=== PATIENT | female | born 1975 | race Caucasian/White ===

== ENCOUNTER 2018-06-08 16:42 | Emergency (ER) | payer OTHER, SELFPAY ==
[2018-06-08 16:47] VITALS: BP 124/76; PULSE 68; RESP 20; TEMP 36.7; O2SAT 100
[2018-06-08 17:35] LABS: Add Manual Diff / Slide Review NO; Basophils Percent Auto 0.4 % (0-2); Eosinophils Percent Auto 1.6 % (2-4); Hematocrit 37.6 % (36-46); Hemoglobin 12.1 g/dL (12.0-16.0); Lymphocytes Percent Auto 26.4 % (25-40); Mean Corpuscular HGB Conc 32.1 % (30-36); Mean Corpuscular Hemoglobin 23.1 PG (26-34); Mean Corpuscular Volume 71.9 fL (80-100); Monocytes Percent Auto 7.6 % (3-14); Neutrophils Absolute Auto 3600 /uL (3000-5900); Platelet Count 268 X10^3/uL (150-400); Red Blood Cell Count 5.23 X10^6/uL (4.0-5.2); Red Cell Distribution Width 15.2 % (11.6-14.8); White Blood Cell Count 5.7 X10^3/uL (4.5-11.0)
[2018-06-08 17:44] LABS: Ethanol (ETOH) < 10 mg/dL
[2018-06-08 17:46] LABS: Alanine Aminotransferase 32 IU/L (9-52); Albumin 4.4 g/dL (3.5-5.0); Albumin Globulin Ratio 1.6 (1.0-2.8); Alkaline Phosphatase 53 U/L (38-126); Aspartate Aminotransferase 29 IU/L (14-36); BUN Creatinine Ratio 8.9 (6-22); Bilirubin Total 0.3 mg/dL (0.2-1.3); Blood Urea Nitrogen 8 mg/dL (7-17); Calcium 9.2 mg/dL (8.4-10.2); Carbon Dioxide 28 mmol/L (22-32); Chloride 101 mmol/L (98-107); Estimated Glomerular Filt Rate > 60.0 mL/min (>60); Globulin 2.7 g/dL (1.7-4.1); Glucose 92 mg/dL (70-100); HEMOLYSIS < 15 (0-50); Sodium 141 mmol/L (137-145); Total Protein 7.1 g/dL (6.3-8.2)
[2018-06-08 17:53] LABS: RBC Urine None Seen (0-5/HPF)
[2018-06-08 17:56] LABS: Appearance Urine UA CLEAR; Bilirubin Urine UA NEGATIVE (NEGATIVE); Color Urine UA YELLOW; Glucose Urine UA NEGATIVE (Normal); Ketones Urine UA NEGATIVE (NEGATIVE); Leukocyte Esterase Urine UA NEGATIVE (NEGATIVE); Nitrite Urine UA NEGATIVE (Negative); Occult Blood Urine UA NEGATIVE (Negative); Protein Urine UA NEGATIVE (Negative); Urobilinogen Urine UA 0.2 E.U./dL (0.2)
[2018-06-08 18:03] LABS: Urine Amphetamines Negative (Negative); Urine Barbiturates Negative (Negative); Urine Benzodiazepines Positive (Negative); Urine Cocaine Negative (Negative); Urine MDMA Negative (Negative); Urine Methadone Negative (Negative); Urine Methamphetamines Negative (Negative); Urine Morphine/Opi cutoff 2000 Negative (Negative); Urine Oxycodone Negative (Negative); Urine Phencyclidine Negative (Negative); Urine Tetrahydrocannabinol Negative (Negative); Urine Tricyclic Antidepressant Negative (Negative)
--- NOTE | 2018-06-08 18:04 | ED.PSYCH ---
HPI - Psych General Chief Complaint: Psychiatric Symptoms Stated Complaint: ACTIVE suicidal Time Seen by Provider: 06/08/18 17:05 Source: patient and family Mode of arrival: ambulatory Limitations: no limitations History of Present Illness HPI Narrative: 43-year-old nonsmoking female presents with her significant other and the chief complaint of suicidal ideation with plan. The patient is a rapid cycling bipolar with anxiety who has been medically compliant developed suicidal ideation last evening while driving home from [place]. She keeps a knife in her car and plan to deeply lacerated her arm and see if she would bleed out before she either got to a hassle or crash. When she got home she contemplated taking all of the acetaminophen in her house or even her daughter's insulin. She made it through the evening okay and took a Xanax to help her sleep. Earlier today she was seen and evaluated by her psychiatrist whom sent her to the emergency department for evaluation. The patient denies any substance abuse or ingestion. about 1 year ago she attempted suicide with an overdose of Ambien and was admitted to our ICU before being medically cleared and then transferred to [facility]. she states her main trigger is stress associated with her job MD complaint: suicidal ideation and feels depressed Onset (ago): hour(s) Duration: constant History of same: Yes Relieving factors: none Context: significant life stressor Associated psychiatric symptoms: depression and suicidal ideation Associated symptoms: denies other symptoms Treatments prior to arrival: none If self harm: admits thoughts of self harm and has plan Related Data Home Medications Medication Instructions Recorded Confirmed alprazolam 1 - 2 mg PO BEDTIME #0 05/05/17 06/08/18 albuterol sulfate [Ventolin HFA] 2 puff INHALATION Q6H PRN 06/08/18 06/08/18 fluoxetine 40 mg PO DAILY 06/08/18 06/08/18 lamotrigine 150 mg PO DAILY 06/08/18 06/08/18 Allergies Allergy/AdvReac Type Severity Reaction Status Date / Time Sulfa (Sulfonamide Allergy Intermediate RASH Unverified 11/12/17 12:18 Antibiotics) [SULFA (SULFONAMIDE ANTIBIOTICS)] Review of Systems Review of Systems All systems reviewed & are unremarkable except as noted in HPI and below Constitutional Denies chills, Denies fever(s), Denies lethargy and Denies weakness Eyes Denies change in vision, Denies eye discharge, Denies irritation and Denies loss of vision ENT Ears, Nose, Mouth, and Throat: Denies change in voice, Denies neck pain and Denies sore throat Cardiovascular Denies chest pain, Denies irregular heart rhythm, Denies lightheadedness, Denies palpitations, Denies dyspnea, Denies dyspnea on exertion and Denies orthopnea Respiratory Denies cough, Denies dyspnea, Denies dyspnea on exertion and Denies wheezing Gastrointestinal Gastrointestinal: Denies abdominal pain, Denies change in bowel habits, Denies diarrhea, Denies nausea and Denies vomiting Genitourinary Denies hematuria, Denies flank pain, Denies urinary incontinence and Denies urinary urgency Musculoskeletal Denies neck pain Integumentary/Breasts Denies pruritus, Denies erythema, Denies rash and Denies wounds Neurologic Denies confusion, Denies loss of vision and Denies weakness Psychiatric Denies anxiety, Denies confusion, Reports depression, Denies paranoia, Denies visual hallucinations, Denies hallucinations, Denies tactile hallucinations, Denies homicidal ideation and Reports suicidal ideation Endocrine Denies palpitations Hematologic/Lymphatic Denies easy bruising Allergic/Immunologic Denies wheezing [facility] Social History Smoking Status: Never smoker Exam Narrative Exam Narrative: GENERAL: This is a well-nourished, well-developed patient, in mild distress. tearful but making good eye contact and conversational HEAD: Atraumatic. Normocephalic. No temporal or scalp tenderness. EYES: Pupils equal round and reactive. Extraocular motions intact. No scleral icterus. No injection or drainage. ENT: Nose without bleeding, purulent drainage or septal hematoma. Throat without erythema, tonsillar hypertrophy or exudate. Uvula midline. Airway patent. NECK: Trachea midline. No JVD or lymphadenopathy. Supple, nontender, no meningeal signs. CARDIOVASCULAR: Regular rate and rhythm without murmurs, gallops, or rubs. RESPIRATORY: Clear to auscultation. Breath sounds equal bilaterally. No wheezes, rales, or rhonchi. GASTROINTESTINAL: Abdomen soft, non-tender, nondistended. No hepato-splenomegaly, or palpable masses. No guarding. EXTREMITIES: No clubbing, cyanosis, or edema. No joint tenderness, effusion, or edema noted. BACK: Nontender without deformity or crepitance. No flank tenderness. NEURO: AOx3. SKIN: No rash or erythema. Initial Vital Signs Initial Vital Signs: Vital Signs Temperature 98.1 F 06/08/18 16:47 Pulse Rate 68 06/08/18 16:47 Respiratory Rate 20 06/08/18 16:47 Blood Pressure 124/76 06/08/18 16:47 Pulse Oximetry 100 06/08/18 16:47 Course Course Narrative: patient medically cleared at 6:30 p.m., call to [facility] Orders Ordered: ED Orders 06/08/18 17:25 CBC [Complete Blood Count AUTO DIFF] Stat CMP [Comprehensive Metabolic Panel] Stat Ethanol (ETOH) Stat TSH [Thyroid Stimulating Hormone] Stat Reevaluation(s) Reevaluation #1: patient resting comfortably. Consultations Consultation #1: all paperwork has been faxed to [facility]. They do have available beds and are hopeful that they will be able to accept this cooperative suicidal patient provide her the care she needs. They are currently evaluating labs and note. It is my opinion that she is appropriate for hospitalization and stabilization of her condition Vital Signs - 8 hr 06/08/18 16:47 Temperature 98.1 F Pulse Rate 68 Respiratory Rate 20 Blood Pressure 124/76 Pulse Oximetry 100 MDM - Psych Lab Data Result diagrams: 06/08/18 17:25 06/08/18 17:25 Lab Results 06/08/18 06/08/18 06/08/18 Range/Units 17:25 17:25 17:25 WBC 5.7 (4.5-11.0) X10^3/uL RBC 5.23 H (4.0-5.2) X10^6/uL Hgb 12.1 (12.0-16.0) g/dL Hct 37.6 (36-46) % MCV 71.9 L (80-100) fL MCH 23.1 L (26-34) PG MCHC 32.1 (30-36) % RDW 15.2 H (11.6-14.8) % Plt Count 268 (150-400) X10^3/uL Neut % (Auto) 64.0 (50-75) % Lymph % (Auto) 26.4 (25-40) % [place] % (Auto) 7.6 (3-14) % Eos % (Auto) 1.6 L (2-4) % Baso % (Auto) 0.4 (0-2) % Neut # (Auto) 3600 (9665-4997) /uL Sodium 141 (137-145) mmol/L Potassium 4.0 (3.4-5.1) mmol/L Chloride 101 (98-107) mmol/L Carbon Dioxide 28 (22-32) mmol/L BUN 8 (7-17) mg/dL Creatinine 0.90 (0.52-1.04) mg/dL Estimated GFR > 60.0 (>60) mL/min BUN/Creatinine Ratio 8.9 (6-22) Glucose 92 (70-100) mg/dL Calcium 9.2 (8.4-10.2) mg/dL Total Bilirubin 0.3 (0.2-1.3) mg/dL AST 29 (14-36) IU/L ALT 32 (9-52) IU/L Alkaline Phosphatase 53 (38-126) U/L Total Protein 7.1 (6.3-8.2) g/dL Albumin 4.4 (3.5-5.0) g/dL Globulin 2.7 (1.7-4.1) g/dL Albumin/Globulin Ratio 1.6 (1.0-2.8) TSH 2.55 (0.47-4.68) uIU/mL Urine Color Urine Appearance Urine pH (4.5-8.0) Ur Specific [place] (1.000-1.035) Urine Protein (Negative) Urine Glucose (UA) (Normal) g/dL Urine Ketones (NEGATIVE) Urine Occult Blood (Negative) Urine Nitrate (Negative) Urine Bilirubin (NEGATIVE) Urine Urobilinogen (0.2) E.U./dL Ur Leukocyte Esterase (NEGATIVE) Urine RBC (0-5/HPF) Urine WBC (0-5/HPF) Ur Squamous Epith Cells Urine Bacteria (None) Ur Culture Indicated? Micro UA Comment Urine Opiates Screen (Negative) Ur Oxycodone Screen (Negative) Urine Methadone Screen (Negative) Ur Barbiturates Screen (Negative) U Tricyclic Antidepress (Negative) Ur Phencyclidine Scrn (Negative) Ur Amphetamines Screen (Negative) U Methamphetamines Scrn (Negative) Ur MDMA Scrn (Ecstasy) (Negative) U Benzodiazepines Scrn (Negative) Urine Cocaine Screen (Negative) U Marijuana (THC) Screen (Negative) Ethyl Alcohol mg/dL 06/08/18 06/08/18 06/08/18 Range/Units 17:25 Unknown Unknown WBC (4.5-11.0) X10^3/uL RBC (4.0-5.2) X10^6/uL Hgb (12.0-16.0) g/dL Hct (36-46) % MCV (80-100) fL MCH (26-34) PG MCHC (30-36) % RDW (11.6-14.8) % Plt Count (150-400) X10^3/uL Neut % (Auto) (50-75) % Lymph % (Auto) (25-40) % Ogle % (Auto) (3-14) % Eos % (Auto) (2-4) % Baso % (Auto) (0-2) % Neut # (Auto) (5837-2233) /uL Sodium (137-145) mmol/L Potassium (3.4-5.1) mmol/L Chloride (98-107) mmol/L Carbon Dioxide (22-32) mmol/L BUN (7-17) mg/dL Creatinine (0.52-1.04) mg/dL Estimated GFR (>60) mL/min BUN/Creatinine Ratio (6-22) Glucose (70-100) mg/dL Calcium (8.4-10.2) mg/dL Total Bilirubin (0.2-1.3) mg/dL AST (14-36) IU/L ALT (9-52) IU/L Alkaline Phosphatase (38-126) U/L Total Protein (6.3-8.2) g/dL Albumin (3.5-5.0) g/dL Globulin (1.7-4.1) g/dL Albumin/Globulin Ratio (1.0-2.8) TSH (0.47-4.68) uIU/mL Urine Color Yellow Urine Appearance Clear Urine pH 7.0 (4.5-8.0) Ur Specific [place] 1.010 (1.000-1.035) Urine Protein Negative (Negative) Urine Glucose (UA) Negative (Normal) g/dL Urine Ketones Negative (NEGATIVE) Urine Occult Blood Negative (Negative) Urine Nitrate Negative (Negative) Urine Bilirubin Negative (NEGATIVE) Urine Urobilinogen 0.2 (0.2) E.U./dL Ur Leukocyte Esterase Negative (NEGATIVE) Urine RBC None seen (0-5/HPF) Urine WBC 0-1/hpf (0-5/HPF) Ur Squamous Epith Cells 0-1 /hpf Urine Bacteria Few (2-10) H (None) Ur Culture Indicated? Cult not indicated Micro UA Comment Not Reportable Urine Opiates Screen Negative (Negative) Ur Oxycodone Screen Negative (Negative) Urine Methadone Screen Negative (Negative) Ur Barbiturates Screen Negative (Negative) U Tricyclic Antidepress Negative (Negative) Ur Phencyclidine Scrn Negative (Negative) Ur Amphetamines Screen Negative (Negative) U Methamphetamines Scrn Negative (Negative) Ur MDMA Scrn (Ecstasy) Negative (Negative) U Benzodiazepines Scrn Positive H (Negative) Urine Cocaine Screen Negative (Negative) U Marijuana (THC) Screen Negative (Negative) Ethyl Alcohol < 10 mg/dL Point of Care Testing Test Results Negative Discharge Plan Departure Patient Disposition: Xfer Psychiatric Hosp Clinical Impression: Depression with suicidal ideation
[2018-06-08 18:05] LABS: Squamous Epithelial Cell Urine 0-1 /HPF; WBC Urine 0-1/HPF (0-5/HPF)
[2018-06-08 18:06] LABS: Bacteria Urine Few (2-10); Culture Indicated Urine Cult Not Indicated
[2018-06-08 18:27] LABS: Thyroid Stimulating Hormone 2.55 uIU/mL (0.47-4.68)
--- NOTE | 2018-06-08 18:39 | ED_ITS ---
HPI - Psych General Chief Complaint: Psychiatric Symptoms Stated Complaint: ACTIVE suicidal Time Seen by Provider: 06/08/18 17:05 Source: patient and family Mode of arrival: ambulatory Limitations: no limitations History of Present Illness HPI Narrative: 43-year-old nonsmoking female presents with her significant other and the chief complaint of suicidal ideation with plan. The patient is a rapid cycling bipolar with anxiety who has been medically compliant developed suicidal ideation last evening while driving home from [place]. She keeps a knife in her car and plan to deeply lacerated her arm and see if she would bleed out before she either got to a hassle or crash. When she got home she contemplated taking all of the acetaminophen in her house or even her daughter' s insulin. She made it through the evening okay and took a Xanax to help her sleep. Earlier today she was seen and evaluated by her psychiatrist whom sent her to the emergency department for evaluation. The patient denies any substance abuse or ingestion. about 1 year ago she attempted suicide with an overdose of Ambien and was admitted to our ICU before being medically cleared and then transferred to [facility]. she states her main trigger is stress associated with her job MD complaint: suicidal ideation and feels depressed Onset (ago): hour(s) Duration: constant History of same: Yes Relieving factors: none Context: significant life stressor Associated psychiatric symptoms: depression and suicidal ideation Associated symptoms: denies other symptoms Treatments prior to arrival: none If self harm: admits thoughts of self harm and has plan Related Data Home Medications Medication Instructions Recorded Confirmed alprazolam 1 - 2 mg PO BEDTIME #0 05/05/17 06/08/18 albuterol sulfate [Ventolin HFA] 2 puff INHALATION Q6H PRN 06/08/18 06/08/18 fluoxetine 40 mg PO DAILY 06/08/18 06/08/18 lamotrigine 150 mg PO DAILY 06/08/18 06/08/18 Allergies Allergy/AdvReac Type Severity Reaction Status Date / Time Sulfa (Sulfonamide Allergy Intermediate RASH Unverified 11/12/17 12:18 Antibiotics) [SULFA (SULFONAMIDE ANTIBIOTICS)] Review of Systems Review of Systems All systems reviewed & are unremarkable except as noted in HPI and below Constitutional Denies chills, Denies fever(s), Denies lethargy and Denies weakness Eyes Denies change in vision, Denies eye discharge, Denies irritation and Denies loss of vision ENT Ears, Nose, Mouth, and Throat: Denies change in voice, Denies neck pain and Denies sore throat Cardiovascular Denies chest pain, Denies irregular heart rhythm, Denies lightheadedness, Denies palpitations, Denies dyspnea, Denies dyspnea on exertion and Denies orthopnea Respiratory Denies cough, Denies dyspnea, Denies dyspnea on exertion and Denies wheezing Gastrointestinal Gastrointestinal: Denies abdominal pain, Denies change in bowel habits, Denies diarrhea, Denies nausea and Denies vomiting Genitourinary Denies hematuria, Denies flank pain, Denies urinary incontinence and Denies urinary urgency Musculoskeletal Denies neck pain Integumentary/Breasts Denies pruritus, Denies erythema, Denies rash and Denies wounds Neurologic Denies confusion, Denies loss of vision and Denies weakness Psychiatric Denies anxiety, Denies confusion, Reports depression, Denies paranoia, Denies visual hallucinations, Denies hallucinations, Denies tactile hallucinations, Denies homicidal ideation and Reports suicidal ideation Endocrine Denies palpitations Hematologic/Lymphatic Denies easy bruising Allergic/Immunologic Denies wheezing [facility] Social History Smoking Status: Never smoker Exam Narrative Exam Narrative: GENERAL: This is a well-nourished, well-developed patient, in mild distress. tearful but making good eye contact and conversational HEAD: Atraumatic. Normocephalic. No temporal or scalp tenderness. EYES: Pupils equal round and reactive. Extraocular motions intact. No scleral icterus. No injection or drainage. ENT: Nose without bleeding, purulent drainage or septal hematoma. Throat without erythema, tonsillar hypertrophy or exudate. Uvula midline. Airway patent. NECK: Trachea midline. No JVD or lymphadenopathy. Supple, nontender, no meningeal signs. CARDIOVASCULAR: Regular rate and rhythm without murmurs, gallops, or rubs. RESPIRATORY: Clear to auscultation. Breath sounds equal bilaterally. No wheezes , rales, or rhonchi. GASTROINTESTINAL: Abdomen soft, non-tender, nondistended. No hepato-splenomegaly , or palpable masses. No guarding. EXTREMITIES: No clubbing, cyanosis, or edema. No joint tenderness, effusion, or edema noted. BACK: Nontender without deformity or crepitance. No flank tenderness. NEURO: AOx3. SKIN: No rash or erythema. Initial Vital Signs Initial Vital Signs: Vital Signs Temperature 98.1 F 06/08/18 16:47 Pulse Rate 68 06/08/18 16:47 Respiratory Rate 20 06/08/18 16:47 Blood Pressure 124/76 06/08/18 16:47 Pulse Oximetry 100 06/08/18 16:47 Course Course Narrative: patient medically cleared at 6:30 p.m., call to [facility] Orders Ordered: ED Orders 06/08/18 17:25 CBC [Complete Blood Count AUTO DIFF] Stat CMP [Comprehensive Metabolic Panel] Stat Ethanol (ETOH) Stat TSH [Thyroid Stimulating Hormone] Stat Reevaluation(s) Reevaluation #1: patient resting comfortably. Consultations Consultation #1: all paperwork has been faxed to [facility]. They do have available beds and are hopeful that they will be able to accept this cooperative suicidal patient provide her the care she needs. They are currently evaluating labs and note. It is my opinion that she is appropriate for hospitalization and stabilization of her condition Vital Signs - 8 hr 06/08/18 16:47 Temperature 98.1 F Pulse Rate 68 Respiratory Rate 20 Blood Pressure 124/76 Pulse Oximetry 100 MDM - Psych Lab Data Result diagrams: 06/08/18 17:25 06/08/18 17:25 Lab Results 06/08/18 06/08/18 06/08/18 Range/Units 17:25 17:25 17:25 WBC 5.7 (4.5-11.0) X10^3/uL RBC 5.23 H (4.0-5.2) X10^6/uL Hgb 12.1 (12.0-16.0) g/dL Hct 37.6 (36-46) % MCV 71.9 L (80-100) fL MCH 23.1 L (26-34) PG MCHC 32.1 (30-36) % RDW 15.2 H (11.6-14.8) % Plt Count 268 (150-400) X10^3/uL Neut % (Auto) 64.0 (50-75) % Lymph % (Auto) 26.4 (25-40) % [place] % (Auto) 7.6 (3-14) % Eos % (Auto) 1.6 L (2-4) % Baso % (Auto) 0.4 (0-2) % Neut # (Auto) 3600 (4328-2846) /uL Sodium 141 (137-145) mmol/L Potassium 4.0 (3.4-5.1) mmol/L Chloride 101 (98-107) mmol/L Carbon Dioxide 28 (22-32) mmol/L BUN 8 (7-17) mg/dL Creatinine 0.90 (0.52-1.04) mg/dL Estimated GFR > 60.0 (>60) mL/min BUN/Creatinine Ratio 8.9 (6-22) Glucose 92 (70-100) mg/dL Calcium 9.2 (8.4-10.2) mg/dL Total Bilirubin 0.3 (0.2-1.3) mg/dL AST 29 (14-36) IU/L ALT 32 (9-52) IU/L Alkaline Phosphatase 53 (38-126) U/L Total Protein 7.1 (6.3-8.2) g/dL Albumin 4.4 (3.5-5.0) g/dL Globulin 2.7 (1.7-4.1) g/dL Albumin/Globulin Ratio 1.6 (1.0-2.8) TSH 2.55 (0.47-4.68) uIU/mL Urine Color Urine Appearance Urine pH (4.5-8.0) Ur Specific [place] (1.000-1.035) Urine Protein (Negative) Urine Glucose (UA) (Normal) g/dL Urine Ketones (NEGATIVE) Urine Occult Blood (Negative) Urine Nitrate (Negative) Urine Bilirubin (NEGATIVE) Urine Urobilinogen (0.2) E.U./dL Ur Leukocyte Esterase (NEGATIVE) Urine RBC (0-5/HPF) Urine WBC (0-5/HPF) Ur Squamous Epith Cells Urine Bacteria (None) Ur Culture Indicated? Micro UA Comment Urine Opiates Screen (Negative) Ur Oxycodone Screen (Negative) Urine Methadone Screen (Negative) Ur Barbiturates Screen (Negative) U Tricyclic Antidepress (Negative) Ur Phencyclidine Scrn (Negative) Ur Amphetamines Screen (Negative) U Methamphetamines Scrn (Negative) Ur MDMA Scrn (Ecstasy) (Negative) U Benzodiazepines Scrn (Negative) Urine Cocaine Screen (Negative) U Marijuana (THC) Screen (Negative) Ethyl Alcohol mg/dL 06/08/18 06/08/18 06/08/18 Range/Units 17:25 Unknown Unknown WBC (4.5-11.0) X10^3/uL RBC (4.0-5.2) X10^6/uL Hgb (12.0-16.0) g/dL Hct (36-46) % MCV (80-100) fL MCH (26-34) PG MCHC (30-36) % RDW (11.6-14.8) % Plt Count (150-400) X10^3/uL Neut % (Auto) (50-75) % Lymph % (Auto) (25-40) % [place] % (Auto) (3-14) % Eos % (Auto) (2-4) % Baso % (Auto) (0-2) % Neut # (Auto) (8522-8601) /uL Sodium (137-145) mmol/L Potassium (3.4-5.1) mmol/L Chloride (98-107) mmol/L Carbon Dioxide (22-32) mmol/L BUN (7-17) mg/dL Creatinine (0.52-1.04) mg/dL Estimated GFR (>60) mL/min BUN/Creatinine Ratio (6-22) Glucose (70-100) mg/dL Calcium (8.4-10.2) mg/dL Total Bilirubin (0.2-1.3) mg/dL AST (14-36) IU/L ALT (9-52) IU/L Alkaline Phosphatase (38-126) U/L Total Protein (6.3-8.2) g/dL Albumin (3.5-5.0) g/dL Globulin (1.7-4.1) g/dL Albumin/Globulin Ratio (1.0-2.8) TSH (0.47-4.68) uIU/mL Urine Color Yellow Urine Appearance Clear Urine pH 7.0 (4.5-8.0) Ur Specific [place] 1.010 (1.000-1.035) Urine Protein Negative (Negative) Urine Glucose (UA) Negative (Normal) g/dL Urine Ketones Negative (NEGATIVE) Urine Occult Blood Negative (Negative) Urine Nitrate Negative (Negative) Urine Bilirubin Negative (NEGATIVE) Urine Urobilinogen 0.2 (0.2) E.U./dL Ur Leukocyte Esterase Negative (NEGATIVE) Urine RBC None seen (0-5/HPF) Urine WBC 0-1/hpf (0-5/HPF) Ur Squamous Epith Cells 0-1 /hpf Urine Bacteria Few (2-10) H (None) Ur Culture Indicated? Cult not indicated Micro UA Comment Not Reportable Urine Opiates Screen Negative (Negative) Ur Oxycodone Screen Negative (Negative) Urine Methadone Screen Negative (Negative) Ur Barbiturates Screen Negative (Negative) U Tricyclic Antidepress Negative (Negative) Ur Phencyclidine Scrn Negative (Negative) Ur Amphetamines Screen Negative (Negative) U Methamphetamines Scrn Negative (Negative) Ur MDMA Scrn (Ecstasy) Negative (Negative) U Benzodiazepines Scrn Positive H (Negative) Urine Cocaine Screen Negative (Negative) U Marijuana (THC) Screen Negative (Negative) Ethyl Alcohol < 10 mg/dL Point of Care Testing Test Results Negative Discharge Plan Departure Patient Disposition: Xfer Psychiatric Hosp Clinical Impression: Depression with suicidal ideation
[2018-06-08 20:31] VITALS: BP 118/74; PULSE 70; RESP 20; TEMP 37.1; O2SAT 99
--- NOTE | 2018-06-08 21:13 | PC.NURSE ---
2100 Report called to Shankar RAMIREZ at [facility]
== END 2018-06-08 20:32 ==
PROVIDERS: Emergency Provider Emergency Medicine
DX: F32.9 Major depressive disorder, single episode, unspecified (principal); R45.851 Suicidal ideations
CPT/HCPCS: 36415; 80053; 80305; 80320; 81001; 81025; 84443; 85025; 99282; 99285

== ENCOUNTER → 2019-01-04 12:23 | Outpatient (CLI) | payer OTHER, MEDICAID, SELFPAY ==
[2019-01-04 13:10] LABS: Add Manual Diff / Slide Review NO; Basophils Absolute Auto 0 /uL (0-100); Basophils Percent Auto 0.5 % (0-2); Eosinophils Absolute Auto 300 /uL (0-450); Eosinophils Percent Auto 4.5 % (2-4); Hematocrit 37.3 % (36-46); Hemoglobin 11.7 g/dL (12.0-16.0); Lymphocytes Absolute Auto 1700 /uL (1100-4500); Lymphocytes Percent Auto 25.7 % (25-40); Mean Corpuscular HGB Conc 31.5 % (30-36); Mean Corpuscular Volume 73.1 fL (80-100); Monocytes Absolute Auto 600 /uL (0-900); Monocytes Percent Auto 8.5 % (3-14); Neutrophils Absolute Auto 4100 /uL (1500-7000); Neutrophils Percent Auto 60.8 % (50-75); Platelet Count 326 X10^3/uL (150-400); Red Cell Distribution Width 14.6 % (11.6-14.8); White Blood Cell Count 6.7 X10^3/uL (4.5-11.0)
[2019-01-04 14:01] LABS: Thyroid Stimulating Hormone 1.74 uIU/mL (0.47-4.68)
== END ==
PROVIDERS: Visit Provider Specialist
DX: N92.0 Excessive and frequent menstruation with regular cycle (principal)
CPT/HCPCS: 36415; 84443; 85025

== ENCOUNTER 2019-02-01 11:58 | Day surgery (SDC) | payer OTHER, MEDICAID, SELFPAY ==
[2019-01-15 09:57] VITALS: BMI 35.8
[2019-02-01 12:11] VITALS: BP 113/72; PULSE 89; RESP 15; TEMP 36.6; O2SAT 98; BMI 35.8
--- NOTE | 2019-02-01 13:23 | PM.PREOP ---
Pre-operative Note Interval Note History & Physical reviewed/Exam performed by Physician: Yes Changes to H&P: No
--- NOTE | 2019-02-01 13:54 | SUR.OPER ---
Lithotomy on padded OR bed, head on pillow, arms secured on padded arm boards at <90 degrees abduction. Legs secured in padded yellow fins stirrups.
--- NOTE | 2019-02-01 14:11 | PM.OP.1 ---
Operative Date/Time/Diagnoses Date of procedure: 02/01/19 Time of procedure: 14:11 Pre-op diagnosis: Menorrhagia Post-op diagnosis: same Procedure & Clinicians Procedure: Hysteroscopy with NovaSure endometrial ablation Same procedure as scheduled: Yes Indications: Menorrhagia Surgeon: Afsaneh Ash Click Yes if Unassisted: Yes Anesthesia Type: General Operative Notes Findings: Normal exam under anesthesia with no intracavitary lesions and thin endometrium Closure Type: not applicable Specimen(s): none sent Estimated Blood Loss (mL): 1 Blood products transfused: none Procedure in detail: Patient was brought to the operating room where she was underwent general anesthesia was placed in the [facility]. Pulsatile stockings were in place and functional. Antibiotics were not indicated. Warming was with blankets. A check system was reviewed with the staff in the room. A single-tooth tenaculum was placed on the anterior lip of the cervix. The cervix was already significantly dilated. The hysteroscope was placed through the cervix into the uterus with saline solution running. There was no obvious intrauterine pathology just some blood clots. The endometrial lining was very thin. The NovaSure sound was used to determine the length of the uterus which was over 5 cm. This was set on the NovaSure device. The device was placed in the uterus and the width determined to be 4 cm. The length and width were entered into the NovaSure machine. The plunger was pushed to the cervix to effect a good vacuum seal. This was documented by the machine. Cauterization was done with a total power of 110 for 117 seconds. The NovaSure array was pulled back into the device and then the device removed. Patient tolerated the procedure well. Counts of instruments and sponges were correct. Patient went to recovery room in good condition. Complications: none Condition: stable Disposition: same day surgery Plan for aftercare: Routine post op.
[2019-02-01 14:12] VITALS: BP 98/43; PULSE 74; RESP 12; TEMP 36.9; O2SAT 98
--- NOTE | 2019-02-01 14:14 | P.OP_ITS ---
Operative Date/Time/Diagnoses Date of procedure: 02/01/19 Time of procedure: 14:11 Pre-op diagnosis: Menorrhagia Post-op diagnosis: same Procedure & Clinicians Procedure: Hysteroscopy with NovaSure endometrial ablation Same procedure as scheduled: Yes Indications: Menorrhagia Surgeon: Afsaneh Ash Click Yes if Unassisted: Yes Anesthesia Type: General Operative Notes Findings: Normal exam under anesthesia with no intracavitary lesions and thin endometrium Closure Type: not applicable Specimen(s): none sent Estimated Blood Loss (mL): 1 Blood products transfused: none Procedure in detail: Patient was brought to the operating room where she was und erwent general anesthesia was placed in the [facility]. Pulsatile stockings were in place and functional. Antibiotics were not indicated. Warming was with blankets. A check system was reviewed with the staff in the room. A single-tooth tenaculum was placed on the anterior lip of the cervix. The cervix was already significantly dilated. The hysteroscope was placed through the cervix into the uterus with saline solution running. There was no obvious intrauterine pathology just some blood clots. The endometrial lining was very thin. The NovaSure sound was used to determine the length of the uterus which was over 5 cm. This was set on the NovaSure device. The device was placed in the uterus and the width determined to be 4 cm. The length and width were entered into the NovaSure machine. The plunger was pushed to the cervix to effect a good vacuum seal. This was documented by the machine. Cauterization was done with a total power of 110 for 117 seconds. The NovaSure array was pulled back into the device and then the device removed. Patient tolerated the procedure well. Counts of instruments and sponges were correct. Patient went to recovery room in good condition. Complications: none Condition: stable Disposition: same day surgery Plan for aftercare: Routine post op.
[2019-02-01 14:17] VITALS: BP 99/49; PULSE 74; RESP 12; O2SAT 98
[2019-02-01 14:22] VITALS: BP 100/52; PULSE 82; RESP 14; O2SAT 99
[2019-02-01] MEDS: OXYCODONE/ACETAMINOPHEN 5/325 TABLET 1 TAB PO (14:31)
[2019-02-01 14:33] VITALS: BP 110/61; PULSE 87; RESP 14; TEMP 36.2; O2SAT 100
[2019-02-01 14:42] VITALS: BP 104/59; PULSE 82; RESP 12; O2SAT 98
--- NOTE | 2019-02-01 15:07 | SUR.PHASEII ---
Assumed care from Isabel, Pt ready to go, prescription given to mom, pt left when ready and left in stable condition.
== END 2019-02-01 15:00 | disposition home or self-care (01) ==
PROVIDERS: PCP Family Medicine; Visit Provider Specialist
PROC: 0U5B8ZZ Destruction of Endometrium, Via Natural or Artificial Opening Endoscopic (ICD-10-PCS; CPT 58563; principal; 2019-02-01 13:30)
DX: N92.0 Excessive and frequent menstruation with regular cycle (principal); F31.9 Bipolar disorder, unspecified; F17.200 Nicotine dependence, unspecified, uncomplicated
CPT/HCPCS: 58563; J1100; J1885; J2250; J2405; J2704; J3010

== ENCOUNTER 2019-09-13 16:18 | Emergency (ER) | payer OTHER, MEDICAID, SELFPAY ==
[2019-09-13 16:26] VITALS: PULSE 94; RESP 18; TEMP 36.8; O2SAT 100
[2019-09-13 16:48] VITALS: BP 120/65
[2019-09-13 17:02] LABS: Add Manual Diff / Slide Review NO; Basophils Absolute Auto 0 /uL (0-100); Basophils Percent Auto 0.5 % (0-2); Eosinophils Absolute Auto 200 /uL (0-450); Eosinophils Percent Auto 3.8 % (2-4); Hematocrit 37.9 % (36-46); Hemoglobin 12.3 g/dL (12.0-16.0); Lymphocytes Absolute Auto 1600 /uL (1100-4500); Lymphocytes Percent Auto 28.8 % (25-40); Mean Corpuscular HGB Conc 32.3 % (30-36); Mean Corpuscular Hemoglobin 23.5 PG (26-34); Mean Corpuscular Volume 72.6 fL (80-100); Monocytes Absolute Auto 400 /uL (0-900); Monocytes Percent Auto 7.8 % (3-14); Neutrophils Absolute Auto 3200 /uL (1500-7000); Neutrophils Percent Auto 59.1 % (50-75); Platelet Count 286 X10^3/uL (150-400); Red Blood Cell Count 5.22 X10^6/uL (4.0-5.2); White Blood Cell Count 5.4 X10^3/uL (4.5-11.0)
[2019-09-13 17:14] LABS: Acetaminophen < 10 ug/mL (10-30); Alanine Aminotransferase 19 IU/L (<35); Albumin 4.1 g/dL (3.5-5.0); Albumin Globulin Ratio 1.4 (1.0-2.8); Alkaline Phosphatase 62 U/L (38-126); Aspartate Aminotransferase 23 IU/L (14-36); BUN Creatinine Ratio 13.3 (6-22); Bilirubin Total 0.2 mg/dL (0.2-1.3); Blood Urea Nitrogen 12 mg/dL (7-17); Calcium 9.2 mg/dL (8.4-10.2); Carbon Dioxide 28 mmol/L (22-32); Chloride 106 mmol/L (98-107); Estimated Glomerular Filt Rate > 60.0 mL/min (>60); Ethanol (ETOH) < 10 mg/dL; Globulin 2.9 g/dL (1.7-4.1); Glucose 93 mg/dL (70-100); HEMOLYSIS < 15 (0-50); Potassium 4.2 mmol/L (3.4-5.1); Salicylate < 1.0 mg/dL (<20); Sodium 141 mmol/L (137-145)
--- NOTE | 2019-09-13 17:23 | ED.PSYCH ---
HPI - Psych <ARLETH Major - Last Filed: 09/13/19 21:43> General Chief Complaint: Psychiatric Symptoms Stated Complaint: SI Time Seen by Provider: 09/13/19 16:53 Source: patient Mode of arrival: Ambulatory Limitations: no limitations History of Present Illness HPI Narrative: This is a 44-year-old female, occasional smoker, who presents to ED with suicidal ideation with intention with OD on Tylenol which is readily available to patient. Patient states had suicidal ideation and attempts in June 2017 with taking 60 pills of Ambien. She had suicidal ideation in 2018 and was evaluated and transferred to psych inpatient hospital for further evaluation and treatment. Patient reports she has history of borderline personality, rapid cycling bipolar type 1, anxiety and migraine headache. She has been feeling manic since , 4 days ago and slept only 2 hours that night. On Friday, she fell worsening symptoms with racing thoughts which couldn't escape from these thougths and felt scared. Patient had taken hydroxyzine, alprazolam 1-2 mg every 2 hours and had about total 4 hours sleep in between. She reports progressive worsening symptoms since Friday and when she woke up this morning she had feeling urge to when she woke up. Patient denies using other substances and reports has been sober for last 2 years from alcohol use. Patient lives with family and has a counselor at [facility]. She does have support system but she tends not to reach out to does support system easily. Patient reports her manic symptoms can get exacerbated by lack of sleep. MD complaint: suicidal ideation Related Data Home Medications Medication Instructions Recorded Confirmed alprazolam 1 - 2 mg PO BEDTIME #0 05/05/17 09/13/19 albuterol sulfate 2 puff INHALATION Q6H PRN 06/08/18 09/13/19 vrayalar PO 12/18/18 02/18/19 ondansetron HCl [Zofran] 8 mg PO TID PRN 02/01/19 02/18/19 cyclobenzaprine 10 mg PO BID 09/13/19 09/13/19 hydroxyzine pamoate 50 mg PO BEDTIME PRN 09/13/19 09/13/19 lamotrigine 200 mg PO DAILY 09/13/19 09/13/19 omeprazole 20 mg PO DAILY 09/13/19 09/13/19 Allergies Allergy/AdvReac Type Severity Reaction Status Date / Time Sulfa (Sulfonamide Allergy Intermediate RASH Verified 02/18/19 07:52 Antibiotics) [SULFA (SULFONAMIDE ANTIBIOTICS)] Review of Systems <ARLETH Major - Last Filed: 09/13/19 21:43> Review of Systems Narrative: General: Denies fever, chills, fatigue, malaise, sweats. HEENT: Denies sinus pain, ear pain, sore throat, difficulty swallowing, dizziness. Respiratory: Denies dyspnea, cough, wheezing, hemoptysis, sputum. Cardiovascular: Denies chest pain, palpitations, orthopnea, edema. Gastrointestinal: Denies nausea, vomiting, abdominal pain, diarrhea, constipation, melena. : Denies dysuria, frequency, incontinence, hematuria, urinary retention. Musculoskeletal: Denies weakness, joint pain or bony pain. Skin: Denies rash, skin lesions, or other. Neurologic: Denies weakness, headache, numbness, change in speech, confusion, seizures, incoordination. Psychiatric: See HPI 12-point review of systems is negative except for those stated above. Patient History <ARLETH Major - Last Filed: 09/13/19 21:43> Medical History (Updated 09/13/19 @ 21:41 by ARLETH Major) Anxiety (Acute) Bipolar disorder with depression (Chronic) Borderline personality disorder (Acute) Degenerative disc disease, cervical (Chronic) History of alcoholism (Acute) Menorrhagia (Acute) Migraine headache with aura (Chronic) Suicide attempt (Acute ~2016) Suicide ideation (Acute ~06/2018) Surgical History (Updated 12/18/18 @ 20:29 by Afsaneh Ash MD) H/O breast augmentation (Chronic) H/O section (Inactive) H/O tubal ligation (Inactive) History of tonsillectomy (Inactive) Social History household members: family Smoking Status: Current some day smoker Smoking Status: Current some day smoker Exam <ARLETH Major - Last Filed: 09/13/19 21:43> Narrative Exam Narrative: GEN: Alert, oriented x 3, well appearing and nourished, and in no acute distress. Head: Normal cephalic, atraumatic. No scalp or temporal tenderness, palpable mass or rash. EYES: Pupils are equal, round, and reactive to light and accommodation. Extraocular muscles are intact bilaterally. There is no subconjunctival hemorrhage, exudate and sclera non-icteric. ENT: Bilateral auditory canals and tympanic membranes clear. Hearing grossly intact. Nose without bleeding, purulent discharge or deviation. Facial sinuses nontender to palpate. Mucous membrane moist, no mucosal lesion. Throat without erythema, tonsillar hypertrophy or exudate. Uvula in midline, airway patent. Neck: Trachea in midline. No JVD, non-tender without lymphadenopathy. No masses or thyroid megaly. Supple, non-tender and no meningeal signs. CARDIAC: Normal regular rate and rhythm without murmurs, gallops, or rubs. No chest wall tenderness. No peripheral edema, cyanosis or pallor. Capillary refill is less than 2 seconds. RESPIRATORY: Lungs are clear to auscultate bilaterally. No cough, wheezes, rales, or rhonchi. No stridor, respiratory distress, increase work of breathing, or accessary muscle used. ABD: Abdomen soft, nontender and non-distended. No guarding or rebound tenderness to palpate. Bowel sounds are normal in all 4 quadrants. There is no palpable masses or organomegaly. EXT: Full painless ROM of all extremities with no loss of sensation, strength, effusion or edema. SKIN: Warm, dry, normal color for patient. No erythema, lesions or rash over visible areas. BACK: Nontender without deformity or crepitance. No flank tenderness. NEUROLOGICAL: Alert and oriented to place, time and person. Sensation and motor function intact bilaterally. No facial droops, dysphasia. PSYCHIATRIC: Good judgement and reason, without hallucinations, abnormal affect or abnormal behaviors during the examination. Patient reports suicidal ideation with overdosing medication. Initial Vital Signs Initial Vital Signs: Vital Signs Temperature 98.2 F 09/13/19 16:26 Pulse Rate 94 H 09/13/19 16:26 Respiratory Rate 18 09/13/19 16:26 Pulse Oximetry 100 09/13/19 16:26 Psych Appearance: grossly normal and well kempt Mental Status: mental status grossly normal Speech and Movement: speech and movement normal Mood: congruent mood Affect: normal affect Attitude: cooperative Thought Process: normal Thought Content: normal Judgment: judgment good <Luis Manuel Roberto MD - Last Filed: 09/15/19 15:21> Initial Vital Signs Initial Vital Signs: Vital Signs Temperature 98.2 F 09/13/19 16:26 Pulse Rate 94 H 09/13/19 16:26 Respiratory Rate 18 09/13/19 16:26 Pulse Oximetry 100 09/13/19 16:26 Scores <ARLETH Major - Last Filed: 09/13/19 21:43> GCS [place] coma scale eye opening: Spontaneous [place] coma scale verbal response: Orientated [place] coma scale motor response: Obey commands [place] coma scale total score: 15 Course <ARLETH Major - Last Filed: 09/13/19 21:43> Orders Ordered: ED Orders 09/13/19 16:45 Urine Drug Screen, Rapid Stat Urine Microscopic Stat 09/13/19 16:57 Acetaminophen Stat Complete Blood Count AUTO DIFF Stat Comprehensive Metabolic Panel Stat Ethanol (ETOH) Stat Salicylate Stat TSH [Thyroid Stimulating Hormone] Stat 09/13/19 19:12 [place] [facility] [place] [facility] Stat Vital Signs Vital signs: Vital Signs - 8 hr 09/13/19 16:26 09/13/19 16:48 09/13/19 18:32 Temperature 98.2 F 97.5 F L Pulse Rate 94 H 79 Respiratory Rate 18 16 Blood Pressure [Left Arm] 120/65 112/70 Pulse Oximetry 100 99 <Luis Manuel Roberto MD - Last Filed: 09/15/19 15:21> Orders Ordered: ED Orders 09/13/19 16:45 Urine Drug Screen, Rapid Stat Urine Microscopic Stat 09/13/19 16:57 Acetaminophen Stat Complete Blood Count AUTO DIFF Stat Comprehensive Metabolic Panel Stat Ethanol (ETOH) Stat Salicylate Stat TSH [Thyroid Stimulating Hormone] Stat 09/13/19 19:12 Consult to [facility] Contact Lens Cur[employer] Grinder Stat Vital Signs Vital signs: Vital Signs - 8 hr 09/13/19 16:26 09/13/19 16:48 09/13/19 18:32 Temperature 98.2 F 97.5 F L Pulse Rate 94 H 79 Respiratory Rate 18 16 Blood Pressure [Left Arm] 120/65 112/70 Pulse Oximetry 100 99 MDM - Psych <ARLETH Major - Last Filed: 09/13/19 21:43> Differential Diagnosis Differential diagnosis: Likely suicidal ideation, bipolar disorder, depression and acute anxiety Medical Records Attestation: I reviewed the patient's medical records. Lab Data Attestation: I reviewed the patient's lab results. Result diagrams: 09/13/19 16:57 09/13/19 16:57 Labs: Lab Results 09/13/19 09/13/19 09/13/19 Range/Units 16:45 16:45 16:57 WBC 5.4 (4.5-11.0) X10^3/uL RBC 5.22 H (4.0-5.2) X10^6/uL Hgb 12.3 (12.0-16.0) g/dL Hct 37.9 (36-46) % MCV 72.6 L (80-100) fL MCH 23.5 L (26-34) PG MCHC 32.3 (30-36) % RDW 15.0 H (11.6-14.8) % Plt Count 286 (150-400) X10^3/uL Neut % (Auto) 59.1 (50-75) % Lymph % (Auto) 28.8 (25-40) % [place] % (Auto) 7.8 (3-14) % Eos % (Auto) 3.8 (2-4) % Baso % (Auto) 0.5 (0-2) % Neut # (Auto) 3200 (1193-3212) /uL Lymph # (Auto) 1600 (3389-1723) /uL [place] # (Auto) 400 (0-900) /uL Eos # (Auto) 200 (0-450) /uL Baso # (Auto) 0 (0-100) /uL Sodium (137-145) mmol/L Potassium (3.4-5.1) mmol/L Chloride (98-107) mmol/L Carbon Dioxide (22-32) mmol/L BUN (7-17) mg/dL Creatinine (0.52-1.04) mg/dL Estimated GFR (>60) mL/min BUN/Creatinine Ratio (6-22) Glucose (70-100) mg/dL Calcium (8.4-10.2) mg/dL Total Bilirubin (0.2-1.3) mg/dL AST (14-36) IU/L ALT (<35) IU/L Alkaline Phosphatase (38-126) U/L Total Protein (6.3-8.2) g/dL Albumin (3.5-5.0) g/dL Globulin (1.7-4.1) g/dL Albumin/Globulin Ratio (1.0-2.8) TSH (0.47-4.68) uIU/mL Urine RBC None seen (0-5/HPF) Urine WBC 0-1/hpf (0-5/HPF) Ur Squamous Epith Cells 1-5 /hpf (0-5/HPF) Ur Transition Epith Cell 0-1/hpf (0-5/HPF) Urine Bacteria Few (2-10) H (None) Hyaline Casts 0-1/lpf (None) Urine Mucus 1+ H (Negative) Ur Culture Indicated? Cult not indicated Salicylates (<20) mg/dL U Opiates 300ng/mL cut Negative (Negative) Ur Oxycodone Screen Negative (Negative) Urine Methadone Screen Negative (Negative) Acetaminophen (10-30) ug/mL Ur Barbiturates Screen Negative (Negative) U Tricyclic Antidepress Positive H (Negative) Ur Phencyclidine Scrn Negative (Negative) Ur Amphetamines Screen Negative (Negative) U Methamphetamines Scrn Negative (Negative) Ur MDMA Scrn (Ecstasy) Negative (Negative) U Benzodiazepines Scrn Positive H (Negative) Urine Cocaine Screen Negative (Negative) U Marijuana (THC) Screen Negative (Negative) Ethyl Alcohol ( - 10) mg/dL 09/13/19 09/13/19 Range/Units 16:57 16:57 WBC (4.5-11.0) X10^3/uL RBC (4.0-5.2) X10^6/uL Hgb (12.0-16.0) g/dL Hct (36-46) % MCV (80-100) fL MCH (26-34) PG MCHC (30-36) % RDW (11.6-14.8) % Plt Count (150-400) X10^3/uL Neut % (Auto) (50-75) % Lymph % (Auto) (25-40) % [place] % (Auto) (3-14) % Eos % (Auto) (2-4) % Baso % (Auto) (0-2) % Neut # (Auto) (9465-1539) /uL Lymph # (Auto) (6425-8260) /uL [place] # (Auto) (0-900) /uL Eos # (Auto) (0-450) /uL Baso # (Auto) (0-100) /uL Sodium 141 (137-145) mmol/L Potassium 4.2 (3.4-5.1) mmol/L Chloride 106 (98-107) mmol/L Carbon Dioxide 28 (22-32) mmol/L BUN 12 (7-17) mg/dL Creatinine 0.90 (0.52-1.04) mg/dL Estimated GFR > 60.0 (>60) mL/min BUN/Creatinine Ratio 13.3 (6-22) Glucose 93 (70-100) mg/dL Calcium 9.2 (8.4-10.2) mg/dL Total Bilirubin 0.2 (0.2-1.3) mg/dL AST 23 (14-36) IU/L ALT 19 (<35) IU/L Alkaline Phosphatase 62 (38-126) U/L Total Protein 7.0 (6.3-8.2) g/dL Albumin 4.1 (3.5-5.0) g/dL Globulin 2.9 (1.7-4.1) g/dL Albumin/Globulin Ratio 1.4 (1.0-2.8) TSH 3.32 (0.47-4.68) uIU/mL Urine RBC (0-5/HPF) Urine WBC (0-5/HPF) Ur Squamous Epith Cells (0-5/HPF) Ur Transition Epith Cell (0-5/HPF) Urine Bacteria (None) Hyaline Casts (None) Urine Mucus (Negative) Ur Culture Indicated? Salicylates < 1.0 (<20) mg/dL U Opiates 300ng/mL cut (Negative) Ur Oxycodone Screen (Negative) Urine Methadone Screen (Negative) Acetaminophen < 10 L (10-30) ug/mL Ur Barbiturates Screen (Negative) U Tricyclic Antidepress (Negative) Ur Phencyclidine Scrn (Negative) Ur Amphetamines Screen (Negative) U Methamphetamines Scrn (Negative) Ur MDMA Scrn (Ecstasy) (Negative) U Benzodiazepines Scrn (Negative) Urine Cocaine Screen (Negative) U Marijuana (THC) Screen (Negative) Ethyl Alcohol < 10 ( - 10) mg/dL Point of Care Testing Test Results Negative Urine Dip Bedside Urine Glucose Negative Bedside Urine Bilirubin + 1 Bedside Urine Ketone +/- 5 Urine Specific [place] 1.030 Bedside Urine Occult Blood - Negative Bedside Urine pH 6.0 Bedside Urine Protein +/- 15 Bedside Urine Urobilinogen - Negative Bedside Urine Nitrite - Negative Bedside Urine Leukocytes - Negative Esterase MDM Narrative Medical decision making narrative: This is a 44-year-old female who presents to with suicidal ideation and would like to be evaluated and treated in inpatient facility voluntarily. Patient has history of suicidal attempts with overdosing with Ambien in the past. Patient has history of anxiety, rapid cycling bipolar type 1, depression. Patient has been in manic last 5 days and has been self medicating herself with hydroxyzine, alprazolam frequently to treat her symptoms with very limited improvement. When she woke up this morning she had urged to since this morning and she came in to ED voluntarily to get help. She reports had called [facility] in [facility] and was told they have bed availability. Patient is medically cleared. Patient had taken alprazolam, Flexeril, lamotrigine, hydroxyzine. Patient is not and urine dip test does not appears to be infected. Patient attempted to treat herself with as needed medication which has not been sufficient at this time and has ongoing suicidal ideation with holding with Tylenol which is readily available. Patient will be safe inpatient treatment for her symptoms. The patient was evaluated by fish house worker Mary Otero at bedside as well. [facility] at [facility] has been contacted and faxed all required documents for their review for transfer Dr. Roberto awares the plan for transfer to and care plan and the patient is signed out to Dr. Roberto. <Luis Manuel Roberto MD - Last Filed: 09/15/19 15:21> Lab Data Labs: Lab Results 09/13/19 09/13/19 09/13/19 Range/Units 16:45 16:45 16:57 WBC 5.4 (4.5-11.0) X10^3/uL RBC 5.22 H (4.0-5.2) X10^6/uL Hgb 12.3 (12.0-16.0) g/dL Hct 37.9 (36-46) % MCV 72.6 L (80-100) fL MCH 23.5 L (26-34) PG MCHC 32.3 (30-36) % RDW 15.0 H (11.6-14.8) % Plt Count 286 (150-400) X10^3/uL Neut % (Auto) 59.1 (50-75) % Lymph % (Auto) 28.8 (25-40) % [place] % (Auto) 7.8 (3-14) % Eos % (Auto) 3.8 (2-4) % Baso % (Auto) 0.5 (0-2) % Neut # (Auto) 3200 (1161-3853) /uL Lymph # (Auto) 1600 (8691-4690) /uL [place] # (Auto) 400 (0-900) /uL Eos # (Auto) 200 (0-450) /uL Baso # (Auto) 0 (0-100) /uL Sodium (137-145) mmol/L Potassium (3.4-5.1) mmol/L Chloride (98-107) mmol/L Carbon Dioxide (22-32) mmol/L BUN (7-17) mg/dL Creatinine (0.52-1.04) mg/dL Estimated GFR (>60) mL/min BUN/Creatinine Ratio (6-22) Glucose (70-100) mg/dL Calcium (8.4-10.2) mg/dL Total Bilirubin (0.2-1.3) mg/dL AST (14-36) IU/L ALT (<35) IU/L Alkaline Phosphatase (38-126) U/L Total Protein (6.3-8.2) g/dL Albumin (3.5-5.0) g/dL Globulin (1.7-4.1) g/dL Albumin/Globulin Ratio (1.0-2.8) TSH (0.47-4.68) uIU/mL Urine RBC None seen (0-5/HPF) Urine WBC 0-1/hpf (0-5/HPF) Ur Squamous Epith Cells 1-5 /hpf (0-5/HPF) Ur Transition Epith Cell 0-1/hpf (0-5/HPF) Urine Bacteria Few (2-10) H (None) Hyaline Casts 0-1/lpf (None) Urine Mucus 1+ H (Negative) Ur Culture Indicated? Cult not indicated Salicylates (<20) mg/dL U Opiates 300ng/mL cut Negative (Negative) Ur Oxycodone Screen Negative (Negative) Urine Methadone Screen Negative (Negative) Acetaminophen (10-30) ug/mL Ur Barbiturates Screen Negative (Negative) U Tricyclic Antidepress Positive H (Negative) Ur Phencyclidine Scrn Negative (Negative) Ur Amphetamines Screen Negative (Negative) U Methamphetamines Scrn Negative (Negative) Ur MDMA Scrn (Ecstasy) Negative (Negative) U Benzodiazepines Scrn Positive H (Negative) Urine Cocaine Screen Negative (Negative) U Marijuana (THC) Screen Negative (Negative) Ethyl Alcohol ( - 10) mg/dL 09/13/19 09/13/19 Range/Units 16:57 16:57 WBC (4.5-11.0) X10^3/uL RBC (4.0-5.2) X10^6/uL Hgb (12.0-16.0) g/dL Hct (36-46) % MCV (80-100) fL MCH (26-34) PG MCHC (30-36) % RDW (11.6-14.8) % Plt Count (150-400) X10^3/uL Neut % (Auto) (50-75) % Lymph % (Auto) (25-40) % [place] % (Auto) (3-14) % Eos % (Auto) (2-4) % Baso % (Auto) (0-2) % Neut # (Auto) (3334-7963) /uL Lymph # (Auto) (5403-6522) /uL [place] # (Auto) (0-900) /uL Eos # (Auto) (0-450) /uL Baso # (Auto) (0-100) /uL Sodium 141 (137-145) mmol/L Potassium 4.2 (3.4-5.1) mmol/L Chloride 106 (98-107) mmol/L Carbon Dioxide 28 (22-32) mmol/L BUN 12 (7-17) mg/dL Creatinine 0.90 (0.52-1.04) mg/dL Estimated GFR > 60.0 (>60) mL/min BUN/Creatinine Ratio 13.3 (6-22) Glucose 93 (70-100) mg/dL Calcium 9.2 (8.4-10.2) mg/dL Total Bilirubin 0.2 (0.2-1.3) mg/dL AST 23 (14-36) IU/L ALT 19 (<35) IU/L Alkaline Phosphatase 62 (38-126) U/L Total Protein 7.0 (6.3-8.2) g/dL Albumin 4.1 (3.5-5.0) g/dL Globulin 2.9 (1.7-4.1) g/dL Albumin/Globulin Ratio 1.4 (1.0-2.8) TSH 3.32 (0.47-4.68) uIU/mL Urine RBC (0-5/HPF) Urine WBC (0-5/HPF) Ur Squamous Epith Cells (0-5/HPF) Ur Transition Epith Cell (0-5/HPF) Urine Bacteria (None) Hyaline Casts (None) Urine Mucus (Negative) Ur Culture Indicated? Salicylates < 1.0 (<20) mg/dL U Opiates 300ng/mL cut (Negative) Ur Oxycodone Screen (Negative) Urine Methadone Screen (Negative) Acetaminophen < 10 L (10-30) ug/mL Ur Barbiturates Screen (Negative) U Tricyclic Antidepress (Negative) Ur Phencyclidine Scrn (Negative) Ur Amphetamines Screen (Negative) U Methamphetamines Scrn (Negative) Ur MDMA Scrn (Ecstasy) (Negative) U Benzodiazepines Scrn (Negative) Urine Cocaine Screen (Negative) U Marijuana (THC) Screen (Negative) Ethyl Alcohol < 10 ( - 10) mg/dL Point of Care Testing Test Results Negative Urine Dip Bedside Urine Glucose Negative Bedside Urine Bilirubin + 1 Bedside Urine Ketone +/- 5 Urine Specific [place] 1.030 Bedside Urine Occult Blood - Negative Bedside Urine pH 6.0 Bedside Urine Protein +/- 15 Bedside Urine Urobilinogen - Negative Bedside Urine Nitrite - Negative Bedside Urine Leukocytes - Negative Esterase Discharge Plan Departure Patient Disposition: Xfer Psychiatric Hosp Clinical Impression: Suicidal ideation, Bipolar I disorder with rapid cycling Depression Qualifiers: Depression Type: unspecified Qualified Code(s): F32.9 - Major depressive disorder, single episode, unspecified Discharge Date/Time: 09/13/19 23:30 Referrals: Avis Motta MD [Primary Care Provider] - ED Sign-out <ARLETH Major - Last Filed: 09/13/19 21:43> Sign Out Provider Sign Out Attestation: Reviewed the patient's plan of care for transfer to [facility] with Dr. Roberto and currently is waiting to hear back from the [facility] at [facility] for an acceptance and sure your back from day facility by 10:00 p.m..
[2019-09-13 17:25] LABS: UR Morphine/Opiate cutoff 300 Negative (Negative); Ur Creatinine Normal (Normal); Ur Specific Gravity Normal (Normal); Urine Amphetamines Negative (Negative); Urine Barbiturates Negative (Negative); Urine Benzodiazepines Positive (Negative); Urine Cocaine Negative (Negative); Urine MDMA Negative (Negative); Urine Methadone Negative (Negative); Urine Methamphetamines Negative (Negative); Urine Oxycodone Negative (Negative); Urine Phencyclidine Negative (Negative); Urine Tetrahydrocannabinol Negative (Negative); Urine Tricyclic Antidepressant Positive (Negative); Urine pH Normal (Normal)
[2019-09-13 17:37] LABS: RBC Urine None Seen (0-5/HPF)
[2019-09-13 17:54] LABS: Thyroid Stimulating Hormone 3.32 uIU/mL (0.47-4.68)
[2019-09-13 18:03] LABS: Bacteria Urine Few (2-10); Squamous Epithelial Cell Urine 1-5 /HPF (0-5/HPF); Transitional Epi Cells Urine 0-1/HPF (0-5/HPF); WBC Urine 0-1/HPF (0-5/HPF)
[2019-09-13 18:04] LABS: Culture Indicated Urine Cult Not Indicated; Hyaline Casts Urine 0-1/LPF; Mucus Urine 1+ (Negative)
[2019-09-13 18:32] VITALS: BP 112/70; PULSE 79; RESP 16; TEMP 36.4; O2SAT 99
--- NOTE | 2019-09-13 19:15 | PC.NURSE ---
was not able to chart every 15 minute because was in patients room checking, helping patients or taking vital sign-patient is calm and coorperative
--- NOTE | 2019-09-13 19:24 | PC.NURSE ---
received handoff from jesus, patient resting on stretcher with eyes closed.
--- NOTE | 2019-09-13 20:31 | CM.SWNOTE ---
Addendum entered by Mary Otero R.N. 09/13/19 20:48: CM/RN sent clinicals to [facility] at [phone] and they are reviewing for possible acceptance. VENUE COORDINATOR note left and ED board updated. Mary Otero RN Original Note: CM/environmental services associate note: EMR Reviewed: Patient is a 44 yr old female who presented to the ED with SI. Patient was tired and soft spoken when arriving here at the ED. Patient has been sleeping during ED visit and was alert and oriented x3 at time of CM/RN Visit. Patients behavior has been appropriate and pleasant. Plan: to find Inpatient psychiatric treatment for patient. Mary Otero RN VENUE COORDINATOR - Fence Maker Assessment VENUE COORDINATOR - Fence Maker Assessment Start: 09/13/19 20:20 Freq: Status: Active Protocol: Document 09/13/19 20:20 HS (Rec: 09/13/19 20:31 HS [id number]) VENUE COORDINATOR/Fence Maker Assessment Time Spent with Patient Start date 09/13/19 Visit Start Time 19:20 End date 09/13/19 Visit End Time 20:55 Total time Care Management spent on 120 MIN patient visit-in minutes Mental Health Screening Include Onset, Duration, Intensity Presenting Problem Patient came into the ED with SI for the last three days. Patient has been taking her Zanax 2mg every 4 to 6 hours for 3 days trying to sleep through SI feelings. patient decided today she wasn't able to continue and was planning to take a bottle full of Tylenol but came into the ED instead. Precipitating Event(s) Patient stated she was feeling manic for two days then went into a deep depression and has been having suicidal thoughts for three days now. 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 Psych. Hx Mental Health and Chemical patient has HX of bipolar Dependency disorder, depression, and borderline personality disorder. Patient has been sober for the last two years but has struggled for the last 12 with alcoholism Psychiatric Hospitalizations (date(s)/ Patient was previously location) hospitalized at [facility] in May 2017 and Jun 2018 Support System(s) Patient has two daughters one 15 and one 21 and they all currently live with patients mother Mental Status Orientation (Person/Place/Time) patient was alert and orientedx3 during Cm/Rn visit Affect Patients affect was sad Thought Content - Specify/Describe no hallucinations or delusions Obsessions, Delusions, Hallucinations Thought Processes (Rqbngeo-Btayalqu-Oxbl patient was logical and Kbitixje-Lhxmunwc-Abvectotrj- coherent Pkbfldnllmitui-Fxcshlu-Hmvhljsqgonq- Thought Blocking) Speech (Ganrsx-Fcxb-Izdwdbe-Rapid-Soft- normal Loud-Pressured) Motor (Uiwacr-Clhsrgoec-Anko-Other) normal Insight (Present-Partially Present- present Impaired) Impulse Control (Adequate-Impaired) adequate Memory (Wtvwirzch-Lghsnq-Gryujc, Intact Impaired-Intact) Concentration (Intact-Impaired) intact but sleepy Attention (Intact-Impaired) intact but patient seemed sleepy and would close her eyes frequently Behavior (Appropriate-Inappropriate) appropriate Risk Assessment Suicidal Ideation (Plan) Yes: take a whole bottle of Tylenol Homicidal Ideation (Plan) No Intervention Intervention Patient is requesting inpatient psychiatric treatment for her SI. CM/RN will attempt to find placement for patient.
--- NOTE | 2019-09-13 20:36 | PC.NURSE ---
patient denies needs at this time, resting on stretcher with eyes closed. States her mom is bringing her [employer]cd[employer] soon.
--- NOTE | 2019-09-13 23:12 | PC.NURSE ---
patient is very pleasant, calm, cooperative
[2019-09-13 23:29] VITALS: BP 121/68; PULSE 78; RESP 15; TEMP 36.3; O2SAT 100
--- NOTE | 2019-09-14 00:57 | PC.NURSE ---
report given to Mohan at [facility].
== END 2019-09-13 23:30 ==
PROVIDERS: Emergency Medicine; Nurse Practitioner Family; Emergency Provider Emergency Medicine; PCP Family Medicine
DX: R45.851 Suicidal ideations (principal); F32.9 Major depressive disorder, single episode, unspecified
CPT/HCPCS: 36415; 80053; 80305; 80320; 80329; 81003; 81015; 81025; 84443; 85025; 99284; G0480

== ENCOUNTER 2020-02-26 01:01 | Observation (INO) | payer OTHER, MEDICAID, SELFPAY ==
[2020-02-26] VITALS (25 sets, daily range): BP systolic 98–142; BP diastolic 52–83; PULSE 62–89; RESP 9–26; TEMP 36–37; O2SAT 83–100; BMI 38.7
--- NOTE | 2020-02-26 | PATH_ITS ---
[facility] Accession Number: [id number] . 01 Material submitted: . appendix - APPENDIX . 01 Clinical history: . UTERINE PAIN . 02 Diagnosis: Appendix, Appendectomy: Appendix with diverticula and fibrous obliteration of the tip. No significant active inflammation identified. No evidence of neoplasm. MRV 03/01/2020 1038 Local . 02 Electronically signed: . Yefri Edwards MD, PhD, Pathologist NPI- [id number] . 01 Gross description: . Specimen A is received in formalin, labeled with patient identification and appendix. It consists of an intact vermiform appendix measuring 5.3 cm in length and 1.2 cm in diameter. The yellow-alexander and lobulated mesoappendiceal adipose tissue is 3.5 x 2.0 x 1.4 cm. The serosa is pink-alexander and dull. The staple line at the proximal margin is removed and the tissue underneath is inked blue. Sectioning reveals pinpoint and patent lumen which is lined by yellow-alexander and grossly unremarkable mucosa. The wall thickness is up to 0.3 cm. Tandem Mill [employer] sections are submitted in three cassettes. . Summary of sections: A1 - proximal margin, shaved, on piece. A2 - footwear sales representative sections of appendix, three pieces. A3 - the entire bisected appendiceal tip, two pieces. ([id number]) /MRV 02/29/2020 1106 Local . 02 Pathologist provided ICD-10: R10.9 . 02 CPT . 626383 Performed at: 01 [facility] [address] [facility], [place], [place] [id number] MD Nura Machado MD Phone: [phone] Performed at: 02 [facility] [address] [place] [id number] MD Avis Ricks MD Phone: [phone]
--- NOTE | 2020-02-26 01:04 | ED_ITS ---
HPI - Female Genitourinary General Chief complaint: Abdominal Pain Stated complaint: UTERINE PAIN Time Seen by Provider: 02/26/20 01:03 Source: patient and family Mode of arrival: Ambulatory Limitations: no limitations History of Present Illness HPI Narrative: 44F former smoker presents with family and the chief complaint of severe RLQ pain over the course of the evening. It is gradually becoming more intense but still is a bit episodic in nature and presents without obvious provocation or palliation. On occasion it does radiate to her back. She does state that sometimes when she moves or presses her pain intensifies. She last ate at about 10 or 11 last night. She has been nauseated but denies any vomit ing. She denies any dysuria, frequency or urgency. She denies fever or chills. She denies any vaginal bleeding or discharge. MD Complaint: pelvic pain Onset (ago): hour(s) Location: RLQ Female Urogenital Radiation: R Flank Severity: moderate Quality: Aching and Cramping Duration: intermittent Relieving factors: none Exacerbating factors: movement Patient : No Related Data Home Medications Medication Instructions Recorded Confirmed alprazolam 1 - 2 mg PO BEDTIME #0 05/05/17 09/13/19 albuterol sulfate 2 puff INHALATION Q6H PRN 06/08/18 09/13/19 vrayalar PO 12/18/18 02/18/19 ondansetron HCl [Zofran] 8 mg PO TID PRN 02/01/19 02/18/19 cyclobenzaprine 10 mg PO BID 09/13/19 09/13/19 hydroxyzine pamoate 50 mg PO BEDTIME PRN 09/13/19 09/13/19 lamotrigine 200 mg PO DAILY 09/13/19 09/13/19 omeprazole 20 mg PO DAILY 09/13/19 09/13/19 Allergies Allergy/AdvReac Type Severity Reaction Status Date / Time Sulfa (Sulfonamide Allergy Intermediate RASH Verified 02/18/19 07:52 Antibiotics) [SULFA (SULFONAMIDE ANTIBIOTICS)] Review of Systems Constitutional Constitutional: Denies chills, Denies fatigue, Denies fever(s), Denies frequent falls, Denies lethargy and Denies weakness Eyes Eyes: Denies change in vision, Denies eye discharge, Denies irritation and De nies loss of vision ENT Ears, Nose, Mouth, and Throat: Denies change in voice, Denies dizziness, Denies neck pain, Denies sore throat and Denies throat swelling Cardiovascular Cardiovascular: Denies chest pain, Denies irregular heart rhythm, Denies lightheadedness, Denies palpitations, Denies dyspnea, Denies dyspnea on exertion and Denies orthopnea Respiratory Respiratory: Denies cough, Denies dyspnea, Denies dyspnea on exertion and Denies wheezing Gastrointestinal Gastrointestinal: Reports abdominal pain, Denies change in bowel habits, Denies diarrhea, Reports nausea and Denies vomiting Musculoskeletal Musculoskeletal: Denies neck pain and Denies numbness Integumentary/Breasts Skin/Breast: Denies pruritus, Denies erythema, Denies rash and Denies wounds Neurologic Neurologic: Denies behavioral changes, Denies confusion, Denies dizziness, Denies frequent falls, Denies loss of vision, Denies numbness and Denies weakne ss Psychiatric Psychiatric: Denies anxiety, Denies behavioral changes, Denies confusion, Denies depression, Denies homicidal ideation and Denies suicidal ideation Endocrine Endocrine: Denies fatigue, Denies flushing and Denies palpitations Hematologic/Lymphatic Hematologic/Lymphatic: Denies easy bruising Allergic/Immunologic Allergic/Immunologic: Denies urticaria, Denies throat swelling and Denies wheezing Patient History Medical History Anxiety (Acute) Bipolar disorder with depression (Chronic) Borderline personality disorder (Acute) Degenerative disc disease, cervical (Chronic) History of alcoholism (Acute) Menorrhagia (Acute) Migraine headache with aura (Chronic) Suicide attempt (Acute ~2017) Suicide ideation (Acute ~06/2018) Surgical History H/O breast augmentation (Chronic) H/O section (Inactive) H/O tubal ligation (Inactive) History of tonsillectomy (Inactive) Exam Narrative Exam Narrative: GENERAL: [44] year old patient appears stated age. Well- nourished, well-developed patient, in moderate distress. Rubbing her lower abdomen HEAD: Atraumatic. Normocephalic. EYES: Pupils equal round and reactive. Extraocular motions intact. No scleral icterus. No injection or drainage. ENT: Nose without bleeding, purulent drainage. Throat without erythema, tonsillar hypertrophy or exudate. Airway patent. NECK: Trachea midline. Non tender CARDIOVASCULAR: Regular rate and rhythm without murmurs, gallops, or rubs. RESPIRATORY: Clear to auscultation. Breath sounds equal bilaterally. No wheezes, rales, or rhonchi. GASTROINTESTINAL: Abdomen soft, tender in the right lower quadrant, nondistended. Negative psoas or Rovsing's EXTREMITIES: No edema or joint tenderness. BACK: Nontender without deformity or crepitance. No flank tenderness. NEURO: AOx3. SKIN: No rash or erythema of visible areas Initial Vital Signs Initial Vital Signs: Vital Signs Temperature 98.2 F 02/26/20 01:10 Pulse Rate 73 02/26/20 01:10 Respiratory Rate 16 02/26/20 01:10 Blood Pressure 135/82 02/26/20 01:10 Pulse Oximetry 100 02/26/20 01:10 Course Orders Ordered: ED Orders 02/26/20 01:40 Complete Blood Count AUTO DIFF Stat Comprehensive Metabolic Panel Stat Lipase Stat 02/26/20 02:29 CT abdomen pelvis w con Stat Sodium Chloride (Normal Saline 0.9%) 1,000 mls @ 150 mls/hr IV CONT NGUYEN Last Admin: 02/26/20 02:09 Dose: 150 mls/hr Documented by: MECHE Piperacillin/Tazobactam/Dextrose (Zosyn) 3.375 gm in 50 mls @ 100 mls/hr IV NOW ONE Stop: 02/26/20 04:41 Last Admin: 02/26/20 04:23 Dose: 100 mls/hr Documented by: FALGUNI Discontinued Medications Hydromorphone HCl (Dilaudid) 1 mg IV NOW ONE Stop: 02/26/20 02:35 Last Admin: 02/26/20 04:23 Dose: 1 mg Documented by: FALGUNI Ketorolac Tromethamine (Toradol) 15 mg IV NOW ONE Stop: 02/26/20 01:28 Last Admin: 02/26/20 02:10 Dose: 15 mg Documented by: MECHE Ondansetron HCl (Zofran) 4 mg IV NOW ONE Stop: 02/26/20 01:28 Last Admin: 02/26/20 02:10 Dose: 4 mg Documented by: MECHE Consultations Consultation #1: call to Dr. Shaikh. Happy to accept. Requests NPO. Emily. Will take to OR later this morning. Vital Signs Vital signs: Vital Signs - 8 hr 02/26/20 01:10 02/26/20 01:38 02/26/20 02:00 Temperature 98.2 F Pulse Rate 73 71 70 Respiratory Rate 16 Blood Pressure 135/82 127/64 131/63 Pulse Oximetry 100 98 100 02/26/20 02:30 02/26/20 02:50 02/26/20 03:00 Temperature Pulse Rate 65 77 76 Respiratory Rate 21 17 17 Blood Pressure 121/66 120/58 L 121/56 L Pulse Oximetry 100 99 99 02/26/20 03:30 02/26/20 04:00 Temperature Pulse Rate 75 74 Respiratory Rate 15 15 Blood Pressure 111/56 L 113/52 L Pulse Oximetry 97 97 MDM - Female Genitourinary Lab Data Result diagrams: 02/26/20 01:40 02/26/20 01:40 Labs: Lab Results 02/26/20 02/26/20 Range/Units 01:40 01:40 WBC 8.2 (4.5-11.0) X10^3/uL RBC 5.33 H (4.0-5.2) X10^6/uL Hgb 12.3 (12.0-16.0) g/dL Hct 38.8 (36-46) % MCV 72.8 L (80-100) fL MCH 23.1 L (26-34) PG MCHC 31.7 (30-36) % RDW 14.5 (11.6-14.8) % Plt Count 298 (150-400) X10^3/uL Neut % (Auto) 59.4 (50-75) % Lymph % (Auto) 30.5 (25-40) % [place] % (Auto) 7.7 (3-14) % Eos % (Auto) 2.1 (2-4) % Baso % (Auto) 0.3 (0-2) % Neut # (Auto) 4900 (1527-0265) /uL Lymph # (Auto) 2500 (6858-3456) /uL [place] # (Auto) 600 (0-900) /uL Eos # (Auto) 200 (0-450) /uL Baso # (Auto) 0 (0-100) /uL Sodium 138 (137-145) mmol/L Potassium 3.7 (3.4-5.1) mmol/L Chloride 105 (98-107) mmol/L Carbon Dioxide 28 (22-32) mmol/L BUN 9 (7-17) mg/dL Creatinine 0.79 (0.52-1.04) mg/dL Estimated GFR > 60.0 (>60) mL/min BUN/Creatinine Ratio 11.4 (6-22) Glucose 101 H (70-100) mg/dL Calcium 9.3 (8.4-10.2) mg/dL Total Bilirubin 0.3 (0.2-1.3) mg/dL AST 26 (14-36) IU/L ALT 21 (<35) IU/L Alkaline Phosphatase 61 (38-126) U/L Total Protein 7.0 (6.3-8.2) g/dL Albumin 4.2 (3.5-5.0) g/dL Globulin 2.8 (1.7-4.1) g/dL Albumin/Globulin Ratio 1.5 (1.0-2.8) Lipase 127 (23-300) U/L Urine Dip Bedside Urine Glucose Negative Bedside Urine Ketone - Negative Urine Specific [place] 1.025 Bedside Urine Occult Blood - Negative Bedside Urine Protein +/- 15 Bedside Urine Urobilinogen - Negative Bedside Urine Leukocytes - Negative Esterase Imaging Data CT scan - abdomen/pelvis: Attestation: I personally reviewed and interpreted this imaging study as follows: Radiologist's Impression: Mild enlargement of appendix at 9 mm. NO perforation or abscess Discharge Plan Departure Prescriptions: No Action alprazolam 1 MG tablet 1 - 2 mg PO BEDTIME Qty: 0 RF: 0 vrayalar PO RF: 0 albuterol sulfate 90 mcg/actuation HFA aerosol inhaler 2 puff Inhalation Q6H PRN (Reason: Wheezing) RF: 0 ondansetron HCl [Zofran] 8 mg Tablet 8 mg PO TID PRN (Reason: Headache) RF: 0 cyclobenzaprine 10 mg tablet 10 mg PO BID RF: 0 lamotrigine 200 mg tablet 200 mg PO DAILY RF: 0 hydroxyzine pamoate 50 mg capsule 50 mg PO BEDTIME PRN (Reason: as directed) RF: 0 omeprazole 20 mg capsule,delayed release(DR/EC) 20 mg PO DAILY RF: 0 Admit Date/Time: 02/26/20 04:39 Admit Provider: Aleksander Shaikh
[2020-02-26 01:50] LABS: Add Manual Diff / Slide Review NO; Basophils Absolute Auto 0 /uL (0-100); Basophils Percent Auto 0.3 % (0-2); Eosinophils Absolute Auto 200 /uL (0-450); Eosinophils Percent Auto 2.1 % (2-4); Hematocrit 38.8 % (36-46); Hemoglobin 12.3 g/dL (12.0-16.0); Lymphocytes Absolute Auto 2500 /uL (1100-4500); Lymphocytes Percent Auto 30.5 % (25-40); Mean Corpuscular HGB Conc 31.7 % (30-36); Mean Corpuscular Hemoglobin 23.1 PG (26-34); Mean Corpuscular Volume 72.8 fL (80-100); Monocytes Absolute Auto 600 /uL (0-900); Monocytes Percent Auto 7.7 % (3-14); Neutrophils Absolute Auto 4900 /uL (1500-7000); Neutrophils Percent Auto 59.4 % (50-75); Platelet Count 298 X10^3/uL (150-400); Red Blood Cell Count 5.33 X10^6/uL (4.0-5.2); Red Cell Distribution Width 14.5 % (11.6-14.8); White Blood Cell Count 8.2 X10^3/uL (4.5-11.0)
[2020-02-26 01:56] LABS: Alanine Aminotransferase 21 IU/L (<35); Albumin 4.2 g/dL (3.5-5.0); Albumin Globulin Ratio 1.5 (1.0-2.8); Alkaline Phosphatase 61 U/L (38-126); Aspartate Aminotransferase 26 IU/L (14-36); BUN Creatinine Ratio 11.4 (6-22); Bilirubin Total 0.3 mg/dL (0.2-1.3); Blood Urea Nitrogen 9 mg/dL (7-17); Calcium 9.3 mg/dL (8.4-10.2); Carbon Dioxide 28 mmol/L (22-32); Chloride 105 mmol/L (98-107); Estimated Glomerular Filt Rate > 60.0 mL/min (>60); Globulin 2.8 g/dL (1.7-4.1); Glucose 101 mg/dL (70-100); HEMOLYSIS < 15 (0-50); Lipase 127 U/L (23-300); Potassium 3.7 mmol/L (3.4-5.1); Sodium 138 mmol/L (137-145)
[2020-02-26] MEDS: SODIUM CHLORIDE 0.9% 1,000 ML 150 ML IV ×2 (02:09→07:52)
[2020-02-26] MEDS: KETOROLAC 60 MG/2 ML VIAL 15 MG IV (02:10)
[2020-02-26] MEDS: ONDANSETRON 4 MG/2 ML INJ IV (02:10)
--- NOTE | 2020-02-26 02:29 | DI.CT.S_ITS ---
PROCEDURE: CT ABDOMEN PELVIS W CON INDICATIONS: severe lower abdominal pain TECHNIQUE: After the administration of intravenous contrast, 5 mm thick sections acquired from the diaphragm to the symphysis. 5 mm coronal and sagittal reformats were acquired. For radiation dose reduction, the following was used: automated exposure control, adjustment of mA and/or kV according to patient size. COMPARISON: None. FINDINGS: Image quality: Excellent. ABDOMEN: Lung bases: Lung bases are clear. Heart size is normal. Solid organs: Liver is normal in size and enhancement. Gallbladder is contracted but otherwise grossly unremarkable . Biliary system is non dilated. Pancreas enhances normally. Spleen is normal in size and enhancement. No adrenal nodules. Kidneys demonstrate normal size and enhancement, without hydronephrosis. Peritoneum and bowel: Appendix is mildly distended at 8 mm without evidence of surrounding fat stranding. Bowel loops demonstrate otherwise normal wall thickness and caliber. No free fluid or air. Nodes and vessels: No retroperitoneal or mesenteric adenopathy by size criteria. Aorta and inferior vena cava are normal in size. Miscellaneous: No ventral hernias. PELVIS: Genitourinary: Bladder wall thickness is normal. Miscellaneous: No inguinal hernias or adenopathy. Bones: No suspicious bony lesions. No vertebral body compression fractures. IMPRESSION: 1. Mildly prominent appendix, which could indicate a normal variant. Close clinical follow-up, with repeat imaging if clinically warranted is recommended to exclude developing appendicitis. 2. Otherwise negative examination. 3. Concordant with preliminary interpretation. Dictated by: Cruz Hamlin M.D. on 02/26/2020 at 7:15 Approved by: Cruz Hamlin M.D. on 02/26/2020 at 7:18
--- NOTE | 2020-02-26 03:05 | PC.NURSE ---
Does not want additional pain medication at this time.
[2020-02-26] MEDS: PIPERACILLIN-TAZO 3.375 GM/50 ML FROZ.PIGGY IV ×2 (04:23→09:00)
[2020-02-26] MEDS: HYDROMORPHONE 1 MG INJ IV (04:23)
[2020-02-26 05:57] LABS: COVID19 -Nasal RAPID Negative (Negative)
--- NOTE | 2020-02-26 07:34 | PC.NURSE ---
Pt arrived to room 222 from ED in stable condition. A&Ox4, VSS, oriented to room/call light/bed controls. No-slip socks in place. Admin complete - med req not done. No c/o of pain at this time. Surgical consent signed, witnessed by this RN.
--- NOTE | 2020-02-26 07:47 | P.HP_ITS ---
History of Present Illness History of Present Illness Date Patient Seen: 02/26/20 Time Patient Seen: 07:47 Chief complaint: UTERINE PAIN Narrative: 44-year-old white female patient developed generalized abdominal pain with nausea last night the pain migrated to the right lower quadrant of the abdomen the patient came to the emergency department. She has a normal white count she had an abdominal pelvic CT scan which is reported to show acute uncomplicated appendicitis. Patient has no prior history of similar pain. Her significant medical history is that of bipolar disorder for which she takes numerous psychiatric drugs. Patient History Medical History Anxiety (Acute) Bipolar disorder with depression (Chronic) Borderline personality disorder (Acute) Degenerative disc disease, cervical (Chronic) History of alcoholism (Acute) Menorrhagia (Acute) Migraine headache with aura (Chronic) Suicide attempt (Acute ~2016) Suicide ideation (Acute ~06/2018) Surgical History H/O breast augmentation (Chronic) H/O section (Inactive) H/O tubal ligation (Inactive) History of tonsillectomy (Inactive) Family & Social History Social History: household members family Safety & Behavioral: Feels Safe in Current Yes Environment Been Physically Hurt or No Threatened By a Person Suicidal Ideation Description None Suicide Plan Description No Plan Tobacco & Substance use: Smoking Status Former smoker alcohol intake former Substance Use Type does not use Meds Home Medications and Allergies Home Medications Medication Instructions Recorded Confirmed Type alprazolam 1 mg PO BEDTIME #0 05/05/17 02/26/20 History albuterol sulfate 2 puff INHALATION Q6H PRN 06/08/18 02/26/20 History ondansetron HCl [Zofran] 8 mg PO TID PRN 02/01/19 02/26/20 History cyclobenzaprine 10 mg PO BID 09/13/19 02/26/20 History hydroxyzine pamoate 50 mg PO BEDTIME PRN 09/13/19 02/26/20 History lamotrigine 200 mg PO DAILY 09/13/19 02/26/20 History omeprazole 20 mg PO DAILY 09/13/19 02/26/20 History olanzapine [Zyprexa] 2.5 mg PO BEDTIME 02/26/20 02/26/20 History Allergies Allergy/AdvReac Type Severity Reaction Status Date / Time Sulfa (Sulfonamide Allergy Intermediate RASH Verified 02/18/19 07:52 Antibiotics) [SULFA (SULFONAMIDE ANTIBIOTICS)] Review of Systems Review of Systems ROS: Yes All systems reviewed with the patient and are negative except as otherwise documented Exam Vital Signs (past 8 hours): - 02/26/20 01:10 02/26/20 01:38 02/26/20 02:00 Temperature 98.2 F Pulse Rate 73 71 70 Respiratory Rate 16 Blood Pressure 135/82 127/64 131/63 Pulse Oximetry 100 98 100 02/26/20 02:30 02/26/20 02:50 02/26/20 03:00 Temperature Pulse Rate 65 77 76 Respiratory Rate 21 17 17 Blood Pressure 121/66 120/58 L 121/56 L Pulse Oximetry 100 99 99 02/26/20 03:30 02/26/20 04:00 02/26/20 04:32 Temperature Pulse Rate 75 74 77 Respiratory Rate 15 15 16 Blood Pressure 111/56 L 113/52 L 110/64 Pulse Oximetry 97 97 97 02/26/20 05:27 Temperature 96.9 F L Pulse Rate Respiratory Rate Blood Pressure Pulse Oximetry Oxygen Delivery Method Room Air Narrative Exam Narrative: Patient is alert and oriented complaining of moderate right lower quadrant abdominal pain she is afebrile normal stable vital signs Lungs are clear with no rales or wheezes Heart regular rhythm no murmur Abdomen generally soft with point tenderness in the right lower quadrant over McBurney's point. There is mild guarding. There is no mass palpated. Pelvic deferred at this time. Extremities are normal. Neurologic intact. Objective Labs Result Diagrams: 02/26/20 01:40 02/26/20 01:40 Labs: Laboratory Results - last 24 hr 02/26/20 02/26/20 02/26/20 01:40 01:40 04:25 WBC 8.2 RBC 5.33 H Hgb 12.3 Hct 38.8 MCV 72.8 L MCH 23.1 L MCHC 31.7 RDW 14.5 Plt Count 298 Neut % (Auto) 59.4 Lymph % (Auto) 30.5 [place] % (Auto) 7.7 Eos % (Auto) 2.1 Baso % (Auto) 0.3 Neut # (Auto) 4900 Lymph # (Auto) 2500 [place] # (Auto) 600 Eos # (Auto) 200 Baso # (Auto) 0 Sodium 138 Potassium 3.7 Chloride 105 Carbon Dioxide 28 BUN 9 Creatinine 0.79 Estimated GFR > 60.0 BUN/Creatinine Ratio 11.4 Glucose 101 H Calcium 9.3 Total Bilirubin 0.3 AST 26 ALT 21 Alkaline Phosphatase 61 Total Protein 7.0 Albumin 4.2 Globulin 2.8 Albumin/Globulin Ratio 1.5 Lipase 127 COVID-19 PCR Negative Assessment & Plan Assessment & Plan narrative: Patient with clinical and radiographic evidence of acute uncomplicated appendicitis. She has received intravenous Zosyn and IV fluids. She is morbidly obese with a BMI of 39. Therefore her appendectomy will be done laparoscopically. I explained the patient that she may require open surgery if were not able to remove the appendix with the scope. She understands and agrees with plan. We will operate on this patient this morning. Quality VTE Deep Vein Thrombosis/Pulmonary Embolism Present on Admission: No
[2020-02-26] MEDS: SODIUM CHLORIDE 0.9% 1,000 ML 100 ML IV (07:53)
[2020-02-26] MEDS: LACTATED RINGERS 1,000 ML 42 ML IV (08:31)
--- NOTE | 2020-02-26 09:13 | SUR.OPER ---
Supine on padded OR bed, head on pillow, arms secured on padded arm boards at <90 degrees abduction, legs uncrossed, safety belt at thigh, tape over blanket over lower legs.
[2020-02-26] MEDS: BUPIVACAINE 0.5% W/ EPI (PF) 30 ML VIAL INJ (09:24)
--- NOTE | 2020-02-26 09:46 | P.OP_ITS ---
Operative Date/Time/Diagnoses Date of procedure: 02/26/20 Time of procedure: 09:46 Pre-op diagnosis: Acute uncomplicated appendicitis Post-op diagnosis: same Procedure & Clinicians Procedure: Laparoscopic appendectomy Same procedure as scheduled: Yes Indications: Acute uncomplicated appendicitis Surgeon: Aleksander Shaikh Click Yes if Unassisted: Yes Anesthesia Type: General Operative Notes Findings: Patient had early onset acute appendicitis with no abscess Closure Type: primary Specimen(s): other (Appendix) Estimated Blood Loss (mL): 50 Blood products transfused: none Procedure in detail: The patient was properly identified during surgical pause s he was given a general endotracheal anesthetic and prepped and draped in a sterile fashion exposure of the mid abdomen. 5 mm incision was made above and to the right of the umbilicus and an Optiview port was placed into the peritoneal cavity under direct vision. There was no visceral injury. Two additional ports were placed in the left lower abdomen under direct vision. One was a 5 mm the other was an 11 mm. Patient was rotated to the left and placed in Trendelenburg position the cecum was identified and rotated cephalad. The appendix was identified and grasped. It was acutely inflamed. There was no abscess. A window was made between the base of the appendix and the cecum. Using of blue load stapling device Endo Path the base the appendix was stapled shut and divided away from the cecum. There was no spillage of bowel content and no leak. Further dissection then elevated the mesoappendix was was closed with an arterial staple load. The appendix was thus freed up and removed in an Endo-Catch bag. The operative site was irrigated with a L of sterile saline. There was no evidence of staple line leak at the cecum and there was no bleeding from the mesoappendix. The trocars removed under direct vision and there was no bleeding. The skin was stapled sterile dressings applied procedures very well tolerated. Complications: none Post-operative Condition: stable Disposition: PACU
[2020-02-26] MEDS: fentaNYL 100 MCG/2 ML INJ IV (09:58)
[2020-02-26] MEDS: LORazepam 2 MG/ML INJ 0.25 MG IV ×2 (09:59→10:08)
--- NOTE | 2020-02-26 10:40 | SUR.PHASEI ---
pt transferred to acute care floor in stable condition. pt mother at bedside upon arrival to room. bedside report given to ASHLEY Cook upon arrival to room. Transferred care of pt in stable condition, vss to ASHLEY Cook at that time.
[2020-02-26] MEDS: KETOROLAC 30 MG/ML VIAL IV ×2 (11:37→18:04)
[2020-02-26] MEDS: DEXTROSE 5%-0.45% NS 1,000 ML 84 ML IV (11:38)
--- NOTE | 2020-02-26 11:52 | PC.NURSE ---
Pt back to room 222 after lap appy. Pt denies pain, nausea or shortness of breath. Pt states she is feeling well and hoping to go home this afternoon.
[2020-02-26] MEDS: OXYCODONE/ACETAMINOPHEN 5/325 TABLET 1 TAB PO (13:10)
--- NOTE | 2020-02-26 13:27 | CM.DANOTE ---
Discharge Planning/Care Management DCP: assessment: case received, EMR reviewed. Discussed in Team Rounds. Pt is a 44 year old femae who admitted early this mornin to care of [facility] team: Dr. Shaikh. Payer: [facility]/Medicaid PCP: listed as Avis Motta. CT showed evidence of acute appendicitis and pt was taken later in the morning to surgery: Laproscopic appendectomy. Pt does carry diagnoses of obesity and bipolar disorder/on meds for same. A check in shows that she has now returned to her room from PACU. Will plan to check in tomorrow morning and follow up for any d/c needs that might arise. CM Discharge Assessment Start: 02/26/20 13:26 Freq: Status: Active Protocol: Document 02/26/20 13:26 ITV (Rec: 02/26/20 13:27 ITV [id number]) Discharge Planning Assessment Advance Directives? No Advance Directives on File No History Provided By Medical Record Household Members family Is patient alert and oriented? Yes Review Status In Process
--- NOTE | 2020-02-26 18:44 | P.DS_ITS ---
History of Present Illness History of Present Illness Chief complaint: UTERINE PAIN Narrative: 44-year-old white female patient developed generalized abdominal pain with nausea last night the pain migrated to the right lower quadrant of the abdomen the patient came to the emergency department. She has a normal white count she had an abdominal pelvic CT scan which is reported to show acute uncomplicated appendicitis. Patient has no prior history of similar pain. Her significant medical history is that of bipolar disorder for which she takes numerous psychiatric drugs. Discharge Providers Provider Date of admission: 02/26/20 04:39 Discharge Date: 02/26/20 Primary care physician: Avis Motta MD Discharge provider: Aleksander Shaikh MD Summary Hospital Course Discharge Diagnosis: Acute uncomplicated appendicitis Hospital Course: Patient came in early this morning around 4:00 a.m. I received preoperative antibiotic therapy with IV fluids. Was promptly taken to the operating room and underwent a laparoscopic appendectomy. This afternoon she is tolerating a normal diet with no nausea or vomiting. She is passing flatus. She has minimal pain and wants to go home Status at Discharge Cognitive/behavioral status at discharge: oriented Functional status at discharge: independent ambulation Overall status at discharge: patient is back to baseline Time Spent with Patient Time spent: Less than 30 minutes Exam Vital Signs (past 8 hours): - 02/26/20 11:07 02/26/20 11:37 02/26/20 12:37 Temperature 97.1 F L 96.8 F L 97.4 F L Pulse Rate 86 73 70 Respiratory Rate 15 16 17 Blood Pressure 126/83 130/74 127/76 Pulse Oximetry 100 98 98 02/26/20 15:19 Temperature 97.3 F L Pulse Rate 66 Respiratory Rate 16 Blood Pressure 120/67 Pulse Oximetry 96 Oxygen Delivery Method Room Air Narrative Exam Narrative: Patient is resting comfortably in bed alert and oriented with no complaints of pain Abdomen is soft trocar sites covered very nicely with no drainage whatsoever on her Tegaderm dressings. Objective Labs Result Diagrams: 02/26/20 01:40 02/26/20 01:40 Labs: Laboratory Results - last 24 hr 02/26/20 02/26/20 02/26/20 01:40 01:40 04:25 WBC 8.2 RBC 5.33 H Hgb 12.3 Hct 38.8 MCV 72.8 L MCH 23.1 L MCHC 31.7 RDW 14.5 Plt Count 298 Neut % (Auto) 59.4 Lymph % (Auto) 30.5 [place] % (Auto) 7.7 Eos % (Auto) 2.1 Baso % (Auto) 0.3 Neut # (Auto) 4900 Lymph # (Auto) 2500 [place] # (Auto) 600 Eos # (Auto) 200 Baso # (Auto) 0 Sodium 138 Potassium 3.7 Chloride 105 Carbon Dioxide 28 BUN 9 Creatinine 0.79 Estimated GFR > 60.0 BUN/Creatinine Ratio 11.4 Glucose 101 H Calcium 9.3 Total Bilirubin 0.3 AST 26 ALT 21 Alkaline Phosphatase 61 Total Protein 7.0 Albumin 4.2 Globulin 2.8 Albumin/Globulin Ratio 1.5 Lipase 127 COVID-19 PCR Negative Discharge Plan Discharge Plan Patient Disposition: Home Discharge orders & Medications Prescriptions: Continued alprazolam 1 MG tablet 1 mg PO BEDTIME Qty: 0 RF: 0 albuterol sulfate 90 mcg/actuation HFA aerosol inhaler 2 puff Inhalation Q6H PRN (Reason: Wheezing) RF: 0 ondansetron HCl [Zofran] 8 mg Tablet 8 mg PO TID PRN (Reason: Headache) RF: 0 cyclobenzaprine 10 mg tablet 10 mg PO BID RF: 0 lamotrigine 200 mg tablet 200 mg PO DAILY RF: 0 hydroxyzine pamoate 50 mg capsule 50 mg PO BEDTIME PRN (Reason: as directed) RF: 0 omeprazole 20 mg capsule,delayed release(DR/EC) 20 mg PO DAILY RF: 0 olanzapine [Zyprexa] 2.5 mg Tablet 2.5 mg PO BEDTIME RF: 0 Follow up/Referrals: Avis Motta MD [Primary Care Provider] - Diet/Activity/Treatments Diet: Diet as Tolerated Activity: avoid lifting a few weeks Other treatments: call [facility] for staple removal end of this week Skin/Wound/Dressing Care Report to your healthcare provider any signs of infection, such as:: chills, fever, night sweats, increased pain, unusual drainage and unusual redness Dressing: remove in a few days may shower with or without bandaids Other wound treatment: use bandaids as needed Visit Report/Discharge Packet Instructions: DI for an Appendectomy, DI for Laparoscopy, [facility]: Wound Care Visit Report Forms: Patient Portal/API, Stroke Signs & Symptoms Discharge Data Primary Care Provider: Avis Motta VTE Deep Vein Thrombosis/Pulmonary Embolism Present on Admission: No
--- NOTE | 2020-02-26 19:46 | PC.NURSE ---
Discharge note: Pt given all instructions, acknowledged education and signed discharge paperwork. IV removed, left via wheelchair accompanied by mom. All belongings and medications were with the patient. Discharged @ 1905.
--- NOTE | 2020-03-06 17:52 | PC.NURSE ---
Late Entry: D5 0.45NS infusion initiated 02/25 at 11:38, stopped at time of discharge, 02/25 at 19:48.
== END 2020-02-26 19:05 | disposition home or self-care (01) ==
LOC: ED 02:22 → AC 05:15
PROVIDERS: Admitting Provider Surgery; Emergency Provider Emergency Medicine; PCP Family Medicine; Referring Provider Emergency Medicine; Visit Provider Surgery
PROC: 0DTJ4ZZ Resection of Appendix, Percutaneous Endoscopic Approach (ICD-10-PCS; CPT 44970; principal; 2020-02-26 10:00)
DX: K35.80 Unspecified acute appendicitis (principal); R10.31 Right lower quadrant pain; J45.909 Unspecified asthma, uncomplicated; F41.9 Anxiety disorder, unspecified; F31.9 Bipolar disorder, unspecified; E66.01 Morbid (severe) obesity due to excess calories; Z68.39 Body mass index [BMI] 39.0-39.9, adult; Z11.59 Encounter for screening for other viral diseases
CPT/HCPCS: 44970; 36415; 74177; 80053; 81003; 83690; 85025; 87635; 96361; 96365; 96375; 96376; 99219; 99284; G0378; J0330; J1100; J1170; J1885; J2060; J2250; J2405; J2543; J2704; J3010; Q9967

== ENCOUNTER → 2020-10-31 12:16 | Outpatient (CLI) | payer OTHER, MEDICAID, SELFPAY ==
[2020-02-29 11:44] VITALS: BMI 38.7
[2020-10-31 12:51] LABS: Add Manual Diff / Slide Review NO; Basophils Absolute Auto 0 /uL (0-100); Basophils Percent Auto 0.6 % (0-2); Eosinophils Absolute Auto 200 /uL (0-450); Eosinophils Percent Auto 2.4 % (2-4); Hemoglobin 11.5 g/dL (12.0-16.0); Lymphocytes Absolute Auto 1700 /uL (1100-4500); Lymphocytes Percent Auto 26.3 % (25-40); Mean Corpuscular HGB Conc 31.9 % (30-36); Mean Corpuscular Hemoglobin 23.2 PG (26-34); Mean Corpuscular Volume 72.9 fL (80-100); Monocytes Absolute Auto 500 /uL (0-900); Neutrophils Absolute Auto 4100 /uL (1500-7000); Neutrophils Percent Auto 62.7 % (50-75); Platelet Count 292 X10^3/uL (150-400); Red Blood Cell Count 4.94 X10^6/uL (4.0-5.2); Red Cell Distribution Width 14.2 % (11.6-14.8); White Blood Cell Count 6.6 X10^3/uL (4.5-11.0)
[2020-10-31 13:52] LABS: TSH w/ Reflex to FT4 2.78 uIU/mL (0.47-4.68)
== END ==
PROVIDERS: PCP Family Medicine; Referring Provider Specialist; Visit Provider Specialist
DX: R53.83 Other fatigue (principal)
CPT/HCPCS: 36415; 84443; 85025

== ENCOUNTER → 2020-11-03 13:19 | Outpatient (CLI) | payer OTHER, MEDICAID, SELFPAY ==
[2020-02-29 11:44] VITALS: BMI 38.7
[2020-11-03] MEDS: COVID-19 VACC #1, MRNA(MOD) 100 MCG/0.5 ML VIAL IM (13:24)
== END ==
PROVIDERS: PCP Family Medicine; Visit Provider Internal Medicine
DX: Z23 Encounter for immunization (principal)
CPT/HCPCS: 0011A; 91301

== ENCOUNTER → 2020-11-23 08:48 | Outpatient (CLI) | payer OTHER, MEDICAID, SELFPAY ==
[2020-02-29 11:44] VITALS: BMI 38.7
[2020-11-23 10:21] LABS: COVID19 -Nasal RAPID Negative (Negative)
== END ==
PROVIDERS: PCP Family Medicine; Visit Provider Specialist
DX: Z01.812 Encounter for preprocedural laboratory examination (principal); Z20.822 Contact with and (suspected) exposure to COVID-19
CPT/HCPCS: 87635

== ENCOUNTER 2020-11-24 06:31 | Day surgery (SDC) | payer OTHER, MEDICAID, SELFPAY ==
[2020-02-29 11:44] VITALS: BMI 38.7
[2020-11-23 09:38] VITALS: BMI 42.0
[2020-11-24] VITALS (11 sets, daily range): BP systolic 93–136; BP diastolic 45–92; PULSE 69–91; RESP 12–20; TEMP 36.1–37.3; O2SAT 96–98; BMI 40.8
--- NOTE | 2020-11-24 | PATH_ITS ---
[facility] Accession Number: [id number] . 01 Material submitted: . PART A: uterus - UTERUS; BILATERAL FALLOPIAN TUBES PART B: peritoneum - PERITONEAL IMPLANTS . 02 Diagnosis: A. Uterus, Bilateral Fallopian Tubes, Supracervical Hysterectomy and Bilateral Salpingectomies: Uterus with proliferative endometrium. Bilateral fallopian tubes with paratubal cysts. No evidence of neoplasia or hyperplasia. . B. Peritoneal Implants, Biopsies: Endometriosis. Negative for malignancy. MRV 11/30/2020 1608 Local . 02 Electronically signed: . Avis Ricks MD, Pathologist NPI- [id number] . 01 Gross description: . Two parts are received with this case: A. Uterus and bilateral fallopian tubes. B. Peritoneal implants. . A. Received in formalin, labeled with the patient's name and uterus and bilateral fallopian tubes, is a 35 g, 6.0 x 6.0 x 3.0 cm aggregate of a fragmented and morcellated supracervically amputated uterus. No cervix present. The serosa, where identified, is pink-alexander, dull, smooth. The endometrium is pink-alexander, flat, maximal thickness 0.2 cm. The myometrium is pink-alexander, trabeculated, maximum thickness 1.9 cm, as measured in one fragment, without myometrial nodules identified. Also received in the container are two fimbriated segments of fallopian tubes, 2.0-4.0 cm length, 0.6 cm diameter, with purple-alexander serosa, paratubal cysts, and lumen up to 0.3 cm. [employer] sections submitted. . SUMMARY OF SECTIONS: A1. Endomyometrium, full-thickness, two pieces. A2. Endometrium and myometrium, not full-thickness, two pieces. A3. [place] fallopian tube fimbria and cross-sections, four pieces. A4. Longer fallopian tube fimbria and cross-sections, four pieces. . B. Received in formalin, labeled with the patient's name and peritoneal implants, are three pink-alexander fragments of soft tissue, 1.5 x 1.2 x 0.5 cm in aggregate, submitted intact and entirely. . SUMMARY OF SECTIONS: B1. Three pieces. ([id number]) /FRR 11/25/2020 1930 Local . 02 Microscopic: . B. A CD10 immunohistochemical stain was performed to characterize cells of interest. The CD10 stain highlights stromal cells around nonneoplastic glands in the part B block, consistent with endometriosis. A control stain showed appropriate reactivity. . * This test was developed and its performance characteristics determined by [employer]. It has not been cleared or approved by the U.S. Food and Drug Administration. The FDA has determined that such clearance or approval is not necessary. This test is used for clinical purposes. It should not be regarded as investigational or for research. . 02 Pathologist provided ICD-10: N80.9, R10.2 . 02 CPT . 273354, 194022, W53922 Performed at: 01 [facility] [address], [place], [place] [id number] MD Nura Machado MD Phone: [phone] Performed at: [facility] [address] [place], [place] [id number] MD Avis Ricks MD Phone: [phone]
--- NOTE | 2020-11-24 07:20 | PM.PREOP ---
Pre-operative Note COVID-19 COVID-19 status: Negative Result date/Date tested (Pos, Neg/Pending): 11/23/20 Interval Note History & Physical reviewed/Exam performed by Physician: Yes Changes to H&P: No
[2020-11-24] MEDS: LACTATED RINGERS 1,000 ML 100 ML IV (07:35)
--- NOTE | 2020-11-24 07:37 | SUR.PREOP ---
Dr. Rivero, after speaking with pt, decided pt did not need Emend medication.
[2020-11-24] MEDS: ACETAMINOPHEN 325 MG TABLET 975 MG PO (07:40)
[2020-11-24] MEDS: CEFAZOLIN 2 GM/100 ML FROZ.PIGGY IV (07:45)
--- NOTE | 2020-11-24 08:26 | SUR.OPER ---
Lithotomy on padded OR bed. [place] Pad Positioner under torso. Head on pillow, arms padded and tucked at sides. Left arm also resting onto arm board secured onto bed. Legs secured in padded yellow fins stirrups.
[2020-11-24] MEDS: BUPIVACAINE 0.5% W/ EPI (PF) 30 ML VIAL INJ (08:36)
[2020-11-24] MEDS: ROPIVACAINE 2% PF 2 MG/ML 20ML AMP 20 ML INJ (08:50)
[2020-11-24] MEDS: OXYCODONE IR 5 MG TABLET PO ×2 (09:53→13:37)
[2020-11-24] MEDS: hydrOXYzine pamoate 25 MG CAPSULE PO (09:53)
[2020-11-24] MEDS: LACTATED RINGERS 1,000 ML 120 ML IV (10:35)
[2020-11-24] MEDS: KETOROLAC 30 MG/ML VIAL IV (11:25)
--- NOTE | 2020-11-24 11:39 | PC.NURSE ---
Patient alert, oriented rates abdominal pain 3/10. Denies nausea. Patient oriented to room and call light.
--- NOTE | 2020-11-24 13:43 | PC.NURSE ---
Patient up to bathroom, gait steady, voided 975cc. Rates pain 5/10 given one 5mg oxycodone.
--- NOTE | 2020-11-24 14:39 | P.DS_ITS ---
History of Present Illness History of Present Illness Date Patient Seen: 11/24/20 Time Patient Seen: 14:39 Chief complaint: [facility]CH *OPB* Narrative: Patient is postoperative laparoscopic supracervical hysterectomy with bilateral salpingectomies and removal of perineal endometriosis for menorrhagia and dysmenorrhea. Discharge Providers Provider Discharge Date: 11/24/20 Primary care physician: Avis Motta MD Discharge provider: Afsaneh Ash MD Summary Hospital Course Discharge Diagnosis: Dysmenorrhea and menorrhagia, perineal endometriosis Hospital Course: Patient underwent a laparoscopic supracervical hysterectomy with bilateral salpingectomies and removal of peritoneal endometriosis. Patient is ambulatory. She is not nauseated. Her pain is under control. Patient would like to be discharged. Status at Discharge Cognitive/behavioral status at discharge: oriented Functional status at discharge: independent ambulation Overall status at discharge: patient is progressing back to baseline Time Spent with Patient Time spent: Less than 30 minutes Exam Vital Signs (past 8 hours): - 11/24/20 07:21 11/24/20 09:34 11/24/20 09:39 Temperature 97.4 F L 99.1 F Pulse Rate 86 91 H 81 Respiratory Rate 20 14 18 Blood Pressure 130/81 120/72 116/71 Pulse Oximetry 97 96 96 11/24/20 09:44 11/24/20 09:48 11/24/20 09:54 Temperature Pulse Rate 84 77 76 Respiratory Rate 14 14 12 Blood Pressure 93/45 L 115/70 113/81 Pulse Oximetry 98 97 98 11/24/20 09:59 11/24/20 10:12 11/24/20 10:47 Temperature 97.0 F L 97.0 F L Pulse Rate 72 74 78 Respiratory Rate 12 14 16 Blood Pressure 120/76 122/78 124/84 Pulse Oximetry 98 97 97 11/24/20 11:02 11/24/20 12:36 Temperature 97.0 F L 97.0 F L Pulse Rate 69 86 Respiratory Rate 16 16 Blood Pressure 118/92 H 136/61 Pulse Oximetry 98 98 Oxygen Delivery Method Room Air Oxygen Flow Rate 0 Narrative Exam Narrative: Patient's abdomen is soft, nontender. Dressings are clean, dry, intact. Extremities without edema and nontender. [facility] Medical History (Updated 11/24/20 @ 09:38 by Afsaneh Ash MD) Anxiety Bipolar disorder with depression Borderline personality disorder Degenerative disc disease, cervical History of alcoholism Menorrhagia Migraine headache with aura Suicide attempt (~2016) Suicide ideation (~06/2018) Surgical History (Updated 11/24/20 @ 09:38 by Afsaneh Ash MD) H/O breast augmentation H/O section H/O tubal ligation History of endometrial ablation (02/01/19) History of tonsillectomy Hx of appendectomy (~02/26/20) Social History household members: family Smoking Status: Former smoker alcohol intake: former Discharge Assessment & Plan Assessment and Plan Assessment: Postoperative laparoscopic supracervical hysterectomy doing well. Plan of Treatment: Patient is discharged home to follow-up in 1 week. Precautions reviewed with the patient. Discharge Plan Discharge Plan Patient Disposition: Home Discharge orders & Medications Discharge Orders: Discharge (Order); Ordered 11/24/20 Ordered By: Afsaneh Ash Prescriptions: New ibuprofen 600 mg Tablet 600 mg PO Q6H PRN (Reason: Fever/Mild Pain (1-3)) Qty: 30 RF: 0 oxycodone-acetaminophen 5-325 mg tablet 1 tab PO Q4-6H PRN (Reason: pain) Qty: 30 RF: 0 Continued alprazolam 1 MG tablet 2 mg PO BEDTIME Qty: 0 RF: 0 albuterol sulfate 90 mcg/actuation HFA aerosol inhaler 2 puff Inhalation Q6H PRN (Reason: Wheezing) RF: 0 ondansetron HCl [Zofran] 8 mg Tablet 8 mg PO TID PRN (Reason: Headache) RF: 0 cyclobenzaprine 10 mg tablet 10 mg PO BID PRN (Reason: Muscle Spasm) RF: 0 lamotrigine 200 mg tablet 200 mg PO DAILY RF: 0 hydroxyzine pamoate 50 mg capsule 50 mg PO BEDTIME PRN (Reason: as directed) RF: 0 omeprazole 20 mg capsule,delayed release(DR/EC) 20 mg PO DAILY RF: 0 olanzapine [Zyprexa] 2.5 mg Tablet 2.5 mg PO BEDTIME PRN (Reason: Acid Reflux) RF: 0 gabapentin 600 mg Tablet 1,200 mg PO BEDTIME RF: 0 fluoxetine 20 mg Tablet 20 mg PO DAILY RF: 0 Follow up/Referrals: Avis Motta MD [Primary Care Provider] - Afsaneh Ash MD [Physician] - 1 Week (Postoperative exam) Diet/Activity/Treatments Diet: Regular Skin/Wound/Dressing Care Report to your healthcare provider any signs of infection, such as:: chills, fever, increased pain and unusual redness Dressing: May remove Band-Aids tomorrow. Leave Steri-Strips in place can get wet just pat dry. May remove in 1 week. Visit Report/Discharge Packet Instructions: DI for Laparoscopy Discharge Data Primary Care Provider: Avis Motta Attending Provider: Afsaneh Ash
--- NOTE | 2020-11-24 15:33 | PC.NURSE ---
Patient with discharge orders, all discharge instructions explained and given to patient. Patient denied any pain, A&O, calm and cooperative. Denied having meds in pharmacy or valuables in the safe. Patient taken down to transportation by hospital staff via wheelchair.
--- NOTE | 2020-11-30 16:08 | PM.OP.1 ---
Operative Date/Time/Diagnoses Date of procedure: 11/24/20 Time of procedure: 09:00 Pre-op diagnosis: Dysmenorrhea, menorrhagia status post endometrial ablation and tubal ligation for laparoscopic supracervical hysterectomy Post-op diagnosis: same Procedure & Clinicians Procedure: Laparoscopic assisted supracervical hysterectomy with removal of perineal endometriosis Same procedure as scheduled: Yes Indications: Dysmenorrhea, menorrhagia with a history of tubal ligation and endometrial ablation requesting hysterectomy Surgeon: Afsaneh Ash Plate Molder: Patience Crain Anesthesia Type: General Operative Notes Findings: Normal appearing uterus with evidence of prior tubal ligation and perineal endometriosis. The endometriosis was on the posterior broad ligaments and was resected Closure Type: primary Specimen(s): other (Uterus above the level of the cervix and perineal biopsies) Applied: catheter (Crooks removed at the end of the case) Estimated Blood Loss (mL): 20 Blood products transfused: none Procedure in detail: Patient is brought to the operating room where she underwent general anesthesia and placed in ltac, located within [facility] stirrups. She was prepped and draped in the usual sterile fashion. A check list was reviewed with the staff in the room prior to beginning of the case. Patient had pulsatile stockings in place and functional. 2 g of Ancef were in prior to beginning of the case.. A Crooks catheter was placed. A single-tooth tenaculum was placed on the anterior lip of the cervix and the cervix dilated to a #6 Hegar dilator. The uterine manipulator was placed through the cervix into the uterus with the balloon inflated with 3 mL of air. The area of the umbilical incision and the 5 mm right and left lower quadrant incisions were injected with Marcaine. An incision was made with scalpel. The verries needle was placed into the abdomen and confirmed in the appropriate place with withdrawal on a syringe and then free flow of fluid down through the needle. The abdomen was insufflated with CO2. The needle was removed and a 5 mm trocar placed without difficulty. There did not appear to be any damage is placement of the trocar. The right and left lower quadrant incisions were made with the scalpel and the trochars placed without damage to internal structures. The PK forceps were used to cauterize the mesosalpinx followed by the round ligaments on both sides. The utero-ovarian ligaments were cauterized and cut. Sequential bites were taken down the broad ligaments. The uterine arteries were cauterized. An incision was made above the level bladder pushing the bladder away from the cervix. The VINCENT loop was placed around the uterus and the uterus was amputated above the level of the bladder. Bleeding was controlled with the PK forceps. The PK forceps were used to cauterize in the endocervical canal. A supracervical incision was made and an 11 mm port placed. A 15 mm Endo Catch bag was placed in the abdomen. The uterus and tubes were placed in the bag and brought up through the suprapubic port site. The Itz O was placed. The uterus was hand morselized. The abdomen was reinsufflated and adequate hemostasis was noted. 3 Areas of peritoneal endometriosis were grasped and removed with sharp dissection. Bleeding was controlled with the cautery. The trochars were removed and the CO2 allowed escape from the abdomen. The fascia layer of the suprapubic site was repaired with 0 Polysorb suture. Skin was closed with 4-0 Monocryl suture at the suprapubic site and the other 3 sites. The patient went to recovery room in good condition. Counts of instruments and sponges were correct. Dr. Crain was present throughout the case to assist with holding the camera, retracting, cauterizing and cutting the structures on the left side of the patient, as well as assisting with morselization of the uterus. Complications: none Post-operative Condition: stable Disposition: observation Plan for aftercare: Patient will be discharged home when she is tolerating regular diet, ambulatory and pain under control.
== END 2020-11-24 15:10 | disposition home or self-care (01) ==
LOC: OR 06:32 → AC 08:27
PROVIDERS: PCP Family Medicine; Referring Provider Family Medicine; Visit Provider Specialist
PROC: 0UT94ZL Resection of Uterus, Supracervical, Percutaneous Endoscopic Approach (ICD-10-PCS; CPT 58542; principal; 2020-11-24 07:45)
DX: N94.6 Dysmenorrhea, unspecified (principal); N92.0 Excessive and frequent menstruation with regular cycle; N80.3 Endometriosis of pelvic peritoneum; N83.8 Other noninflammatory disorders of ovary, fallopian tube and broad ligament; R10.2 Pelvic and perineal pain; E66.9 Obesity, unspecified; Z68.41 Body mass index [BMI] 40.0-44.9, adult; K21.9 Gastro-esophageal reflux disease without esophagitis; J45.909 Unspecified asthma, uncomplicated; Z90.711 Acquired absence of uterus with remaining cervical stump; Z87.891 Personal history of nicotine dependence
CPT/HCPCS: 58542; 81025; A9270; J0330; J0690; J1100; J1885; J2250; J2405; J2704; J2795; J3010

== ENCOUNTER → 2020-12-01 13:15 | Outpatient (CLI) | payer OTHER, MEDICAID, SELFPAY ==
[2020-11-24 10:17] VITALS: BMI 40.8
[2020-12-01] MEDS: COVID-19 VACC #2, MRNA(MOD) 100 MCG/0.5 ML VIAL IM (13:21)
== END ==
PROVIDERS: PCP Family Medicine; Visit Provider Internal Medicine
DX: Z23 Encounter for immunization (principal)
CPT/HCPCS: 0012A; 91301

== ENCOUNTER 2021-02-24 22:07 | Emergency (ER) | payer OTHER, MEDICAID, SELFPAY ==
[2020-11-24 10:17] VITALS: BMI 40.8
[2021-02-24 22:11] VITALS: BP 143/84; PULSE 96; RESP 18; TEMP 36.4; O2SAT 96; BMI 41.5
--- NOTE | 2021-02-24 23:38 | ED.BACK ---
HPI - Back Pain/Injury General Chief Complaint: Back Pain/Injury Stated Complaint: Low back pain for 1 week Time Seen by Provider: 02/24/21 22:47 Source: patient Limitations: no limitations History of Present Illness HPI Narrative: Patient is a 45-year-old female here for evaluation of right-sided lower back pain that is radiating down her right leg. She has had symptoms for the past week. No fevers. 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 No urinary symptoms. Related Data Home Medications Medication Instructions Recorded Confirmed alprazolam 1 mg tablet 2 mg PO BEDTIME #0 05/05/17 12/05/20 albuterol sulfate 90 mcg/actuation 2 puff INHALATION Q6H PRN 06/08/18 12/05/20 aerosol inhaler ondansetron HCl 8 mg tablet 8 mg PO TID PRN 02/01/19 12/05/20 (Zofran) cyclobenzaprine 10 mg tablet 10 mg PO BID PRN 09/13/19 12/05/20 hydroxyzine pamoate 50 mg capsule 50 mg PO BEDTIME PRN 09/13/19 12/05/20 lamotrigine 200 mg tablet 200 mg PO DAILY 09/13/19 12/05/20 omeprazole 20 mg capsule,delayed 20 mg PO DAILY 09/13/19 12/05/20 release olanzapine 2.5 mg tablet (Zyprexa) 2.5 mg PO BEDTIME PRN 02/26/20 12/05/20 fluoxetine 20 mg tablet 20 mg PO DAILY 11/24/20 12/05/20 gabapentin 600 mg tablet 1,200 mg PO BEDTIME 11/24/20 12/05/20 Previous Rx's Medication Instructions Recorded ibuprofen 600 mg tablet 600 mg PO Q6H PRN #30 tab 11/24/20 Allergies Allergy/AdvReac Type Severity Reaction Status Date / Time Sulfa (Sulfonamide Allergy Intermediate RASH Verified 02/24/21 22:11 Antibiotics) [SULFA (SULFONAMIDE ANTIBIOTICS)] hydrocodone AdvReac Intermediate ITCHING Verified 02/24/21 22:11 Review of Systems Constitutional Constitutional: Reports system reviewed and no additional complaints, except as documented Cardiovascular Cardiovascular: Reports system reviewed and no additional complaints, except as documented Respiratory Respiratory: Reports system reviewed and no additional complaints, except as documented Gastrointestinal Gastrointestinal: Reports system reviewed and no additional complaints, except as documented Genitourinary Genitourinary: Reports system reviewed and no additional complaints, except as documented Comments: No loss of bowel or bladder, Musculoskeletal Musculoskeletal: Reports back pain Integumentary/Breasts Skin/Breast: Reports system reviewed and no additional complaints, except as documented Neurologic Neurologic: Reports system reviewed and no additional complaints, except as documented Hematologic/Lymphatic On Anticoagulants: No Patient History Medical History Anxiety Bipolar disorder with depression Borderline personality disorder Degenerative disc disease, cervical History of alcoholism Menorrhagia Migraine headache with aura Suicide attempt (~2016) Suicide ideation (~06/2018) Surgical History (Updated 11/24/20 @ 09:38 by Afsaneh Ash MD) H/O breast augmentation H/O section H/O tubal ligation History of endometrial ablation (02/01/19) History of tonsillectomy Hx of appendectomy (~02/26/20) Social History household members: family Smoking Status: Former smoker alcohol intake: former Smoking Status: Former smoker Substance Use Type: does not use Exam Initial Vital Signs Initial Vital Signs: Vital Signs Temperature 97.5 F L 02/24/21 22:11 Pulse Rate 96 H 02/24/21 22:11 Respiratory Rate 18 02/24/21 22:11 Blood Pressure 143/84 H 02/24/21 22:11 Pulse Oximetry 96 02/24/21 22:11 Const General: cooperative and healthy appearing [facility] Head: normal to inspection and normocephalic Resp Effort & Inspection: normal respiratory effort Cardio Rate: regular rate Back/Spine/Pelvis Thoracic/Lumbar Spine: paraspinal tenderness (Right-sided thoracolumbar) Skin General: no rashes or lesions noted Neuro General: patient alert, patient awake and moves all extremities Extrem General: normal to inspection and capillary refill normal Psych Appearance: grossly normal and well kempt Course Orders Ordered: Discontinued Medications Hydrocodone Bitart/Acetaminophen (Hydrocodone/Acet 5/325 Tablet) 1 tab PO NOW ONE Stop: 02/24/21 23:40 Last Admin: 02/24/21 23:47 Dose: 1 tab Documented by: KGALLAG Ketorolac Tromethamine (Ketorolac 30 Mg/Ml Vial) 30 mg IM NOW ONE Stop: 02/24/21 23:40 Last Admin: 02/24/21 23:46 Dose: 30 mg Documented by: ZUHAIR Vital Signs Vital signs: Vital Signs - 8 hr 02/24/21 23:58 Pulse Rate 75 Respiratory Rate 17 Blood Pressure 132/61 Pulse Oximetry 100 MDM - Back Pain/Injury MDM Narrative Medical decision making narrative: High suspicion that this is musculoskeletal in origin. No indication for radiologic studies. No red flag symptoms concerning for cauda equina nor fracture. We did discuss conservative treatment for her pain. Will try to control symptoms with medications. She was given return precautions and follow-up instructions. She expressed understanding and agreement. Discharge Plan Departure Patient Disposition: Home Clinical Impression: Lumbar back pain Instructions: DI for Low Back Pain Activity Restrictions/Additional Instructions: Recommend that you stay as active as possible. You can use heat/ice/massages needed. Also recommend that you continue with your anti-inflammatories and gabapentin. Contact your primary provider for follow-up. Return to the emergency department for any new or worsening symptoms Prescriptions: No Action alprazolam 1 MG tablet 2 mg PO BEDTIME Qty: 0 RF: 0 albuterol sulfate 90 mcg/actuation HFA aerosol inhaler 2 puff Inhalation Q6H PRN (Reason: Wheezing) RF: 0 ondansetron HCl [Zofran] 8 mg Tablet 8 mg PO TID PRN (Reason: Headache) RF: 0 cyclobenzaprine 10 mg tablet 10 mg PO BID PRN (Reason: Muscle Spasm) RF: 0 lamotrigine 200 mg tablet 200 mg PO DAILY RF: 0 hydroxyzine pamoate 50 mg capsule 50 mg PO BEDTIME PRN (Reason: as directed) RF: 0 omeprazole 20 mg capsule,delayed release(DR/EC) 20 mg PO DAILY RF: 0 olanzapine [Zyprexa] 2.5 mg Tablet 2.5 mg PO BEDTIME PRN (Reason: Acid Reflux) RF: 0 gabapentin 600 mg Tablet 1,200 mg PO BEDTIME RF: 0 fluoxetine 20 mg Tablet 20 mg PO DAILY RF: 0 ibuprofen 600 mg Tablet 600 mg PO Q6H PRN (Reason: Fever/Mild Pain (1-3)) Qty: 30 RF: 0 Referrals: Avis Motta MD [Primary Care Provider] -
[2021-02-24] MEDS: KETOROLAC 30 MG/ML VIAL IM (23:46)
[2021-02-24] MEDS: HYDROCODONE/ACET 5/325 TABLET 1 TAB PO (23:47)
[2021-02-24 23:58] VITALS: BP 132/61; PULSE 75; RESP 17; O2SAT 100
== END 2021-02-24 23:59 | disposition home or self-care (01) ==
PROVIDERS: Emergency Provider Emergency Medicine; PCP Family Medicine
DX: M54.5 Low back pain (principal)
CPT/HCPCS: 96372; 99283; J1885

== ENCOUNTER 2021-05-12 00:33 | Emergency (ER) | payer OTHER, MEDICAID, SELFPAY ==
[2020-11-24 10:17] VITALS: BMI 40.8
[2021-05-12 00:50] VITALS: BP 146/98; PULSE 84; RESP 20; TEMP 37.2; O2SAT 97; BMI 42.0
--- NOTE | 2021-05-12 01:43 | ED_ITS ---
HPI - Wound/Laceration <Padilla Quiñonez MD - Last Filed: 05/19/21 07:45> General Chief Complaint: Wound/Laceration Stated Complaint: left forarm lacerations self i Time Seen by Provider: 05/12/21 01:32 Source: patient Mode of arrival: Ambulatory Limitations: no limitations History of Present Illness HPI narrative: Patient here for SI/depression. She did cut her left forearm. She states she does that to feel the pain instead of depression. Has done that in the past. Patient last admission to the hospital for depression was September 2019. Has been doing well. Has daily auditory hallucinations which is not new even while on medications. She tried taking herself off medications for 4 weeks ago. Depression got worse. Had an last 4 days she resume taking her medications to help. No HI. No visual hallucinations. Denies any drugs or alcohol consumption or overdose. History of hysterectomy. No recent illness. Has 2 transverse lacerations in the medial left forearm. No active bleeding. Based visualize. No foreign body. No muscle or tendon injury or bone exposure seen. Strong pairer odds. Strong radial pulse. No active bleeding. Patient is voluntary, desires inpatient care. Related Data Home Medications Medication Instructions Recorded Confirmed alprazolam 1 mg tablet 2 mg PO BEDTIME #0 05/05/17 05/12/21 albuterol sulfate 90 mcg/actuation 2 puff INHALATION Q6H PRN 06/08/18 05/12/21 aerosol inhaler ondansetron HCl 8 mg tablet 8 mg PO TID PRN 02/01/19 05/12/21 (Zofran) cyclobenzaprine 10 mg tablet 10 mg PO BID PRN 09/13/19 05/12/21 hydroxyzine pamoate 50 mg capsule 50 mg PO BEDTIME PRN 09/13/19 05/12/21 lamotrigine 200 mg tablet 200 mg PO DAILY 09/13/19 05/12/21 omeprazole 20 mg capsule,delayed 20 mg PO DAILY PRN 09/13/19 05/12/21 release olanzapine 2.5 mg tablet (Zyprexa) 2.5 mg PO BEDTIME PRN 02/26/20 05/12/21 fluoxetine 20 mg tablet 20 mg PO DAILY 11/24/20 05/12/21 gabapentin 600 mg tablet 1,200 mg PO BEDTIME 11/24/20 05/12/21 gabapentin 300 mg tablet 600 mg PO BID 05/12/21 05/12/21 Previous Rx's Medication Instructions Recorded ibuprofen 600 mg tablet 600 mg PO Q6H PRN #30 tab 11/24/20 Allergies Allergy/AdvReac Type Severity Reaction Status Date / Time Sulfa (Sulfonamide Allergy Intermediate RASH Verified 02/24/21 22:11 Antibiotics) [SULFA (SULFONAMIDE ANTIBIOTICS)] hydrocodone AdvReac Intermediate ITCHING Verified 02/24/21 22:11 Review of Systems <Padilla Quiñonez MD - Last Filed: 05/19/21 07:45> Review of Systems Narrative: GENERAL: Denies chills, fatigue, malaise, fever, sweats. HEENT: Denies sinus pain, ear pain, sore throat RESPIRATORY: Denies dyspnea, cough CARDIOVASCULAR: Denies chest pain, palpitations GASTROINTESTINAL: Denies nausea, vomiting, abdominal pain : Denies dysuria, frequency, hematuria MUSCULOSKELETAL: denies muscle or bony pain SKIN: Denies rash, skin lesions NEUROLOGIC: Denies weakness, numbness PSYCH: No HI, positive for SI without plan, positive auditory hallucinations, negative for visual hallucinations. Positive depression ROS Unobtainable: All systems reviewed & are unremarkable except as noted in HPI and below Patient History <Padilla Quiñonez MD - Last Filed: 05/19/21 07:45> Medical History Anxiety Bipolar disorder with depression Borderline personality disorder Degenerative disc disease, cervical History of alcoholism Menorrhagia Migraine headache with aura Suicide attempt (~2016) Suicide ideation (~06/2018) Surgical History (Updated 11/24/20 @ 09:38 by Afsaneh Ash MD) H/O breast augmentation H/O section H/O tubal ligation History of endometrial ablation (02/01/19) History of tonsillectomy Hx of appendectomy (~02/26/20) Social History household members: family Smoking Status: Former smoker alcohol intake: former Smoking Status: Former smoker alcohol intake frequency: 0-2 drinks per day Substance Use Type: does not use Exam <Padilla Quiñonez MD - Last Filed: 05/19/21 07:45> Narrative Exam Narrative: GENERAL: in no distress, not toxic not dyspneic HEAD: Normocephalic. EYES: Pupils equal round No scleral icterus. No injection no discharge ENT: Mucous membranes moist. NECK: Trachea midline. CARDIOVASCULAR: Regular rate and rhythm without murmurs RESPIRATORY: Clear to auscultation. Breath sounds equal bilaterally. No wheezes, rales, or rhonchi. GASTROINTESTINAL: Abdomen soft, non-tender EXTREMITIES: No gross deformities. Two horizontal lacerations in the mid volar left forearm. Each 2 cm in length. Superficial. Based visualized. No foreign body, no bone or tendon or muscle injury exposure seen. Strong pairer odds in radial pulse. Like to check to fingers and thumb. Able to supinate pronate flex and extend at the wrist and forearm. BACK: No flank tenderness. NEURO: AOx4. SKIN: Warm and dry PSYCH: Not anxious, is cooperative, slight flat affect. No HI. Positive for SI without plan. Positive for auditory hallucinations. No pressured speech. No flight of ideas. Initial Vital Signs Initial Vital Signs: Vital Signs Temperature 99.0 F 05/12/21 00:50 Pulse Rate 84 05/12/21 00:50 Respiratory Rate 20 05/12/21 00:50 Blood Pressure 146/98 H 05/12/21 00:50 Pulse Oximetry 97 05/12/21 00:50 <Blaire Anthony DO - Last Filed: 05/12/21 15:53> Initial Vital Signs Initial Vital Signs: Vital Signs Temperature 99.0 F 05/12/21 00:50 Pulse Rate 84 05/12/21 00:50 Respiratory Rate 20 05/12/21 00:50 Blood Pressure 146/98 H 05/12/21 00:50 Pulse Oximetry 97 05/12/21 00:50 Procedures <Padilla Quiñonez MD - Last Filed: 05/19/21 07:45> Laceration Repair Laceration 1: Time of procedure: 03:43 Site: upper extremity Side (If applicable): left Size (cm): 3 Description: linear Depth: simple, single layer Local Anesthetic: lidocaine 1% and with epi Amount of anesthesia used (mL): 3 Pre-repair: wound explored, irrigated extensively and deep structures intact Skin layer closed with: nylon Size (cm): 4-0 Number of sutures: 7 Technique: simple, interrupted Laceration 2: Time of procedure: 03:44 Site: upper extremity Side (If applicable): left Size (cm): 2 Description: linear Depth: simple, single layer Local Anesthetic: lidocaine 1% and with epi Amount of anesthesia used (mL): 2 Pre-repair: wound explored, irrigated extensively and deep structures intact Skin layer closed with: nylon Size (cm): 4-0 Number of sutures: 5 Technique: simple, interrupted Course <Padilla Quiñonez MD - Last Filed: 05/19/21 07:45> Course Course Narrative: 7:00 a.m.. Signed out to Dr. anthony, awaiting for social Work consult. Patient. Cooperative. Very pleasant. Patient voluntary desiring in patient care. Orders Ordered: Discontinued Medications Bacitracin (Bacitracin Oint 0.9 Gm Pckt) 1 applic TOP NOW ONE Stop: 05/12/21 03:59 Last Admin: 05/12/21 04:01 Dose: 1 applic Documented by: CARMELITA Fluoxetine HCl (Fluoxetine 20 Mg Capsule) 20 mg PO DAILY [facility] Last Admin: 05/12/21 09:25 Dose: 20 mg Documented by: GIACOMO Gabapentin (Gabapentin 600 Mg Tablet) 600 mg PO BID [facility] Last Admin: 05/12/21 09:25 Dose: 600 mg Documented by: GIACOMO Gabapentin (Gabapentin 600 Mg Tablet) 600 mg PO NOW ONE Stop: 05/12/21 14:31 Last Admin: 05/12/21 14:38 Dose: 600 mg Documented by: MAURA Ibuprofen (Ibuprofen 400 Mg Tablet) 800 mg PO NOW ONE Stop: 05/12/21 14:31 Last Admin: 05/12/21 14:34 Dose: 800 mg Documented by: MAURA Reevaluation(s) Reevaluation #1: Patient tolerated procedure very well. Patient very cooperative. In no distress. Time: 03:45 Vital Signs Vital signs: Vital Signs - 8 hr 05/12/21 13:30 05/12/21 15:48 Temperature 98 F Pulse Rate 94 H 74 Respiratory Rate 16 16 Blood Pressure 142/80 H 125/80 Pulse Oximetry 99 97 <Blaire Anthony DO - Last Filed: 05/12/21 15:53> Orders Ordered: Discontinued Medications Bacitracin (Bacitracin Oint 0.9 Gm Pckt) 1 applic TOP NOW ONE Stop: 05/12/21 03:59 Last Admin: 05/12/21 04:01 Dose: 1 applic Documented by: CARMELITA Fluoxetine HCl (Fluoxetine 20 Mg Capsule) 20 mg PO DAILY [facility] Last Admin: 05/12/21 09:25 Dose: 20 mg Documented by: GIACOMO Gabapentin (Gabapentin 600 Mg Tablet) 600 mg PO BID [facility] Last Admin: 05/12/21 09:25 Dose: 600 mg Documented by: GIACOMO Gabapentin (Gabapentin 600 Mg Tablet) 600 mg PO NOW ONE Stop: 05/12/21 14:31 Last Admin: 05/12/21 14:38 Dose: 600 mg Documented by: MAURA Ibuprofen (Ibuprofen 400 Mg Tablet) 800 mg PO NOW ONE Stop: 05/12/21 14:31 Last Admin: 05/12/21 14:34 Dose: 800 mg Documented by: MAURA Reevaluation(s) Reevaluation #2: Patient signed out to myself. Independently evaluated and seen by myself. Patient is wishing to seek voluntary inpatient psychiatric care at this time. Social Work is reviewing her chart. Patient is medically cleared her lacerations were sutured by Dr. Quiñonez. She accept her medications for about a month but has been back on them for about 5 days. She typically takes gabapentin and Prozac in the morning. Patient states she still has suicidal ideation and thoughts, she does not have intent but is concerned about being able to maintain her own personal safety at home. She has had good experience at [facility] with inpatient psychiatric care but she is open to whatever facilities are available. Time: 08:43 Reevaluation #3: Patient was accepted. She is comfortable with this plan. She does have a bit of headache given ibuprofen 800 mg. She states she actually takes her gabapentin 3 times daily and is due for a dose was given additional dose of 600 mg here in the department. Consultations Consultation #1: Patient accepted for transfer to [facility] by ARLETH Epperson. Plan for transfer with arrival around 1730. Vital Signs Vital signs: Vital Signs - 8 hr 05/12/21 13:30 05/12/21 15:48 Temperature 98 F Pulse Rate 94 H 74 Respiratory Rate 16 16 Blood Pressure 142/80 H 125/80 Pulse Oximetry 99 97 MDM - Wound/Laceration <Padilla Quiñonez MD - Last Filed: 05/19/21 07:45> Differential Diagnosis Differential diagnosis: Likely laceration and other (si/depression) Lab Data Result diagrams: 05/12/21 02:30 05/12/21 02:30 Labs: Lab Results 05/12/21 05/12/21 05/12/21 Range/Units 02:30 02:30 02:30 WBC 7.8 (4.5-11.0) X10^3/uL RBC 5.09 (4.0-5.2) X10^6/uL Hgb 11.6 L (12.0-16.0) g/dL Hct 37.4 (36-46) % MCV 73.4 L (80-100) fL MCH 22.8 L (26-34) PG MCHC 31.1 (30-36) % RDW 14.3 (11.6-14.8) % Plt Count 320 (150-400) X10^3/uL Neut % (Auto) 55.0 (50-75) % Lymph % (Auto) 34.4 (25-40) % [place] % (Auto) 7.3 (3-14) % Eos % (Auto) 2.3 (2-4) % Baso % (Auto) 1.0 (0-2) % Neut # (Auto) 4300 (9988-1169) /uL Lymph # (Auto) 2700 (6604-1262) /uL [place] # (Auto) 600 (0-900) /uL Eos # (Auto) 200 (0-450) /uL Baso # (Auto) 100 (0-100) /uL Sodium 140 (137-145) mmol/L Potassium 3.9 (3.4-5.1) mmol/L Chloride 105 (98-107) mmol/L Carbon Dioxide 30 (22-32) mmol/L BUN 15 (7-17) mg/dL Creatinine 1.00 (0.52-1.04) mg/dL Estimated GFR > 60.0 (>60) mL/min BUN/Creatinine Ratio 15.0 (6-22) Glucose 95 (70-100) mg/dL Calcium 9.2 (8.4-10.2) mg/dL Total Bilirubin 0.2 (0.2-1.3) mg/dL AST 41 H (14-36) IU/L ALT 62 H (<35) IU/L Alkaline Phosphatase 61 (38-126) U/L Total Protein 6.6 (6.3-8.2) g/dL Albumin 4.0 (3.5-5.0) g/dL Globulin 2.6 (1.7-4.1) g/dL Albumin/Globulin Ratio 1.5 (1.0-2.8) TSH 4.39 (0.47-4.68) uIU/mL U Opiates 300ng/mL cut (Negative) Ur Oxycodone Screen (Negative) Urine Methadone Screen (Negative) Ur Barbiturates Screen (Negative) U Tricyclic Antidepress (Negative) Ur Phencyclidine Scrn (Negative) Ur Amphetamines Screen (Negative) U Methamphetamines Scrn (Negative) Ur MDMA Scrn (Ecstasy) (Negative) U Benzodiazepines Scrn (Negative) Urine Cocaine Screen (Negative) U Marijuana (THC) Screen (Negative) Ethyl Alcohol ( - 10) mg/dL SARS-CoV-2 (PCR) (Negative) 05/12/21 05/12/21 05/12/21 Range/Units 02:30 02:30 02:30 WBC (4.5-11.0) X10^3/uL RBC (4.0-5.2) X10^6/uL Hgb (12.0-16.0) g/dL Hct (36-46) % MCV (80-100) fL MCH (26-34) PG MCHC (30-36) % RDW (11.6-14.8) % Plt Count (150-400) X10^3/uL Neut % (Auto) (50-75) % Lymph % (Auto) (25-40) % [place] % (Auto) (3-14) % Eos % (Auto) (2-4) % Baso % (Auto) (0-2) % Neut # (Auto) (0275-2966) /uL Lymph # (Auto) (9782-7605) /uL [place] # (Auto) (0-900) /uL Eos # (Auto) (0-450) /uL Baso # (Auto) (0-100) /uL Sodium (137-145) mmol/L Potassium (3.4-5.1) mmol/L Chloride (98-107) mmol/L Carbon Dioxide (22-32) mmol/L BUN (7-17) mg/dL Creatinine (0.52-1.04) mg/dL Estimated GFR (>60) mL/min BUN/Creatinine Ratio (6-22) Glucose (70-100) mg/dL Calcium (8.4-10.2) mg/dL Total Bilirubin (0.2-1.3) mg/dL AST (14-36) IU/L ALT (<35) IU/L Alkaline Phosphatase (38-126) U/L Total Protein (6.3-8.2) g/dL Albumin (3.5-5.0) g/dL Globulin (1.7-4.1) g/dL Albumin/Globulin Ratio (1.0-2.8) TSH (0.47-4.68) uIU/mL U Opiates 300ng/mL cut Positive H (Negative) Ur Oxycodone Screen Negative (Negative) Urine Methadone Screen Negative (Negative) Ur Barbiturates Screen Negative (Negative) U Tricyclic Antidepress Positive H (Negative) Ur Phencyclidine Scrn Negative (Negative) Ur Amphetamines Screen Negative (Negative) U Methamphetamines Scrn Negative (Negative) Ur MDMA Scrn (Ecstasy) Negative (Negative) U Benzodiazepines Scrn Positive H (Negative) Urine Cocaine Screen Negative (Negative) U Marijuana (THC) Screen Negative (Negative) Ethyl Alcohol < 10 ( - 10) mg/dL SARS-CoV-2 (PCR) Negative (Negative) MDM Narrative Medical decision making narrative: Appropriate for transfer. Patient voluntary. Patient is requesting inpatient treatment <Blaire Anthony, DO - Last Filed: 05/12/21 15:53> Lab Data Labs: Lab Results 05/12/21 05/12/21 05/12/21 Range/Units 02:30 02:30 02:30 WBC 7.8 (4.5-11.0) X10^3/uL RBC 5.09 (4.0-5.2) X10^6/uL Hgb 11.6 L (12.0-16.0) g/dL Hct 37.4 (36-46) % MCV 73.4 L (80-100) fL MCH 22.8 L (26-34) PG MCHC 31.1 (30-36) % RDW 14.3 (11.6-14.8) % Plt Count 320 (150-400) X10^3/uL Neut % (Auto) 55.0 (50-75) % Lymph % (Auto) 34.4 (25-40) % [place] % (Auto) 7.3 (3-14) % Eos % (Auto) 2.3 (2-4) % Baso % (Auto) 1.0 (0-2) % Neut # (Auto) 4300 (7488-5523) /uL Lymph # (Auto) 2700 (7960-5813) /uL [place] # (Auto) 600 (0-900) /uL Eos # (Auto) 200 (0-450) /uL Baso # (Auto) 100 (0-100) /uL Sodium 140 (137-145) mmol/L Potassium 3.9 (3.4-5.1) mmol/L Chloride 105 (98-107) mmol/L Carbon Dioxide 30 (22-32) mmol/L BUN 15 (7-17) mg/dL Creatinine 1.00 (0.52-1.04) mg/dL Estimated GFR > 60.0 (>60) mL/min BUN/Creatinine Ratio 15.0 (6-22) Glucose 95 (70-100) mg/dL Calcium 9.2 (8.4-10.2) mg/dL Total Bilirubin 0.2 (0.2-1.3) mg/dL AST 41 H (14-36) IU/L ALT 62 H (<35) IU/L Alkaline Phosphatase 61 (38-126) U/L Total Protein 6.6 (6.3-8.2) g/dL Albumin 4.0 (3.5-5.0) g/dL Globulin 2.6 (1.7-4.1) g/dL Albumin/Globulin Ratio 1.5 (1.0-2.8) TSH 4.39 (0.47-4.68) uIU/mL U Opiates 300ng/mL cut (Negative) Ur Oxycodone Screen (Negative) Urine Methadone Screen (Negative) Ur Barbiturates Screen (Negative) U Tricyclic Antidepress (Negative) Ur Phencyclidine Scrn (Negative) Ur Amphetamines Screen (Negative) U Methamphetamines Scrn (Negative) Ur MDMA Scrn (Ecstasy) (Negative) U Benzodiazepines Scrn (Negative) Urine Cocaine Screen (Negative) U Marijuana (THC) Screen (Negative) Ethyl Alcohol ( - 10) mg/dL SARS-CoV-2 (PCR) (Negative) 05/12/21 05/12/21 05/12/21 Range/Units 02:30 02:30 02:30 WBC (4.5-11.0) X10^3/uL RBC (4.0-5.2) X10^6/uL Hgb (12.0-16.0) g/dL Hct (36-46) % MCV (80-100) fL MCH (26-34) PG MCHC (30-36) % RDW (11.6-14.8) % Plt Count (150-400) X10^3/uL Neut % (Auto) (50-75) % Lymph % (Auto) (25-40) % [place] % (Auto) (3-14) % Eos % (Auto) (2-4) % Baso % (Auto) (0-2) % Neut # (Auto) (5141-1430) /uL Lymph # (Auto) (8366-2710) /uL [place] # (Auto) (0-900) /uL Eos # (Auto) (0-450) /uL Baso # (Auto) (0-100) /uL Sodium (137-145) mmol/L Potassium (3.4-5.1) mmol/L Chloride (98-107) mmol/L Carbon Dioxide (22-32) mmol/L BUN (7-17) mg/dL Creatinine (0.52-1.04) mg/dL Estimated GFR (>60) mL/min BUN/Creatinine Ratio (6-22) Glucose (70-100) mg/dL Calcium (8.4-10.2) mg/dL Total Bilirubin (0.2-1.3) mg/dL AST (14-36) IU/L ALT (<35) IU/L Alkaline Phosphatase (38-126) U/L Total Protein (6.3-8.2) g/dL Albumin (3.5-5.0) g/dL Globulin (1.7-4.1) g/dL Albumin/Globulin Ratio (1.0-2.8) TSH (0.47-4.68) uIU/mL U Opiates 300ng/mL cut Positive H (Negative) Ur Oxycodone Screen Negative (Negative) Urine Methadone Screen Negative (Negative) Ur Barbiturates Screen Negative (Negative) U Tricyclic Antidepress Positive H (Negative) Ur Phencyclidine Scrn Negative (Negative) Ur Amphetamines Screen Negative (Negative) U Methamphetamines Scrn Negative (Negative) Ur MDMA Scrn (Ecstasy) Negative (Negative) U Benzodiazepines Scrn Positive H (Negative) Urine Cocaine Screen Negative (Negative) U Marijuana (THC) Screen Negative (Negative) Ethyl Alcohol < 10 ( - 10) mg/dL SARS-CoV-2 (PCR) Negative (Negative) Discharge Plan Departure Patient Disposition: [facility] Clinical Impression: Laceration of forearm, Depression with suicidal ideation Prescriptions: No Action alprazolam 1 MG tablet 2 mg PO BEDTIME Qty: 0 RF: 0 albuterol sulfate 90 mcg/actuation HFA aerosol inhaler 2 puff Inhalation Q6H PRN (Reason: Wheezing) RF: 0 ondansetron HCl [Zofran] 8 mg Tablet 8 mg PO TID PRN (Reason: Headache) RF: 0 cyclobenzaprine 10 mg tablet 10 mg PO BID PRN (Reason: Muscle Spasm) RF: 0 lamotrigine 200 mg tablet 200 mg PO DAILY RF: 0 hydroxyzine pamoate 50 mg capsule 50 mg PO BEDTIME PRN (Reason: as directed) RF: 0 omeprazole 20 mg capsule,delayed release(DR/EC) 20 mg PO DAILY PRN (Reason: Acid Reflux) RF: 0 gabapentin 300 mg Tablet 600 mg PO BID RF: 0 olanzapine [Zyprexa] 2.5 mg Tablet 2.5 mg PO BEDTIME PRN (Reason: Acid Reflux) RF: 0 gabapentin 600 mg Tablet 1,200 mg PO BEDTIME RF: 0 fluoxetine 20 mg Tablet 20 mg PO DAILY RF: 0 ibuprofen 600 mg Tablet 600 mg PO Q6H PRN (Reason: Fever/Mild Pain (1-3)) Qty: 30 RF: 0 Referrals: Avis Motta MD [Primary Care Provider] -
[2021-05-12 02:45] LABS: Ur Creatinine 20 (Normal); Ur Specific Gravity 1.015 (Normal); Urine pH 5 (Normal)
[2021-05-12 02:46] LABS: Add Manual Diff / Slide Review NO; Basophils Absolute Auto 100 /uL (0-100); Eosinophils Absolute Auto 200 /uL (0-450); Eosinophils Percent Auto 2.3 % (2-4); Hematocrit 37.4 % (36-46); Hemoglobin 11.6 g/dL (12.0-16.0); Lymphocytes Absolute Auto 2700 /uL (1100-4500); Lymphocytes Percent Auto 34.4 % (25-40); Mean Corpuscular HGB Conc 31.1 % (30-36); Mean Corpuscular Hemoglobin 22.8 PG (26-34); Mean Corpuscular Volume 73.4 fL (80-100); Monocytes Absolute Auto 600 /uL (0-900); Monocytes Percent Auto 7.3 % (3-14); Neutrophils Absolute Auto 4300 /uL (1500-7000); Platelet Count 320 X10^3/uL (150-400); Red Blood Cell Count 5.09 X10^6/uL (4.0-5.2); Red Cell Distribution Width 14.3 % (11.6-14.8); UR Morphine/Opiate cutoff 300 Positive (Negative); Urine Amphetamines Negative (Negative); Urine Barbiturates Negative (Negative); Urine Benzodiazepines Positive (Negative); Urine Cocaine Negative (Negative); Urine MDMA Negative (Negative); Urine Methadone Negative (Negative); Urine Methamphetamines Negative (Negative); Urine Oxycodone Negative (Negative); Urine Phencyclidine Negative (Negative); Urine Tetrahydrocannabinol Negative (Negative); Urine Tricyclic Antidepressant Positive (Negative); White Blood Cell Count 7.8 X10^3/uL (4.5-11.0)
[2021-05-12 03:07] LABS: Ethanol (ETOH) < 10 mg/dL
[2021-05-12 03:08] LABS: Alanine Aminotransferase 62 IU/L (<35); Albumin Globulin Ratio 1.5 (1.0-2.8); Alkaline Phosphatase 61 U/L (38-126); Aspartate Aminotransferase 41 IU/L (14-36); Bilirubin Total 0.2 mg/dL (0.2-1.3); Blood Urea Nitrogen 15 mg/dL (7-17); Calcium 9.2 mg/dL (8.4-10.2); Carbon Dioxide 30 mmol/L (22-32); Chloride 105 mmol/L (98-107); Estimated Glomerular Filt Rate > 60.0 mL/min (>60); Globulin 2.6 g/dL (1.7-4.1); Glucose 95 mg/dL (70-100); HEMOLYSIS < 15 (0-50); Potassium 3.9 mmol/L (3.4-5.1); Sodium 140 mmol/L (137-145); Total Protein 6.6 g/dL (6.3-8.2)
[2021-05-12 03:38] LABS: Thyroid Stimulating Hormone 4.39 uIU/mL (0.47-4.68)
[2021-05-12 03:45] LABS: COVID19 - ADMIT (NP swab/PCR) Negative (Negative)
[2021-05-12] MEDS: BACITRACIN OINT 0.9 GM PCKT 1 APPLIC TOP (04:01)
--- NOTE | 2021-05-12 04:11 | PC.NURSE ---
Pt verbally contracted for safety while in the ER.
--- NOTE | 2021-05-12 08:00 | PC.NURSE ---
Patient is calm and asking for coffee. Patient was given food. Went to the restroom. Patient asked about when she would be able to speak with the BALL POINT SPLITTER.
--- NOTE | 2021-05-12 09:02 | PC.NURSE ---
emergency management program specialist is in the room talking with the patient about the plan.
[2021-05-12] MEDS: FLUoxetine 20 MG CAPSULE PO (09:25)
[2021-05-12] MEDS: GABAPENTIN 600 MG TABLET PO ×2 (09:25→14:38)
--- NOTE | 2021-05-12 09:57 | CM.SWNOTE ---
Addendum entered by ANGELINA Freed 05/12/21 12:59: ADD: SKYLAR called [facility] and [facility] and both have possible openings and willing to review. SKYLAR faxed referral to both. Return call from [facility] intake Eli with additional questions and once answered states they can accept pt today as long as pt is agreeable with their only open bed being on the more acute unit. SW requested RN ask pt and pt states she is still agreeable and preference is [facility]. Eli provided accepting provider name, RN report number, and request ETA around 1730 to their facility and no additional clinicals needed. SKYLAR called [facility] and updated on pt's acceptance at another facility. SW met bedside with pt and provided update and pt still voluntary and agreeable and inquired about mother to transport and SW discussed policy of transport for Inpt MH tx be via BLS transport for safety concerns and pt acknowledges understanding. SKYLAR updated NUCLEAR WORKER TECHNICIAN, artificial inseminator, RN, ED MD and all agreeable and NUCLEAR WORKER TECHNICIAN setting up transport now. of note, during MH assessment by ANGELINA, pt discussed her long hx of struggling with gender identity and currently still identifies as female but has been researching and considering eventual surgery and has considered getting more actively involved in gender identity support groups and a therapist more skilled in these areas but pt states she mostly focuses on this during her manic phases. Pt currently not requesting support in this area but states it is something that she will likely eventually address. ANGELINA Freed Original Note: Patient is a 45 yo female who was admitted to [facility] ED on 05/13/21 for suicidal ideation/self harm. Pt has [employer] ADV and MAX for insurance and her PCP is Avis Motta. EMR was reviewed. Per ED MD, pt medically cleared for discharge for Inpt MH tx due to ongoing suicidal ideation and need for med management. ANGELINA met bedside with pt and completed MH assessment (see below) and will begin working on finding placement for pt Voluntary Inpt MH tx. ANGELINA Freed Discharge Planning/Care Management ED Psychiatric Symptoms Assessment Start: 05/12/21 05:11 Freq: Status: Active Protocol: Document 05/12/21 02:00 KMW (Rec: 05/12/21 05:16 KMW [id number]) Psychiatric Symptoms Assessment Symptoms/Complaint Suicidal Ideation Duration Getting Worse History Of Same Yes Context Not Taking Psychiatric Medications Associated Psychiatric Symptoms Depression,Suicidal Ideation Associated Symptoms Insomnia,Headache If Self Harm Admits Thoughts of Self Harm Details of Plan Pt cuts herself intentionally but denies cutting tonight in a suicide attempt. Level of Consciousness Alert,Appropriate,Follows Commands Patient Orientation Name,Age,Birthday,Month,Date, Year,Day of Week,Place, Situation Patient Behavior/Mood Cooperative,Flat Ability to Follow Directions Good Patient Cognition Impaired No Affect Description Apathetic,Calm,Depressed Patient Appearance Well Groomed Hallucination Type None Thought Process: Normal,Goal-directed Depressive Symptoms Hopelessness,Insomnia, Recurrent Thoughts of or Suicide Feelings of Hopelessness Yes Suicidal Ideation Vague,Frequent Suicide Plan No Plan Homicidal Ideation None Nausea/Vomiting None INSTRUCTIONAL SYSTEMS DESIGN CONSULTANT - Hardwood Sawyer Assessment Start: 05/12/21 09:33 Freq: Status: Active Protocol: Document 05/12/21 09:33 BF (Rec: 05/12/21 09:57 BF [id number]) INSTRUCTIONAL SYSTEMS DESIGN CONSULTANT/Hardwood Sawyer Assessment Start date 05/13/21 Visit Start Time 09:00 End date 05/13/21 Visit End Time 09:30 Total time Care Management spent on 120 min patient visit-in minutes Presenting Problem Pt presents to ED due to forearm laceration and suicidal ideation Precipitating Event(s) Pt states that she has felt hypomanic for about 2 months, not sleeping well at all, attempted to wean herself off her mental health meds for the past month and just started back on her meds a couple days ago Patient Strengths Very insightful, established with outpt tx and supports, seeking help Current Behavioral Health Provider(s) Psychiatrist Dr. Clark at [facility], Provider, Ph. # [facility] in [facility], therapist at [facility] in [place] [facility]. Hx Mental Health and Chemical Hx of ETOH but sober 4-5 years Dependency with no relapse. Denies further JEAN CLAUDE. Pt states she has dx of bipolar with anxiety and has hx of Inpt MH tx at [facility] x3 since 2017. Family Hx of Behavioral Abuse unknown Psychiatric Hospitalizations (date(s)/ [facility] 2x and location) [facility] 1x. 2017, 2018 , and 2019. Psychosocial information & Support Pt resides in [place] and Systems has her 17 yo Dtr living with her who goes to school and work. 22 yo Dtr lives in [place], and local supportive mother involved. Pt has a few close friends that provide assist and support when needed. School/Work Denies Legal Matters - Outstanding Issues Denies Orientation (Person/Place/Time) Pt alert and oriented x4 Stated Mood States that she feels obsessive about self harm and cannot seem to distract herself from ongoing suicidal ideations and thoughts. Exhausted from lack of sleep and prolonged manic episode. Feelings of guilt and shame from decisions she has made while manic. Affect (Congruent with Mood?) Calm, cooperative, makes eye contact, relaxed. Thought Content - Specify/Describe Pt denies any visual Obsessions, Delusions, Hallucinations hallucinations but states auditory hallucinations are common for her. Pt states that she is having obsessive thoughts of suicidal ideation and self harm. Thought Processes (Wapmnhy-Eqecfney-Ozmf Pt currently seems logical and Rstzkuvp-Zqibdoaj-Umketwfkrm- goal oriented and able to Iflhntpplonbnz-Lmeaylr-Jhvqyqelnzxv- have insight that she needs Thought Blocking) stabilization and med management. But pt states that over the past 1-2 months she has been disorganized, tangential, cycling in her behaviors. Speech (Ormedb-Jgtr-Qlqoxyz-Rapid-Soft- Normal, soft spoken Loud-Pressured) Motor (Rcncxc-Vuglzemag-Vnzh-Other) normal, relaxed Insight (Kvem-Ynby-Iohy/Limited) Insight is good Judgement (Padg-Ityf-Epbt/Limited) Judgement currently good, prior to ED admit pt had limited judgement due to manic state Impulse Control (Adequate-Impaired) Impulse control impaired due to obsessive thoughts of suicidal ideation Memory (Azuumtvpg-Cvjuel-Hvcjyx, Immediate Impaired-Intact) Concentration (Intact-Impaired) Intact Attention (Intact-Impaired) Intact Behavior (Appropriate-Inappropriate) Appropriate, cooperative and calm and requesting support with stabilization Suicidal Ideation (Plan) Yes Homicidal Ideation (Plan) No Intervention INSTRUCTIONAL SYSTEMS DESIGN CONSULTANT met with pt in the ED and pt able to participate in goal directed discussion and confirms that she is established with Psychiatrist Dr. Clark for med management and a therapist for weekly support. Pt states she has done well for over a year but became manic without sleep at night and stopped her medications herself and declined in her ability to have good insight and judgement. Pt started herself back on her medications a few days ago without relief yet and has had ongoing obsessive thoughts of self harm and suicidal ideation. Pt has a hx of cutting for relief from her feelings but past few years rarely resorts to cutting and states that she has never needed stitches or medical care from her cuts before. Pt states she was attempting to get some sleep and decided to cut her arm for release/relief and cut deeper than she has in the past but not for the purpose of suicide . Pt states she realized after a couple deeper cuts that she would need medical attention and that she was not in a good place and came to the ED. INSTRUCTIONAL SYSTEMS DESIGN CONSULTANT discussed possible option of least restrictive plan of Crisis Respite or [facility] but pt states she cannot stop her obsessive thoughts of suicidal ideation and feels that she needs higher level of care to maintain safety and specifically for med management while she is back on her meds. Pt states that her past Inpt Hospitalizations have typically been brief but have helped her reset and stabilize to then d/c to the community to her outpt providers and move forward with her life. Pt requesting Inpt MH tx and does not feel safe with d/c to the community at this time. RA Plan INSTRUCTIONAL SYSTEMS DESIGN CONSULTANT updated MD and artificial inseminator and in agreement that pt would benefit from Inpt MH tx for med management and stabilization and not safe to d/c to community at this time. Per MD, pt medically cleared to d/c to Inpt MH tx and her sutures are bandaged but will not require wound care, antibiotics, and just regular washing/cleaning. INSTRUCTIONAL SYSTEMS DESIGN CONSULTANT to begin attempting to find bed availability for Inpt MH tx for the patient.
--- NOTE | 2021-05-12 11:16 | PC.NURSE ---
Patient is a very nice mood. very thankful for the help. Lunch has been ordered for the patient.
--- NOTE | 2021-05-12 11:30 | PC.NURSE ---
Checked on patient, asked her if her mom was coming to visit. Patient asked if once accepted to [place], would her mom be able to take her to that location. I did leave a note for someone to answer that question and asked the BIOSTATISTICS TEACHER if this was allowed, his understanding for [facility] or [facility]'s this was not allowed. Just let patient know, once we know the exact placement and time, we would get back to the patient about the answer.
--- NOTE | 2021-05-12 12:30 | PC.NURSE ---
Nurse in with patient, getting vitals.
--- NOTE | 2021-05-12 12:46 | PC.NURSE ---
Pt provided with lunch, consumed chips and cookie, states she is full. Water at bedside, offered other food/fluid, pt declined.
[2021-05-12 13:30] VITALS: BP 142/80; PULSE 94; RESP 16; O2SAT 99
[2021-05-12] MEDS: IBUPROFEN 400 MG TABLET 800 MG PO (14:34)
--- NOTE | 2021-05-12 15:02 | PC.NURSE ---
Checked in with pateint to see how she is doing and if she wanted anything to eat, drink and or warm blankets. She did want some food [place] EMS eta is 3:45pm.
[2021-05-12 15:48] VITALS: BP 125/80; PULSE 74; RESP 16; TEMP 36.6; O2SAT 97
== END 2021-05-12 15:50 | disposition short-term general hospital (02) ==
PROVIDERS: Emergency Medicine; Emergency Provider Emergency Medicine; PCP Family Medicine
DX: R45.851 Suicidal ideations (principal); F32.9 Major depressive disorder, single episode, unspecified; S51.812A Laceration without foreign body of left forearm, initial encounter; X78.9XXA Intentional self-harm by unspecified sharp object, initial encounter
CPT/HCPCS: 36415; 80053; 80305; 80320; 81003; 81025; 84443; 85025; 87635; 99284; C9803

== ENCOUNTER 2021-12-26 17:06 | Emergency (ER) | payer MEDICARE, MEDICAID, SELFPAY ==
[2020-11-24 10:17] VITALS: BMI 40.8
[2021-12-26 17:12] VITALS: BP 144/88; PULSE 87; RESP 20; TEMP 36.9; O2SAT 99
[2021-12-26 17:58] LABS: Acetaminophen < 10 ug/mL (10-30); Alanine Aminotransferase 44 IU/L (<35); Albumin 4.2 g/dL (3.5-5.0); Albumin Globulin Ratio 1.4 (1.0-2.8); Alkaline Phosphatase 70 U/L (38-126); Aspartate Aminotransferase 27 IU/L (14-36); BUN Creatinine Ratio 12.9 (6-22); Bilirubin Total 0.4 mg/dL (0.2-1.3); Blood Urea Nitrogen 11 mg/dL (7-17); Calcium 9.3 mg/dL (8.4-10.2); Carbon Dioxide 24 mmol/L (22-32); Chloride 105 mmol/L (98-107); Estimated Glomerular Filt Rate > 60 mL/min (>60); Ethanol (ETOH) < 10 mg/dL; Globulin 3.1 g/dL (1.7-4.1); Glucose 110 mg/dL (70-100); HEMOLYSIS < 15 (0-50); Potassium 4.2 mmol/L (3.4-5.1); Salicylate < 1.0 mg/dL (<20); Sodium 139 mmol/L (137-145); Total Protein 7.3 g/dL (6.3-8.2)
[2021-12-26 18:00] LABS: Add Manual Diff / Slide Review NO; Basophils Absolute Auto 100 /uL (0-100); Eosinophils Absolute Auto 600 /uL (0-450); Eosinophils Percent Auto 6.9 % (2-4); Hematocrit 36.9 % (36-46); Hemoglobin 12.1 g/dL (12.0-16.0); Lymphocytes Absolute Auto 1900 /uL (1100-4500); Lymphocytes Percent Auto 24.1 % (25-40); Mean Corpuscular HGB Conc 32.9 % (30-36); Mean Corpuscular Hemoglobin 24.2 PG (26-34); Mean Corpuscular Volume 73.7 fL (80-100); Monocytes Absolute Auto 600 /uL (0-900); Monocytes Percent Auto 7.8 % (3-14); Neutrophils Absolute Auto 4900 /uL (1500-7000); Neutrophils Percent Auto 60.2 % (50-75); Platelet Count 349 X10^3/uL (150-400); Red Blood Cell Count 5.01 X10^6/uL (4.0-5.2); Red Cell Distribution Width 13.6 % (11.6-14.8); White Blood Cell Count 8.1 X10^3/uL (4.5-11.0)
[2021-12-26 18:11] LABS: UR Morphine/Opiate cutoff 300 Negative (Negative); Ur Creatinine Normal (Normal); Ur Specific Gravity Normal (Normal); Urine Amphetamines Negative (Negative); Urine Barbiturates Negative (Negative); Urine Benzodiazepines Positive (Negative); Urine Cocaine Negative (Negative); Urine MDMA Negative (Negative); Urine Methadone Negative (Negative); Urine Methamphetamines Negative (Negative); Urine Oxycodone Negative (Negative); Urine Phencyclidine Negative (Negative); Urine Tetrahydrocannabinol Negative (Negative); Urine Tricyclic Antidepressant Positive (Negative); Urine pH Normal (Normal)
[2021-12-26 18:38] LABS: COVID19 -Nasal RAPID Negative (Negative)
[2021-12-26 18:38] LABS: Thyroid Stimulating Hormone 1.99 uIU/mL (0.47-4.68)
--- NOTE | 2021-12-26 19:16 | PC.NURSE ---
This FELT MACHINE MECHANIC removed meal tray from room, Dr. Moreno and patient's mother at Bedside.
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
--- NOTE | 2021-12-26 20:15 | PC.NURSE ---
report given to ASHLEY Henriquez @ [facility]
--- NOTE | 2021-12-26 20:26 | CM.SWNOTE ---
[facility] and [facility] had beds available for which they would screen patient. Clinicals faxed to both facilities. [facility] accepted pt for 7am admission 12/27. [facility]
[2021-12-26] MEDS: GABAPENTIN 100 MG CAPSULE 800 MG PO (20:33)
--- NOTE | 2021-12-26 20:41 | PC.NURSE ---
updated pt on plan of care
[2021-12-26] MEDS: lamoTRIgine 100 MG TABLET 200 MG PO (21:12)
[2021-12-26] MEDS: ZOLPIDEM 5 MG TABLET 10 MG PO (21:23)
--- NOTE | 2021-12-26 21:30 | PC.NURSE ---
pt laughing and joking, discussed with pt that if she felt she needed to hurt herself to notify this nurse first so we could talk about it pt verbalized understanding and agreed
--- NOTE | 2021-12-26 21:30 | PC.NURSE ---
pt updated on arrival time of transport
--- NOTE | 2021-12-26 22:20 | PC.NURSE ---
Pt. asleep in bed, respirations observed.
[2021-12-26 23:00] VITALS: BP 131/80; PULSE 80; RESP 18; O2SAT 99
--- NOTE | 2021-12-27 01:41 | PC.NURSE ---
Pt up multiple times to void in last few hours. Pt reports trouble sleeping. ar plugs provided to pt.
--- NOTE | 2021-12-27 02:16 | PC.NURSE ---
Pt in restroom for extended period of time. This RN asked if pt is alright and pt said she just wanted to sit for a bit and reports difficulty falling asleep. Pt requesting something else for sleep.
--- NOTE | 2021-12-27 02:33 | PC.NURSE ---
Pt checked on again in the restroom and stated she was ok. Pt soon came out of restroom and this RN was in room and saw pt right arm had superficial scratches on it. Pt endorsed self harm with her hospital wrist band. No active bleeding noted, no other trauma visible. engine maintenance mechanic and ER provider notified of this immediately. Pt wristband immediately taken away and bathroom to be locked and all pt activity supervised closely. Pt requesting to be unconscious until she is picked up for transfer tomorrow. Provider aware of this.
[2021-12-27] MEDS: LORazepam 0.5 MG TABLET 1 MG PO (02:46)
--- NOTE | 2021-12-27 02:46 | PC.NURSE ---
Pt also endorsed messing with the bottom of the door. Upon inspection, it looks like pt was attempting to removed the moveable hinge on the lower inside of the door. Pt was not successful with this and no parts appear to be missing from the door. With female RN, Patience, pt was patted down in search for anything pt could use to further harm herself. Stretcher, recliner, bedside table and pillow were removed from pt room for safety. Mattress was placed on the floor in this RN's visual field and pt informed the blankets must not cover her head. Pt right forarm cleansed with saline and pt refused any further wound care. Pt was given Ativan per OCT order from . Pt informed by charge nurse as well as other staff members that these measures are to promote pt safety.
[2021-12-27] MEDS: ACETAMINOPHEN 325 MG TABLET 650 MG PO (03:12)
--- NOTE | 2021-12-27 05:47 | PC.NURSE ---
Pt currently sleeping, snoring softly.
[2021-12-27 07:33] VITALS: BP 127/62; PULSE 80; RESP 16; O2SAT 100
--- NOTE | 2021-12-27 07:34 | PC.NURSE ---
Pt sitting against the wall on her mattress covered by a blanket. [place] was removed to check for safety and take VS. Pt given the blanket back and given a cup of coffee while we wait for breakfast. Pt is calm, pleasant, and very cooperative. Updated on the time of transport
--- NOTE | 2021-12-27 07:37 | PC.NURSE ---
[facility] called and updated with the new ambulance nut picker of [phone] with an ETA to them of [phone]
--- NOTE | 2021-12-27 08:04 | PC.NURSE ---
Pt resting. Resp even and unlabored.
--- NOTE | 2021-12-27 08:30 | PC.NURSE ---
Report givgen to Janice with [facility]
--- NOTE | 2021-12-27 08:35 | PC.NURSE ---
EMS given pt's green and yellow backpacks, shoes, and clothes
== END 2021-12-27 08:38 ==
PROVIDERS: Emergency Medicine; Emergency Provider Emergency Medicine; PCP Family Medicine
DX: R45.851 Suicidal ideations (principal); Z20.822 Contact with and (suspected) exposure to COVID-19
CPT/HCPCS: 36415; 80053; 80305; 80320; 80329; 81003; 81025; 84439; 84443; 85025; 87635; 99284; C9803; G0480

== ENCOUNTER 2023-09-20 02:38 | Observation (INO) | payer MEDICARE, MEDICAID, SELFPAY ==
[2020-11-24 10:17] VITALS: BMI 40.8
[2023-09-20] VITALS (32 sets, daily range): BP systolic 96–159; BP diastolic 52–77; PULSE 89–131; RESP 16–29; TEMP 36.2–38; O2SAT 95–100; BMI 40.5; BMI 41.4
--- NOTE | 2023-09-20 02:47 | ED.GENADULT ---
HPI - General Adult General Chief complaint: Shortness of Breath/Dyspnea Stated complaint: coughing/shaking x1 hour Time Seen by Provider: 09/20/23 02:43 History of Present Illness HPI narrative: [age] year old woman with a history of depression, mild asthma who awoke from sleep shivering to the point of rigors with cough and expiratory wheeze. She has some nausea notes she has had recent increased stressors but did not feel ill prior to going to bed. She notes that her asthma is mild enough that she is not sure where her MDI or spacer actually is. She describes no abdominal pain, constipation or diarrhea. No lower extremity edema. She has not having any palpitations and despite the rigors she has no temperature. Room air saturations are 95% and increased to 99% after DuoNeb. Related Data Home Medications Medication Instructions Recorded Confirmed alprazolam 1 mg tablet 2 mg PO BEDTIME ##0 05/05/17 09/20/23 gabapentin 600 mg tablet 1,200 mg PO BEDTIME 11/24/20 09/20/23 albuterol sulfate 90 mcg/actuation 2 inh inhalation Q6H PRN Shortness 09/20/23 09/20/23 breath activated powder inhaler Of Breath Or Wheezing cariprazine 3 mg capsule (Vraylar) 3 mg PO DAILY 09/20/23 09/20/23 cyclobenzaprine 10 mg tablet 10 mg PO 3XD PRN muscle spasm 09/20/23 09/20/23 hydroxyzine HCl 50 mg tablet 50 mg PO BID PRN Anxiety 09/20/23 09/20/23 lamotrigine 200 mg tablet 200 mg PO DAILY 09/20/23 09/20/23 lisdexamfetamine 60 mg capsule 60 mg PO DAILY 09/20/23 09/20/23 (Vyvanse) methocarbamol 500 mg tablet 500 mg PO BID PRN muscle spasm 09/20/23 09/20/23 omeprazole 40 mg capsule,delayed 40 mg PO DAILY 09/20/23 09/20/23 release ondansetron 8 mg disintegrating 8 mg PO Q8H PRN nausea/vomiting 09/20/23 09/20/23 tablet zolpidem 10 mg tablet 10 mg PO ONCE PM PRN Insomnia 09/20/23 09/20/23 Allergies Allergy/AdvReac Type Severity Reaction Status Date / Time Sulfa (Sulfonamide Allergy Intermediate RASH Verified 04/02/22 13:23 Antibiotics) [SULFA (SULFONAMIDE ANTIBIOTICS)] hydrocodone AdvReac Intermediate ITCHING Verified 04/02/22 13:23 Review of Systems Review of Systems Narrative: Pertinent positive and negative findings as per HPI Patient History Medical History Anxiety Bipolar disorder with depression Borderline personality disorder Degenerative disc disease, cervical History of alcoholism Menorrhagia Migraine headache with aura Suicide attempt (~2016) Suicide ideation (~06/2018) Surgical History H/O breast augmentation H/O section H/O tubal ligation History of endometrial ablation (02/01/19) History of tonsillectomy Hx of appendectomy (~02/26/20) Social History household members: family Smoking Status: Former smoker alcohol intake: former Smoking Status: Former smoker alcohol intake frequency: 0-2 drinks per day Substance Use Type: does not use Exam Narrative Exam Narrative: General: Appears to feel unwell but not acutely toxic. She is shivering and has audible expiratory wheeze but Able to give a complete and coherent history. Well-nourished well-developed HEENT: Moist mucous membranes, normal sclera with reactive pupils, Respiratory: Lungs with no rhonchi minimal lower lung field wheezing but notable expiratory wheeze particularly upper lung pedraza Cardiac: Regular rate and rhythm no murmurs no bruits Abdomen: Soft, nontender, good bowel tones, no flank pain Skin: Warm and dry, no rashes Neurologic: Grossly neurologically intact with no obvious asymmetries or abnormalities Extremities: No trauma, no lower extremity edema Psych: Cooperative, appropriate insight and affect Initial Vital Signs Initial Vital Signs: Vital Signs Temperature 97.8 F 09/20/23 02:40 Pulse Rate 131 H 09/20/23 02:40 Respiratory Rate 29 H 09/20/23 02:40 Blood Pressure 159/77 H 09/20/23 02:40 Pulse Oximetry 95 09/20/23 02:40 Oxygen Delivery Method Room Air 09/20/23 02:40 Course Orders Ordered: Discontinued Medications Acetaminophen (Acetaminophen 325 Mg Tablet) 650 mg PO Q6H PRN PRN Reason: Fever/Mild Pain (1-3) Last Admin: 09/20/23 18:05 Dose: 650 mg Documented By: Admin: 09/20/23 08:54 Dose: 650 mg Documented By: RB Albuterol/Ipratropium (Albuterol/Ipratropium 3 Ml Ampul) 3 ml INH NOW ONE Stop: 09/20/23 02:57 Last Admin: 09/20/23 03:04 Dose: 3 ml Documented By: MR Albuterol/Ipratropium (Albuterol/Ipratropium 3 Ml Ampul) 3 ml INH [id number] PRN PRN Reason: shortness of breath/wheezing Last Admin: 09/20/23 14:09 Dose: 3 ml Documented By: AVNI Alprazolam (Alprazolam 0.25 Mg Tablet) 2 mg PO BEDTIME COUNT INCLUDES THE [facility] Last Admin: 09/20/23 20:42 Dose: 2 mg Documented By: ANTONIO Azithromycin (Azithromycin 250 Mg Tablet) 500 mg PO Q24H COUNT INCLUDES THE [facility] Stop: 09/22/23 07:56 Last Admin: 09/21/23 08:35 Dose: 500 mg Documented By: Admin: 09/20/23 08:55 Dose: 500 mg Documented By: MELQUIADES Benzonatate (Benzonatate 100 Mg Capsule) 100 mg PO TID PRN PRN Reason: Cough Calcium Carbonate (Calcium Carbonate 500 Mg Tab) 500 mg PO Q2H PRN PRN Reason: Dyspepsia Last Admin: 09/20/23 20:41 Dose: 500 mg Documented By: ANTONIO Cyclobenzaprine HCl (Cyclobenzaprine 10 Mg Tablet) 10 mg PO TID PRN PRN Reason: Muscle Spasm Enoxaparin Sodium (Enoxaparin 40 Mg/0.4 Ml Syringe) 40 mg SUBCUT DAILY COUNT INCLUDES THE [facility] Last Admin: 09/20/23 08:55 Dose: 40 mg Documented By: RB Enoxaparin Sodium (Enoxaparin 40 Mg/0.4 Ml Syringe) 40 mg SUBCUT BID COUNT INCLUDES THE [facility] Last Admin: 09/21/23 08:35 Dose: 40 mg Documented By: Admin: 09/20/23 20:42 Dose: 40 mg Documented By: ANTONIO Fluoxetine HCl (Fluoxetine 20 Mg Capsule) 20 mg PO DAILY COUNT INCLUDES THE [facility] Last Admin: 09/20/23 09:00 Dose: Not Given Documented By: MELQUIADES Gabapentin (Gabapentin 600 Mg Tablet) 1,200 mg PO BEDTIME NGUYEN Gabapentin (Gabapentin 600 Mg Tablet) 600 mg PO TID NGUYEN Gabapentin (Gabapentin 600 Mg Tablet) 600 mg PO 0900,1500 COUNT INCLUDES THE [facility] Last Admin: 09/21/23 08:35 Dose: 600 mg Documented By: Admin: 09/20/23 16:41 Dose: 600 mg Documented By: DANIELLE Gabapentin (Gabapentin 600 Mg Tablet) 1,200 mg PO BEDTIME NGUYEN Last Admin: 09/20/23 20:41 Dose: 1,200 mg Documented By: ANTONIO Guaifenesin (Guaifenesin Er 600 Mg Tab) 600 mg PO BID NGUYEN Last Admin: 09/21/23 08:35 Dose: 600 mg Documented By: Admin: 09/20/23 20:41 Dose: 600 mg Documented By: Admin: 09/20/23 08:55 Dose: 600 mg Documented By: MELQUIADES Hydroxyzine HCl (Hydroxyzine Hcl 25 Mg Tablet) 50 mg PO BID PRN PRN Reason: Anxiety Sodium Chloride (Normal Saline 0.9%) 1,000 mls @ 1,000 mls/hr IV BOLUS ONE Stop: 09/20/23 06:16 Last Infusion: 09/20/23 06:36 Dose: Infused Documented By: Admin: 09/20/23 05:20 Dose: 1,000 mls/hr Documented By: Cefepime HCl 2 gm/ Sodium (Chloride) 100 mls @ 200 mls/hr IV NOW ONE Stop: 09/20/23 06:11 Last Infusion: 09/20/23 07:13 Dose: Infused Documented By: ELIZABET(2) Admin: 09/20/23 06:26 Dose: 200 mls/hr Documented By: Sodium Chloride (Normal Saline 0.9%) 1,848 mls @ 616 mls/hr 30 ml/kg infuse over 3 hr (1848 ml) IV NOW ONE Stop: 09/20/23 09:09 Last Admin: 09/20/23 07:24 Dose: Not Given Documented By: MELQUIADES Sodium Chloride (Normal Saline 0.9%) 1,000 mls @ 1,000 mls/hr IV BOLUS ONE Stop: 09/20/23 07:09 Last Infusion: 09/20/23 07:32 Dose: Infused Documented By: Admin: 09/20/23 06:26 Dose: 1,000 mls/hr Documented By: AB Sodium Chloride (Normal Saline 0.9%) 1,000 mls @ 150 mls/hr IV CONT NGUYEN Last Admin: 09/20/23 07:25 Dose: Not Given Documented By: RB Vancomycin HCl/Dextrose (Vancomycin) 2,000 mg in 400 mls @ 200 mls/hr IV NOW ONE Stop: 09/20/23 08:44 Last Infusion: 09/20/23 09:34 Dose: Infused Documented By: Admin: 09/20/23 07:33 Dose: 200 mls/hr Documented By: RB Vancomycin HCl (Vancomycin) 1,000 mg in 200 mls @ 200 mls/hr IV Q8H NGUYEN Last Infusion: 09/21/23 08:30 Dose: Infused Documented By: Admin: 09/21/23 07:29 Dose: 200 mls/hr Documented By: Infusion: 09/21/23 00:55 Dose: Infused Documented By: Admin: 09/20/23 23:55 Dose: 200 mls/hr Documented By: Infusion: 09/20/23 16:42 Dose: Infused Documented By: Admin: 09/20/23 15:08 Dose: 200 mls/hr Documented By: BT Sodium Chloride (Normal Saline 0.9%) 1,000 mls @ 100 mls/hr IV CONT NGUYEN Stop: 09/20/23 19:59 Last Infusion: 09/20/23 12:40 Dose: 0 mls/hr Documented By: Admin: 09/20/23 10:13 Dose: 100 mls/hr Documented By: RB Cefepime HCl 2 gm/ Sodium (Chloride) 100 mls @ 200 mls/hr IV Q12H NGUYEN Last Admin: 09/21/23 05:40 Dose: 200 mls/hr Documented By: Infusion: 09/20/23 18:29 Dose: Infused Documented By: Admin: 09/20/23 17:59 Dose: 200 mls/hr Documented By: BT Sodium Chloride (Normal Saline 0.9%) 1,000 mls @ 1,000 mls/hr IV BOLUS ONE Stop: 09/20/23 08:56 Last Infusion: 09/20/23 08:47 Dose: Infused Documented By: Admin: 09/20/23 08:00 Dose: 1,000 mls/hr Documented By: RB Sodium Chloride (Normal Saline 0.9%) 1,000 mls @ 1,000 mls/hr IV BOLUS ONE Stop: 09/20/23 09:20 Last Infusion: 09/20/23 10:12 Dose: Infused Documented By: Admin: 09/20/23 08:48 Dose: 1,000 mls/hr Documented By: RB Ibuprofen (Ibuprofen 600 Mg Tablet) 600 mg PO Q6H PRN PRN Reason: Fever/Mild Pain (1-3) Last Admin: 09/21/23 08:35 Dose: 600 mg Documented By: Admin: 09/20/23 13:10 Dose: 600 mg Documented By: DANIELLE Ketorolac Tromethamine (Ketorolac 30 Mg/Ml Vial) 15 mg IV NOW ONE Stop: 09/20/23 05:31 Last Admin: 09/20/23 05:33 Dose: 15 mg Documented By: Lamotrigine (Lamotrigine 100 Mg Tablet) 200 mg PO BEDTIME COUNT INCLUDES THE [facility] Last Admin: 09/20/23 20:41 Dose: 200 mg Documented By: ANTONIO Methocarbamol (Methocarbamol 500 Mg Tablet) 500 mg PO BID PRN PRN Reason: muscle spasm Last Admin: 09/20/23 13:09 Dose: 500 mg Documented By: DANIELLE Naloxone HCl (Naloxone 0.4 Mg/Ml Vial) 0.2 mg IV Q2MIN PRN PRN Reason: Opiate Reversal Nf (Cariprazine [ Vraylar] 3 Mg Capsule) 3 mg PO DAILY COUNT INCLUDES THE [facility] Last Admin: 09/20/23 09:44 Dose: Not Given Documented By: MELQUIADES Nf (Lisdexamfetamine [Vyvanse] 60 Mg Capsule) 60 mg PO DAILY COUNT INCLUDES THE [facility] Last Admin: 09/20/23 09:45 Dose: Not Given Documented By: MELQUIADES Nf (Cariprazine [ Vraylar] 3 Mg Capsule) 3 mg PO BEDTIME COUNT INCLUDES THE [facility] Last Admin: 09/20/23 20:52 Dose: 3 mg Documented By: ANTONIO Nf (Lisdexamfetamine [Vyvanse] 60 Mg Capsule) 60 mg PO BEDTIME COUNT INCLUDES THE [facility] Last Admin: 09/20/23 20:41 Dose: Not Given Documented By: ANTONIO Ondansetron HCl (Ondansetron 4 Mg/2 Ml Inj) 4 mg IV Q4HR PRN PRN Reason: Nausea And Vomiting Pantoprazole Sodium (Pantoprazole Dr 40 Mg Tablet) 40 mg PO 0600 NGUYEN Last Admin: 09/21/23 05:40 Dose: 40 mg Documented By: ANTONIO Polyethylene Glycol (Polyethylene Glycol 3350 17 Gm Powd.Pack) 17 gm PO DAILY PRN PRN Reason: Constipation Sennosides (Sennosides 8.6 Mg Tablet) 8.6 mg PO BID PRN PRN Reason: Constipation Vancomycin HCl (Vancomycin Per Pharmacy) 1 request MISC NOW ONE Stop: 09/20/23 06:12 Last Admin: 09/20/23 07:25 Dose: Not Given Documented By: MELQUIADES Vancomycin HCl (Vancomycin Trough) 1 request MIS 0630 ONE Stop: 09/21/23 06:31 Last Admin: 09/21/23 06:30 Dose: 1 request Documented By: ANTONIO Vancomycin HCl (Vancomycin Peak) 1 request MIS 0900 ONE Stop: 09/21/23 09:01 Last Admin: 09/21/23 09:45 Dose: 1 request Documented By: ELIZABET Zolpidem Tartrate (Zolpidem 5 Mg Tablet) 10 mg PO BEDTIME PRN PRN Reason: Insomnia Last Admin: 09/20/23 20:48 Dose: 10 mg Documented By: ANTONIO Vital Signs Vital signs: Vital Signs - 8 hr 09/20/23 02:40 09/20/23 03:11 09/20/23 03:14 Temperature 97.8 F Pulse Rate 131 H 125 H Respiratory Rate 29 H Blood Pressure 159/77 H 101/71 Pulse Oximetry 95 98 Oxygen Delivery Method Room Air 09/20/23 03:14 09/20/23 03:30 09/20/23 03:30 Temperature Pulse Rate 128 H 130 H Respiratory Rate Blood Pressure 131/70 Pulse Oximetry 99 99 Oxygen Delivery Method 09/20/23 04:00 09/20/23 04:00 09/20/23 04:30 Temperature Pulse Rate 127 H Respiratory Rate Blood Pressure 116/71 121/74 Pulse Oximetry 100 Oxygen Delivery Method 09/20/23 04:30 09/20/23 05:00 09/20/23 05:00 Temperature Pulse Rate 124 H 125 H Respiratory Rate Blood Pressure 115/68 Pulse Oximetry 97 97 Oxygen Delivery Method Medical Decision Making Lab Data 09/21/23 05:40 09/21/23 05:40 Labs: Lab Results 09/20/23 09/20/23 09/20/23 Range/Units 02:59 03:10 05:15 WBC 11.6 H (4.5-11.0) X10^3/uL RBC 5.70 H (4.0-5.2) X10^6/uL Hgb 13.2 (12.0-16.0) g/dL Hct 41.4 (36-46) % MCV 72.7 L (80-100) fL MCH 23.2 L (26-34) PG MCHC 32.0 (30-36) % RDW 14.3 (11.6-14.8) % Plt Count 324 (150-400) X10^3/uL Neut % (Auto) 90.3 H (50-75) % Lymph % (Auto) 7.1 L (25-40) % Boyle % (Auto) 1.5 L (3-14) % Eos % (Auto) 0.7 L (2-4) % Baso % (Auto) 0.4 (0-2) % Neut # (Auto) 52438 H (1703-7965) /uL Lymph # (Auto) 800 L (2868-7598) /uL Boyle # (Auto) 200 (0-900) /uL Eos # (Auto) 100 (0-450) /uL Baso # (Auto) 0 (0-100) /uL D-Dimer 1154 H (<500) ng/ml Sodium 139 (137-145) mmol/L Potassium 3.5 (3.4-5.1) mmol/L Chloride 104 (98-107) mmol/L Carbon Dioxide 25 (22-32) mmol/L BUN 14 (7-17) mg/dL Creatinine 0.92 (0.52-1.04) mg/dL Estimated GFR > 60 (>60) mL/min BUN/Creatinine Ratio 15.2 (6-22) Glucose 139 H (70-100) mg/dL Lactate 2.8 H 2.9 H (0.7-2.1) mmol/L Calcium 9.2 (8.4-10.2) mg/dL Magnesium 1.6 (1.6-2.3) mg/dL Total Bilirubin 0.6 (0.2-1.3) mg/dL AST 27 (14-36) IU/L ALT 30 (<35) IU/L Alkaline Phosphatase 78 (38-126) U/L Troponin I < 0.012 (0.01-0.034) ng/mL Total Protein 7.5 (6.3-8.2) g/dL Albumin 4.3 (3.5-5.0) g/dL Globulin 3.2 (1.7-4.1) g/dL Albumin/Globulin Ratio 1.3 (1.0-2.8) Procalcitonin 0.04 (<0.5) ng/mL Nasal Screen MRSA (PCR) (Not Detect) Chlamy pneumoniae PCR (Not Detect) Adenovirus (PCR) (Not Detect) B.parapertussis DNA PCR (Not Detecte) Coronavirus OC43 (PCR) (Not Detect) Coronavirus HKU1 (PCR) (Not Detect) Coronavirus 229E (PCR) (Not Detect) SARS-CoV-2 (PCR) (Not Detecte) Coronavirus NL63 (PCR) (Not Detect) Human Metapneumovir PCR (Not Detect) Influenza Type A (PCR) (Not Detect) Influenza Type B (PCR) (Not Detect) M. pneumoniae (PCR) (Not Detect) Parainfluenza 1 (PCR) (Not Detect) Parainfluenza 2 (PCR) (Not Detect) Parainfluenza 3 (PCR) (Not Detect) Parainfluenza 4 (PCR) (Not Detect) RSV (PCR) (Not Detect) Entero/Rhino (PCR) (Not Detect) 09/20/23 09/20/23 09/20/23 Range/Units 06:30 06:55 08:45 WBC (4.5-11.0) X10^3/uL RBC (4.0-5.2) X10^6/uL Hgb (12.0-16.0) g/dL Hct (36-46) % MCV (80-100) fL MCH (26-34) PG MCHC (30-36) % RDW (11.6-14.8) % Plt Count (150-400) X10^3/uL Neut % (Auto) (50-75) % Lymph % (Auto) (25-40) % Boyle % (Auto) (3-14) % Eos % (Auto) (2-4) % Baso % (Auto) (0-2) % Neut # (Auto) (8481-2489) /uL Lymph # (Auto) (0333-4152) /uL Boyle # (Auto) (0-900) /uL Eos # (Auto) (0-450) /uL Baso # (Auto) (0-100) /uL D-Dimer (<500) ng/ml Sodium (137-145) mmol/L Potassium (3.4-5.1) mmol/L Chloride (98-107) mmol/L Carbon Dioxide (22-32) mmol/L BUN (7-17) mg/dL Creatinine (0.52-1.04) mg/dL Estimated GFR (>60) mL/min BUN/Creatinine Ratio (6-22) Glucose (70-100) mg/dL Lactate 2.4 H (0.7-2.1) mmol/L Calcium (8.4-10.2) mg/dL Magnesium (1.6-2.3) mg/dL Total Bilirubin (0.2-1.3) mg/dL AST (14-36) IU/L ALT (<35) IU/L Alkaline Phosphatase (38-126) U/L Troponin I (0.01-0.034) ng/mL Total Protein (6.3-8.2) g/dL Albumin (3.5-5.0) g/dL Globulin (1.7-4.1) g/dL Albumin/Globulin Ratio (1.0-2.8) Procalcitonin (<0.5) ng/mL Nasal Screen MRSA (PCR) Not detected (Not Detect) Chlamy pneumoniae PCR Not detected (Not Detect) Adenovirus (PCR) Not detected (Not Detect) B.parapertussis DNA PCR Not detected (Not Detecte) Coronavirus OC43 (PCR) Not detected (Not Detect) Coronavirus HKU1 (PCR) Not detected (Not Detect) Coronavirus 229E (PCR) Not detected (Not Detect) SARS-CoV-2 (PCR) Not detected (Not Detecte) Coronavirus NL63 (PCR) Not detected (Not Detect) Human Metapneumovir PCR Not detected (Not Detect) Influenza Type A (PCR) Not detected (Not Detect) Influenza Type B (PCR) Not detected (Not Detect) M. pneumoniae (PCR) Not detected (Not Detect) Parainfluenza 1 (PCR) Not detected (Not Detect) Parainfluenza 2 (PCR) Not detected (Not Detect) Parainfluenza 3 (PCR) Not detected (Not Detect) Parainfluenza 4 (PCR) Not detected (Not Detect) RSV (PCR) Not detected (Not Detect) Entero/Rhino (PCR) Not detected (Not Detect) 09/20/23 Range/Units 11:05 WBC (4.5-11.0) X10^3/uL RBC (4.0-5.2) X10^6/uL Hgb (12.0-16.0) g/dL Hct (36-46) % MCV (80-100) fL MCH (26-34) PG MCHC (30-36) % RDW (11.6-14.8) % Plt Count (150-400) X10^3/uL Neut % (Auto) (50-75) % Lymph % (Auto) (25-40) % Boyle % (Auto) (3-14) % Eos % (Auto) (2-4) % Baso % (Auto) (0-2) % Neut # (Auto) (7767-1734) /uL Lymph # (Auto) (9614-2403) /uL Boyle # (Auto) (0-900) /uL Eos # (Auto) (0-450) /uL Baso # (Auto) (0-100) /uL D-Dimer (<500) ng/ml Sodium (137-145) mmol/L Potassium (3.4-5.1) mmol/L Chloride (98-107) mmol/L Carbon Dioxide (22-32) mmol/L BUN (7-17) mg/dL Creatinine (0.52-1.04) mg/dL Estimated GFR (>60) mL/min BUN/Creatinine Ratio (6-22) Glucose (70-100) mg/dL Lactate 1.9 (0.7-2.1) mmol/L Calcium (8.4-10.2) mg/dL Magnesium (1.6-2.3) mg/dL Total Bilirubin (0.2-1.3) mg/dL AST (14-36) IU/L ALT (<35) IU/L Alkaline Phosphatase (38-126) U/L Troponin I (0.01-0.034) ng/mL Total Protein (6.3-8.2) g/dL Albumin (3.5-5.0) g/dL Globulin (1.7-4.1) g/dL Albumin/Globulin Ratio (1.0-2.8) Procalcitonin (<0.5) ng/mL Nasal Screen MRSA (PCR) (Not Detect) Chlamy pneumoniae PCR (Not Detect) Adenovirus (PCR) (Not Detect) B.parapertussis DNA PCR (Not Detecte) Coronavirus OC43 (PCR) (Not Detect) Coronavirus HKU1 (PCR) (Not Detect) Coronavirus 229E (PCR) (Not Detect) SARS-CoV-2 (PCR) (Not Detecte) Coronavirus NL63 (PCR) (Not Detect) Human Metapneumovir PCR (Not Detect) Influenza Type A (PCR) (Not Detect) Influenza Type B (PCR) (Not Detect) M. pneumoniae (PCR) (Not Detect) Parainfluenza 1 (PCR) (Not Detect) Parainfluenza 2 (PCR) (Not Detect) Parainfluenza 3 (PCR) (Not Detect) Parainfluenza 4 (PCR) (Not Detect) RSV (PCR) (Not Detect) Entero/Rhino (PCR) (Not Detect) MDM Narrative Medical decision making narrative: CC: Rigors with audible wheeze onset 1 hour Complicating co-morbidities: History of mild intermittent asthma, prior psychiatric issues Data collected from: patient Medical records reviewed: Prior urgent care and ER visit notes reviewed Differential considered: Acute viral syndrome, asthma attack, pulmonary embolism, aspiration, pneumonia, sepsis Exam documented above, pertinent findings include: Speaking in full sentences with audible expiratory wheeze. Minimal abnormal lower lung findings. No edema no abdominal pain Lab Test results independently reviewed as above. Pertinent findings: CBC shows mild leukocytosis at 11.6. No significant anemia Chemistries show no kidney, liver abnormalities with reassuring electrolytes Lactic acid is slightly elevated at 2.8, prior to any fluid resuscitation lactic acid is repeated and is at 2.9 Troponin is undetectable D-dimer is significantly elevated at 1154 Independently reviewed EKG: EKG shows sinus tachycardia at a rate of 22 with a short MN interval, no acute ischemic changes but nonspecific STT wave abnormalities are appreciated Imaging studies independently reviewed: Chest x-ray shows mild hyperinflation, question of the developing right-sided pneumonia question of a pulmonary nodule in the right upper field. We will await official radiology read CT for PE study does not show central pulmonary embolism, does show patchy infiltrates was in the right upper middle and lower lobes Treatments: 1 L of fluid, IV Toradol, DuoNeb 615 CT scan shows right-sided bacterial pneumonia. Will add antibiotic coverage in the form of cefepime and vanco as her lactic acid is elevated. We will repeat lactic acid after fluid resuscitation Discussion: 620 a.m.. Initial impression was that of a viral pneumonia. Chest x-ray and CT scan suggest right-sided bacterial pneumonia with tachycardia and increasing lactic acid but no evidence of hypoxia. No evidence of pulmonary embolism. Concern for developing sepsis. Discussed with patient. Wheezing is improved, she is beginning to develop a fever. Remains significantly tachycardic, tachypneic and blood pressure has decreased from initial high of 159/77 to current of 115/68. Reviewed my concerns and recommendations for hospitalization. She understands that antibiotics are being started, fluids are being given, repeat lactic acid after 2 L of fluid are in. Respiratory panel added for completeness of workup. Will discuss with the hospitalist service Additional Information: Severe Sepsis Criteria [x ] bacterial source of infection suspected and documented at 620 am [ ] 2 SIRS Criteria met [x ] HR >90 [ x ] RR >20 [ ] fever or hypothermia [x ] leukocytosis/leukopenia/bandemia [ ] Evidence of at least 1 organ system dysfunction [ x ] Lactate > 2 [ ] BP < 90 or MAP <65, >40mm decrease from normal baseline [ ] Creat > 2.0 [ ] T. Bili > 2.0 [ ] platelet count < 100k [ ] altered mental status [ ] mechanical ventilation [ ] provider documentation of severe sepsis Severe Sepsis Determination. the patient has been screened and [ x ] DOES meet criteria for severe sepsis [ ] DOES NOT meet criteria for severe sepsis Goal directed treatment Within 3 hours [ x ] blood cx drawn prior to abx [ x ] broad spectrum abx started [x ] lactic acid level checked [ x ] lactic redrawn within 6 hours if >2.0 Septic Shock Criteria [ ] lactic > 4 at any time [ ] SBP ,90 or MAP , 65 [ ] documentation of septic shock Time Septic Shock diagnosed: [ ] Septic Shock Determination. the patient has been screened and [ ] DOES meet criteria for septic shock [x ] DOES NOT meet criteria for septic shock Goal directed therapy within 3 hours of septic shock or initial hypotension [ x ] 30ml/kg fluid [ ] ABW used [ x] IBW (33.6) used due to BMI > 30 [ ] patient or advocate declining fluid administration after shared decision making conversation Clinical reason for NOT initiating fluid bolus: Within 6 hours (if continued hypotension after fluids or initial lactate >4) [ ] repeat volume status and tissue perfusion assessment documented after fluid bolus was completed at [Date/Time] Must include vital signs, cardiopulmonary exam, capillary refill, peripheral pulse evaluation, skin exam [ ] Initiate vasopressor therapy if persistent hypotension after adequate fluid bolus Discharge Plan Departure Patient Disposition: Admitted as Observation Clinical Impression: Pneumonia Qualifiers: Pneumonia type: due to unspecified organism Laterality: right Lung location: unspecified part of lung Qualified Code(s): J18.9 - Pneumonia, unspecified organism Sepsis Qualifiers: Sepsis type: sepsis due to unspecified organism Sepsis acute organ dysfunction status: unspecified Qualified Code(s): A41.9 - Sepsis, unspecified organism Admit Date/Time: 09/20/23 12:31 Admit Provider: Yefri Woodward
--- NOTE | 2023-09-20 02:58 | DI.RAD.S_ITS ---
PROCEDURE: XR CHEST 1V INDICATIONS: cough TECHNIQUE: One view of the chest was acquired. COMPARISON: [facility], CR, XR CHEST 1 VIEW, 05/25/2019, 12:37. [facility], CT, CT ANGIO CHEST PE PROTOCOL, 09/20/2023, 4:06. FINDINGS: Surgical changes and devices: None. Lungs and pleura: An incomplete inspiratory result is noted, causing a crowded appearance to the lung markings. No focal infiltrates are seen. Minimal generalized interstitial prominence can be seen. No pneumothorax or significant pleural effusions are seen. Mediastinum: Mediastinal contours appear normal. Heart size is normal. Bones and chest wall: No suspicious bony lesions. Overlying soft tissues appear unremarkable. IMPRESSION: Minimal right lung interstitial prominence can be seen. (On the central performed CT examination, this patient is demonstrated to have poorly defined right lung infiltrate.) Note: No significant discrepancy from the preliminary report. Dictated by: Ronald Galvan M.D. on 09/20/2023 at 9:24 Approved by: Ronald Galvan M.D. on 09/20/2023 at 9:26
[2023-09-20] MEDS: ALBUTEROL/IPRATROPIUM 3 ML AMPUL INH ×2 (03:04→14:09)
[2023-09-20 03:23] LABS: Add Manual Diff / Slide Review NO; Basophils Absolute Auto 0 /uL (0-100); Basophils Percent Auto 0.4 % (0-2); Eosinophils Absolute Auto 100 /uL (0-450); Eosinophils Percent Auto 0.7 % (2-4); Hematocrit 41.4 % (36-46); Hemoglobin 13.2 g/dL (12.0-16.0); Lymphocytes Absolute Auto 800 /uL (1100-4500); Lymphocytes Percent Auto 7.1 % (25-40); Mean Corpuscular Hemoglobin 23.2 PG (26-34); Mean Corpuscular Volume 72.7 fL (80-100); Monocytes Absolute Auto 200 /uL (0-900); Monocytes Percent Auto 1.5 % (3-14); Neutrophils Absolute Auto 10500 /uL (1500-7000); Neutrophils Percent Auto 90.3 % (50-75); Platelet Count 324 X10^3/uL (150-400); Red Cell Distribution Width 14.3 % (11.6-14.8); White Blood Cell Count 11.6 X10^3/uL (4.5-11.0)
[2023-09-20 03:35] LABS: D Dimer 1154 ng/ml (<500)
[2023-09-20 03:38] LABS: Alanine Aminotransferase 30 IU/L (<35); Albumin 4.3 g/dL (3.5-5.0); Albumin Globulin Ratio 1.3 (1.0-2.8); Alkaline Phosphatase 78 U/L (38-126); Aspartate Aminotransferase 27 IU/L (14-36); BUN Creatinine Ratio 15.2 (6-22); Bilirubin Total 0.6 mg/dL (0.2-1.3); Blood Urea Nitrogen 14 mg/dL (7-17); Calcium 9.2 mg/dL (8.4-10.2); Carbon Dioxide 25 mmol/L (22-32); Chloride 104 mmol/L (98-107); Estimated Glomerular Filt Rate > 60 mL/min (>60); Globulin 3.2 g/dL (1.7-4.1); Glucose 139 mg/dL (70-100); HEMOLYSIS < 15 (0-50); Lactate (Lactic Acid) 2.8 mmol/L (0.7-2.1); Potassium 3.5 mmol/L (3.4-5.1); Sodium 139 mmol/L (137-145); Total Protein 7.5 g/dL (6.3-8.2)
[2023-09-20 03:49] LABS: Troponin I < 0.012 ng/mL (0.01-0.034)
--- NOTE | 2023-09-20 03:51 | DI.CT.S_ITS ---
PROCEDURE: CT ANGIO CHEST PE PROTOCOL INDICATIONS: Acute respiratory distress, elevated D-dimer TECHNIQUE: After the administration of intravenous contrast, 2 mm thick sections acquired from the pulmonary apices to the posterior costophrenic angles. 3-dimensional maximum intensity projection (MIP) coronal and sagittal reformats were then acquired through the thorax. For radiation dose reduction, the following was used: automated exposure control, adjustment of mA and/or kV according to patient size. COMPARISON: [facility], CR, XR CHEST 1V, 09/20/2023, 2:59. [facility], CT, CT KUB, 08/12/2023, 15:40. FINDINGS: Image quality: Limited by bolus timing. Pulmonary arteries: The bolus of the contrast injection is suboptimal. The main pulmonary artery measures approximately 80 Hounsfield units. Pulmonary artery densities are greater than 250 Hounsfield units are considered to be ideal for evaluation of pulmonary embolism. However, no large or central pulmonary emboli are seen on these images. No pulmonary emboli are seen more distally, although sensitivity for detection of such is limited on this study. Lower Neck: No enlarged lymph nodes. Thyroid: No thyroid nodules which require sonographic follow up, per consensus guidelines. Axillae: No enlarged lymph nodes. Chest Wall: Collapsed mammoplasty implants can be seen. Bones: Unremarkable. Lungs and Pleura: Poorly defined infiltrate can be seen involving the right upper lobe and right lower lobe, with a mild degree of involvement of the right middle lobe. The left lung appears clear. No pneumothorax or pleural effusions are seen. The central airways are patent. Heart: Heart size is normal. No pericardial effusion. Thoracic Vessels: No aortic aneurysm. Negative for aortic dissection. Mediastinum and [place]: No enlarged lymph nodes. Esophagus: No wall thickening. No hiatal hernia. Upper Abdomen: Cholecystectomy clips are seen. Visualized upper abdomen solid organs and bowel loops appear normal. IMPRESSION: This study is limited by bolus timing, yet without a large or central pulmonary embolism seen. Aortic dissection or aneurysm can be seen. Poorly defined infiltrate can be seen throughout the right lung. Please consider a follow-up noncontrast chest CT in 3 months to assure resolution. Additional findings: Collapsed mammoplasty implants Cholecystectomy Note: No significant discrepancy from the preliminary report. Dictated by: Ronald Galvan M.D. on 09/20/2023 at 9:27 Approved by: Ronald Galvan M.D. on 09/20/2023 at 9:30
[2023-09-20 05:00] LABS: Reflexed Lactate in 2 Hours Y
[2023-09-20] MEDS: SODIUM CHLORIDE 0.9% 1,000 ML 1000 ML IV ×4 (05:20→08:48)
[2023-09-20] MEDS: KETOROLAC 30 MG/ML VIAL 15 MG IV (05:33)
[2023-09-20 05:36] LABS: Lactate 2HR (Lactic Acid Rflx) 2.9 mmol/L (0.7-2.1)
[2023-09-20] MEDS: CEFEPIME 2 GM in SODIUM CHLORIDE 0.9% 100 ML IV ×2 (06:26→17:59)
[2023-09-20 07:30] LABS: Adenovirus Not Detected (Not Detect); B. parapertussis Not Detected (Not Detecte); Bordetella pertussis Not Detected (Not Detect); Chlamydophila pneumoniae Not Detected (Not Detect); Coronavirus 229E Not Detected (Not Detect); Coronavirus HKU1 Not Detected (Not Detect); Coronavirus NL 63 Not Detected (Not Detect); Coronavirus OC43 Not Detected (Not Detect); Human Metapneumovirus Not Detected (Not Detect); Human Rhinovirus/Enterovirus Not Detected (Not Detect); Influenza A Not Detected (Not Detect); Influenza B Not Detected (Not Detect); Mycoplasma pneumoniae Not Detected (Not Detect); Parainfluenza Virus 1 Not Detected (Not Detect); Parainfluenza Virus 2 Not Detected (Not Detect); Parainfluenza Virus 3 Not Detected (Not Detect); Parainfluenza Virus 4 Not Detected (Not Detect); Respiratory Syncytial Virus Not Detected (Not Detect); SARS- CoV-2 Not Detected (Not Detecte)
[2023-09-20] MEDS: VANCOMYCIN 2,000 MG/400 ML PIGGYBACK 200 MG IV (07:33)
--- NOTE | 2023-09-20 07:49 | P.HP_ITS ---
History of Present Illness History of Present Illness Date Patient Seen: 09/20/23 Chief complaint: coughing/shaking x1 hour Narrative: Avis Vazquez is a 48yo F with PMH of SI, anxiety, bipolar, and morbid obesity who presents with cough, wheezing and SOB. Patient notes she was up coughing overnight and then at 0100 she woke up with fever, chills and teeth- chattering. She continued to feel worse so came to the ED. In the ED patient found to have pneumonia so started on IV abx. Also with leukocytosis, tachycardia, RR 20 and lactic acid of 2.9. Received 2L NS and LA now improved to 1.9. Patient now on the floor and says she feels alot better. She no longer has chills or feels febrile. Breathing is improving. She denies CP, NV, abd pain or diarrhea. [facility] Medical History Anxiety Bipolar disorder with depression Borderline personality disorder Degenerative disc disease, cervical History of alcoholism Menorrhagia Migraine headache with aura Suicide attempt (~2016) Suicide ideation (~06/2018) Surgical History H/O breast augmentation H/O section H/O tubal ligation History of endometrial ablation (02/01/19) History of tonsillectomy Hx of appendectomy (~02/26/20) Social History household members: family Smoking Status: Former smoker alcohol intake: former Meds Home Medications and Allergies Home Medications Medication Instructions Recorded Confirmed Type alprazolam 1 mg tablet 2 mg PO BEDTIME ##0 05/05/17 09/20/23 History gabapentin 600 mg tablet 1,200 mg PO BEDTIME 11/24/20 09/20/23 History albuterol sulfate 90 mcg/actuation 2 inh inhalation Q6H PRN Shortness 09/20/23 09/20/23 History breath activated powder inhaler Of Breath Or Wheezing cariprazine 3 mg capsule (Vraylar) 3 mg PO DAILY 09/20/23 09/20/23 History cyclobenzaprine 10 mg tablet 10 mg PO 3XD PRN muscle spasm 09/20/23 09/20/23 History hydroxyzine HCl 50 mg tablet 50 mg PO BID PRN Anxiety 09/20/23 09/20/23 History lamotrigine 200 mg tablet 200 mg PO DAILY 09/20/23 09/20/23 History lisdexamfetamine 60 mg capsule 60 mg PO DAILY 09/20/23 09/20/23 History (Vyvanse) methocarbamol 500 mg tablet 500 mg PO BID PRN muscle spasm 09/20/23 09/20/23 History omeprazole 40 mg capsule,delayed 40 mg PO DAILY 09/20/23 09/20/23 History release ondansetron 8 mg disintegrating 8 mg PO Q8H PRN nausea/vomiting 09/20/23 09/20/23 History tablet zolpidem 10 mg tablet 10 mg PO ONCE PM PRN Insomnia 09/20/23 09/20/23 History Allergies Allergy/AdvReac Type Severity Reaction Status Date / Time Sulfa (Sulfonamide Allergy Intermediate RASH Verified 04/02/22 13:23 Antibiotics) [SULFA (SULFONAMIDE ANTIBIOTICS)] hydrocodone AdvReac Intermediate ITCHING Verified 04/02/22 13:23 Review of Systems Review of Systems Narrative: All other systems reviewed with the patient and are negative unless otherwise stated. Exam Vital Signs (past 8 hours): - 09/20/23 02:40 09/20/23 03:11 09/20/23 03:14 Temperature 97.8 F Pulse Rate 131 H 125 H Respiratory Rate 29 H Blood Pressure 159/77 H 101/71 Pulse Oximetry 95 98 Oxygen Delivery Method Room Air 09/20/23 03:14 09/20/23 03:30 09/20/23 03:30 Temperature Pulse Rate 128 H 130 H Respiratory Rate Blood Pressure 131/70 Pulse Oximetry 99 99 Oxygen Delivery Method 09/20/23 04:00 09/20/23 04:00 09/20/23 04:30 Temperature Pulse Rate 127 H Respiratory Rate Blood Pressure 116/71 121/74 Pulse Oximetry 100 Oxygen Delivery Method 09/20/23 04:30 09/20/23 05:00 09/20/23 05:00 Temperature Pulse Rate 124 H 125 H Respiratory Rate Blood Pressure 115/68 Pulse Oximetry 97 97 Oxygen Delivery Method 09/20/23 05:30 09/20/23 05:30 09/20/23 06:00 Temperature Pulse Rate 122 H 119 H Respiratory Rate Blood Pressure 102/62 Pulse Oximetry 97 99 Oxygen Delivery Method 09/20/23 06:00 09/20/23 06:30 09/20/23 06:30 Temperature Pulse Rate 124 H Respiratory Rate Blood Pressure 109/60 97/58 L Pulse Oximetry 96 Oxygen Delivery Method 09/20/23 07:00 09/20/23 07:00 09/20/23 07:30 Temperature Pulse Rate 120 H Respiratory Rate Blood Pressure 101/58 L 96/63 Pulse Oximetry 95 Oxygen Delivery Method 09/20/23 07:30 Temperature Pulse Rate 121 H Respiratory Rate Blood Pressure Pulse Oximetry 97 Oxygen Delivery Method Oxygen Delivery Method Room Air Narrative Exam Narrative: GEN: no acute distress HEENT: moist mucous membranes, PERRL NECK: trachea midline, no JVD CV: regular rate and rhythm, no murmurs PULM: clear bilaterally ABD: soft, nontender, nondistended, no organomegaly EXT: warm and well perfused with no edema NEURO: awake, alert, oriented, no focal deficits Objective Labs 09/20/23 03:10 09/20/23 03:10 Labs: Laboratory Results - last 24 hr 09/20/23 09/20/23 09/20/23 03:10 05:15 06:30 WBC 11.6 H RBC 5.70 H Hgb 13.2 Hct 41.4 MCV 72.7 L MCH 23.2 L MCHC 32.0 RDW 14.3 Plt Count 324 Neut % (Auto) 90.3 H Lymph % (Auto) 7.1 L [place] % (Auto) 1.5 L Eos % (Auto) 0.7 L Baso % (Auto) 0.4 Neut # (Auto) 04536 H Lymph # (Auto) 800 L [place] # (Auto) 200 Eos # (Auto) 100 Baso # (Auto) 0 D-Dimer 1154 H Sodium 139 Potassium 3.5 Chloride 104 Carbon Dioxide 25 BUN 14 Creatinine 0.92 Estimated GFR > 60 BUN/Creatinine Ratio 15.2 Glucose 139 H Lactate 2.8 H 2.9 H Calcium 9.2 Total Bilirubin 0.6 AST 27 ALT 30 Alkaline Phosphatase 78 Troponin I < 0.012 Total Protein 7.5 Albumin 4.3 Globulin 3.2 Albumin/Globulin Ratio 1.3 Chlamy pneumoniae PCR Not detected Adenovirus (PCR) Not detected B.parapertussis DNA PCR Not detected Coronavirus OC43 (PCR) Not detected Coronavirus HKU1 (PCR) Not detected Coronavirus 229E (PCR) Not detected SARS-CoV-2 (PCR) Not detected Coronavirus NL63 (PCR) Not detected Human Metapneumovir PCR Not detected Influenza Type A (PCR) Not detected Influenza Type B (PCR) Not detected M. pneumoniae (PCR) Not detected Parainfluenza 1 (PCR) Not detected Parainfluenza 2 (PCR) Not detected Parainfluenza 3 (PCR) Not detected Parainfluenza 4 (PCR) Not detected RSV (PCR) Not detected Entero/Rhino (PCR) Not detected Assessment & Plan Assessment & Plan narrative: # sepsis 2/2 pneumonia -right-sided lung infiltrate on imaging, febrile to 100.4F, WBC 11.6, LA 2.9 -continue cefepime and vanc -LA now normalized after 2L fluids -patient improving quickly, feels breathing and chills are now almost resolved # lactic acidemia, resolved -lactic acid 2.9 on admission -LA now 1.9 # anxiety and bipolar disorder -continue alprazolam and lamotrigine -no longer on prozac # insomnia -continue Ambien as needed # morbid obesity -BMI 40 Code status is full code. DVT prophylaxis with Lovenox. Proxy is mother Annika. I have reviewed home meds and used all available resources to reconcile the home meds. Case discussed with ED physician/APC and patient will be admitted to the hospitalist service for further workup and management. This patient will be admitted as inpatient and will require greater than 2 midnights of hospital time to treat sepsis and pneumonia.
[2023-09-20] MEDS: ACETAMINOPHEN 325 MG TABLET 650 MG PO ×2 (08:54→18:05)
[2023-09-20] MEDS: AZITHROMYCIN 250 MG TABLET 500 MG PO (08:55)
[2023-09-20] MEDS: ENOXAPARIN 40 MG/0.4 ML SYRINGE SUBCUT ×2 (08:55→20:42)
[2023-09-20] MEDS: guaiFENesin ER 600 MG TAB PO ×2 (08:55→20:41)
[2023-09-20 09:06] LABS: Magnesium 1.6 mg/dL (1.6-2.3)
[2023-09-20 09:24] LABS: Procalcitonin 0.04 ng/mL (<0.5)
[2023-09-20 09:35] LABS: MRSA (Nasal) PCR Not Detected (Not Detect)
[2023-09-20 10:10] LABS: Lactate (Lactic Acid) 2.4 mmol/L (0.7-2.1)
[2023-09-20] MEDS: SODIUM CHLORIDE 0.9% 1,000 ML 100 ML IV (10:13)
[2023-09-20 10:48] LABS: Reflexed Lactate in 2 Hours Y
--- NOTE | 2023-09-20 11:23 | PC.NURSE ---
This RN called Dr. Woodward due to chest CTA report having statement Aortic dissection or aneurysm can be seen within the impression. This RN wanted to clarify if this was actually supposed to have the word no in front of the statement. Provider informed me that he would call the radiologist for followup for potential addendum or clarification.
[2023-09-20 11:36] LABS: Lactate 2HR (Lactic Acid Rflx) 1.9 mmol/L (0.7-2.1)
[2023-09-20] MEDS: methocarbamoL 500 MG TABLET PO (13:09)
[2023-09-20] MEDS: IBUPROFEN 600 MG TABLET PO (13:10)
[2023-09-20] MEDS: VANCOMYCIN 1,000 MG/200 ML PIGGYBACK 200 MG IV ×2 (15:08→23:55)
[2023-09-20] MEDS: GABAPENTIN 600 MG TABLET PO (16:41)
[2023-09-20] MEDS: lamoTRIgine 100 MG TABLET 200 MG PO (20:41)
[2023-09-20] MEDS: GABAPENTIN 600 MG TABLET 1200 MG PO (20:41)
[2023-09-20] MEDS: CALCIUM CARBONATE 500 MG TAB PO (20:41)
[2023-09-20] MEDS: ALPRAZolam 0.25 MG TABLET 2 MG PO (20:42)
[2023-09-20] MEDS: ZOLPIDEM 5 MG TABLET 10 MG PO (20:48)
[2023-09-20] MEDS: CARIPRAZINE 3 MG 3 EACH PO (20:52)
[2023-09-21] VITALS: BP 121/68; PULSE 91; RESP 18; TEMP 36.8; O2SAT 97
[2023-09-21 04:00] VITALS: BP 107/52; PULSE 86; RESP 18; TEMP 36.4; O2SAT 99
[2023-09-21] MEDS: CEFEPIME 2 GM in SODIUM CHLORIDE 0.9% 100 ML IV (05:40)
[2023-09-21] MEDS: PANTOPRAZOLE DR 40 MG TABLET PO (05:40)
[2023-09-21 05:58] LABS: Add Manual Diff / Slide Review NO; Basophils Absolute Auto 0 /uL (0-100); Basophils Percent Auto 0.3 % (0-2); Eosinophils Absolute Auto 500 /uL (0-450); Eosinophils Percent Auto 5.5 % (2-4); Hemoglobin 10.2 g/dL (12.0-16.0); Lymphocytes Absolute Auto 1100 /uL (1100-4500); Lymphocytes Percent Auto 11.1 % (25-40); Mean Corpuscular HGB Conc 32.8 % (30-36); Mean Corpuscular Hemoglobin 23.7 PG (26-34); Mean Corpuscular Volume 72.2 fL (80-100); Monocytes Absolute Auto 300 /uL (0-900); Monocytes Percent Auto 3.2 % (3-14); Neutrophils Absolute Auto 7600 /uL (1500-7000); Neutrophils Percent Auto 79.9 % (50-75); Platelet Count 237 X10^3/uL (150-400); Red Blood Cell Count 4.29 X10^6/uL (4.0-5.2); Red Cell Distribution Width 14.5 % (11.6-14.8); White Blood Cell Count 9.4 X10^3/uL (4.5-11.0)
[2023-09-21 06:04] LABS: BUN Creatinine Ratio 10.3 (6-22); Blood Urea Nitrogen 7 mg/dL (7-17); Calcium 8.2 mg/dL (8.4-10.2); Carbon Dioxide 24 mmol/L (22-32); Chloride 110 mmol/L (98-107); Estimated Glomerular Filt Rate > 60 mL/min (>60); Glucose 101 mg/dL (70-100); HEMOLYSIS < 15 (0-50); Potassium 3.8 mmol/L (3.4-5.1); Sodium 140 mmol/L (137-145)
[2023-09-21 06:20] LABS: Procalcitonin 4.39 ng/mL (<0.5)
[2023-09-21] MEDS: VANCOMYCIN TROUGH 1 REQUEST MISC (06:30)
[2023-09-21 06:55] LABS: Vancomycin Trough 12.8 ug/mL (10-20)
[2023-09-21] MEDS: VANCOMYCIN 1,000 MG/200 ML PIGGYBACK 200 MG IV (07:29)
[2023-09-21 08:00] VITALS: BP 116/60; PULSE 84; RESP 16; TEMP 36.2; O2SAT 97
[2023-09-21] MEDS: ENOXAPARIN 40 MG/0.4 ML SYRINGE SUBCUT (08:35)
[2023-09-21] MEDS: IBUPROFEN 600 MG TABLET PO (08:35)
[2023-09-21] MEDS: GABAPENTIN 600 MG TABLET PO (08:35)
[2023-09-21] MEDS: guaiFENesin ER 600 MG TAB PO (08:35)
[2023-09-21] MEDS: AZITHROMYCIN 250 MG TABLET 500 MG PO (08:35)
[2023-09-21] MEDS: VANCOMYCIN PEAK 1 REQUEST MISC (09:45)
[2023-09-21 10:33] LABS: Vancomycin Peak 21.2 ug/mL (20-40)
--- NOTE | 2023-09-21 11:46 | PM.DS.1 ---
History of Present Illness History of Present Illness Chief complaint: coughing/shaking x1 hour Narrative: Avis Vazquez is a 48yo F with PMH of SI, anxiety, bipolar, and morbid obesity who presents with cough, wheezing and SOB. Patient notes she was up coughing overnight and then at 0100 she woke up with fever, chills and teeth-chattering. She continued to feel worse so came to the ED. In the ED patient found to have pneumonia so started on IV abx. Also with leukocytosis, tachycardia, RR 20 and lactic acid of 2.9. Received 2L NS and LA now improved to 1.9. Patient now on the floor and says she feels alot better. She no longer has chills or feels febrile. Breathing is improving. She denies CP, NV, abd pain or diarrhea. Discharge Providers Provider Date of admission: 09/20/23 12:31 Discharge Date: 09/21/23 Primary care physician: Avis Motta MD Discharge provider: Yefri Woodward DO Summary Hospital Course Discharge Diagnosis: # sepsis 2/2 pneumonia, sepsis resolved -right-sided lung infiltrate on imaging, febrile to 100.4F, WBC 11.6, LA 2.9 -continue cefepime, vanc and azithro -LA now normalized after 2L fluids, fevers and leukocytosis resolved -patient improving quickly, feels breathing and chills are now resolved -discharged on po azithro and augmentin # lactic acidemia, resolved -lactic acid 2.9 on admission -LA now 1.9 # anxiety and bipolar disorder -continue alprazolam and lamotrigine -no longer on prozac # insomnia -continue Ambien as needed # morbid obesity -BMI 40 Hospital Course: Admitted for PNA and sepsis. Improved quickly with IV abx. Discharged home with po abx to complete 5 days. Exam Vital Signs (past 8 hours): - 09/21/23 04:00 09/21/23 08:00 Temperature 97.5 F L 97.1 F L Pulse Rate 86 84 Respiratory Rate 18 16 Blood Pressure 107/52 L 116/60 Pulse Oximetry 99 97 Oxygen Delivery Method Room Air Oxygen Flow Rate 0 Narrative Exam Narrative: GEN: no acute distress HEENT: moist mucous membranes, PERRL NECK: trachea midline, no JVD CV: regular rate and rhythm, no murmurs PULM: clear bilaterally ABD: soft, nontender, nondistended, no organomegaly EXT: warm and well perfused with no edema NEURO: awake, alert, oriented, no focal deficits Objective Labs 09/21/23 05:40 09/21/23 05:40 Labs: Laboratory Results - last 24 hr 09/21/23 09/21/23 09/21/23 05:40 06:25 09:53 WBC 9.4 RBC 4.29 Hgb 10.2 L Hct 31.0 L MCV 72.2 L MCH 23.7 L MCHC 32.8 RDW 14.5 Plt Count 237 Neut % (Auto) 79.9 H Lymph % (Auto) 11.1 L [place] % (Auto) 3.2 Eos % (Auto) 5.5 H Baso % (Auto) 0.3 Neut # (Auto) 7600 H Lymph # (Auto) 1100 [place] # (Auto) 300 Eos # (Auto) 500 H Baso # (Auto) 0 Sodium 140 Potassium 3.8 Chloride 110 H Carbon Dioxide 24 BUN 7 Creatinine 0.68 Estimated GFR > 60 BUN/Creatinine Ratio 10.3 Glucose 101 H Calcium 8.2 L Procalcitonin 4.39 H Vancomycin Peak 21.2 Vancomycin Trough 12.8 PFSH Medical History Anxiety Bipolar disorder with depression Borderline personality disorder Degenerative disc disease, cervical History of alcoholism Menorrhagia Migraine headache with aura Suicide attempt (~2016) Suicide ideation (~06/2018) Surgical History H/O breast augmentation H/O section H/O tubal ligation History of endometrial ablation (02/01/19) History of tonsillectomy Hx of appendectomy (~02/26/20) Social History household members: family Smoking Status: Former smoker alcohol intake: former Discharge Plan Discharge Plan Patient Disposition: Home Provider Discharge Comment: You were diagnosed with pneumonia. You improved with IV antibiotics and will finish some oral antibiotics at home. Discharge orders & Medications Prescriptions: New azithromycin 500 mg tablet 500 mg PO DAILY 1 Days Qty: 1 0RF Rx Instructions: take on 09/22 amoxicillin-pot clavulanate 875-125 mg tablet 1 tab PO BID 4 Days Qty: 8 0RF Rx Instructions: start evening of 09/21 Continued alprazolam 1 MG tablet 2 mg PO BEDTIME Qty: 0 gabapentin 600 mg Tablet 1,200 mg PO BEDTIME methocarbamol 500 mg tablet 500 mg PO BID PRN (Reason: muscle spasm) omeprazole 40 mg capsule,delayed release(DR/EC) 40 mg PO DAILY cyclobenzaprine 10 mg tablet 10 mg PO 3XD PRN (Reason: muscle spasm) ondansetron 8 mg tablet,disintegrating 8 mg PO Q8H PRN (Reason: nausea/vomiting) Vraylar 3 mg capsule 3 mg PO DAILY lisdexamfetamine [Vyvanse] 60 mg Capsule 60 mg PO DAILY albuterol sulfate 90 mcg/actuation Aerosol Powdr Breath Activated 2 inh INHALATION Q6H PRN (Reason: Shortness Of Breath Or Wheezing) zolpidem 10 mg tablet 10 mg PO ONCE PM PRN (Reason: Insomnia) lamotrigine 200 mg tablet 200 mg PO DAILY hydroxyzine HCl 50 mg Tablet 50 mg PO BID PRN (Reason: Anxiety) Follow up/Referrals: Avis Motta MD [Primary Care Provider] - 2 Weeks Visit Report/Discharge Packet Instructions: DI for Pneumonia -- Adult Stand Alone Forms: Patient Portal/API, Stroke Signs & Symptoms Discharge Data Primary Care Provider: Avis Motta
--- NOTE | 2023-09-21 12:15 | CM.DANOTE ---
Initial DCP Assessment Visit Note Reviewed EMR and team rounds for status updates. Met with pt at bedside to introduce self and role. Pt was found to be awake, alert/oriented, walking around her room, able to express her preferences for d/c. Plan is to d/c home this afternoon, no anticipated d/c needs, pt will drive herself. Payor: [facility] PCP: Avis Motta Pt is a 48 xiao-old F who presented to the ED last evening after she awoke shivering, teeth chattering, with audible wheezing and a cough. In the ED, CT imaging showed a right-sided probable bacterial pneumonia, with tachycardia, fever. She was started on IV fluids/ABO's, Toradol, and duoneb, then admitted to the floor for further eval and tx. This morning pt is feeling much improved, plan is for pt to d/c home today with continued oral antibiotics for the pneumonia. No further DCP needs identified at this time. Discharge Planning/Care Management CM Discharge Assessment Start: 09/21/23 12:11 Freq: Status: Active Protocol: Document 09/21/23 12:12 DPL (Rec: 09/21/23 12:13 DPL [id number]) Discharge Planning Assessment Assigned Orthopedic Shoe Maker ANGELINA Hyman Advance Directives? No Advance Directives on File No History Provided By Patient,Medical Record Has Patient been admitted in last 30 No days? Prior Living Arrangements House Household Members family Type of transporation used prior to Drives own vehicle admit Independent with ADL's Yes Is patient alert and oriented? Yes Comment N/A Comment No identified d/c needs at this time. Barriers to Discharge No Discharge Plan Home Transportation Arrangement Self Referrals Initiated None needed Whiteboard Updated in Patient Room with Yes name and ext. # of Orthopedic Shoe Maker Review Status In Process Please Provide Date Initial DC 09/21/23 Assessment Was Performed
--- NOTE | 2023-09-21 13:07 | PC.NURSE ---
Day shift: Pt states her breathing and shortness of breath feels much improved today. Discharge instructions gone over with patient. Pt stated understanding, all questions answered. PIV removed prior to discharge. All belongings with patient. PCT Gilbert escorted patient to exit where patient plans to drive herself home.
== END 2023-09-21 12:15 | disposition home or self-care (01) ==
LOC: ED 06:35 → AC 09-21 10:27
PROVIDERS: Admitting Provider Student in an Organized Health Care Education/Training Program; Emergency Provider Emergency Medicine; PCP Family Medicine; Referring Provider Emergency Medicine; Visit Provider Student in an Organized Health Care Education/Training Program
DX: A41.9 Sepsis, unspecified organism (principal); J18.9 Pneumonia, unspecified organism; E66.01 Morbid (severe) obesity due to excess calories; Z68.41 Body mass index [BMI] 40.0-44.9, adult; J45.20 Mild intermittent asthma, uncomplicated; F41.9 Anxiety disorder, unspecified; F31.9 Bipolar disorder, unspecified; G47.00 Insomnia, unspecified; E87.20 Acidosis, unspecified; Z11.52 Encounter for screening for COVID-19
CPT/HCPCS: 36415; 71045; 71275; 80048; 80053; 80202; 83605; 83735; 84145; 84484; 85025; 85379; 87040; 87633; 87797; 93005; 93010; 94640; 96361; 96365; 96366; 96367; 96372; 96375; 99285; G0378; J0692; J1650; J1885; Q9967

== ENCOUNTER 2024-06-06 21:02 | Emergency (ER) | payer MEDICAID, MEDICARE, SELFPAY ==
[2023-09-20 13:25] VITALS: BMI 41.4
[2024-06-06] VITALS (19 sets, daily range): BP systolic 114–182; BP diastolic 59–146; PULSE 106–151; RESP 15–42; TEMP 37; O2SAT 95–98
--- NOTE | 2024-06-06 21:17 | PC.NURSE ---
Pt contracts for safety. Says that she accidentally cut herself deeply. Belongings removed and pt placed in psych gown.
--- NOTE | 2024-06-06 21:45 | PC.NURSE ---
Pt getting agitated, saying that she doesn't need to stay in the ER. Pt pulled IV out. Explained to pt the she is involuntary and needs to be evaluated by MD. Pt left ER, 911 called. Police en route. Brought pt back to ED. Placed in seclusion room, all belongings removed and brought to mother. One on one observation.
--- NOTE | 2024-06-06 22:00 | PC.NURSE ---
Pt getting agitated, saying that she doesn't need to stay in the ER. Pt left ER, 911 called. Police en route. Mom was tearful in the department and told me that the pt was expressing how she has plans to kill herself and that she will walk into traffic and try to be hit by a vehicle in traffic. Police Brought pt back to ED. Pt was indeed found on the main road where she said that she would attempt to walk into the traffic. At this time the pt was put into room 13 for her safety. All items were removed from the room as well as any other personal belongings she had on her person. All belongings put in a pt belonging bag. Provided pt with a warm blanket. Pt expressed to tell her mother to go home and that she will get the help that she needs. Pt's mother was expressing to me that the pt has been drinking all day and asked the mother if she could use her car to go get more alcohol and when the mother told her no since she has been suicidal and drinking all day, that she then walked to the store to get more alcohol. Pt's mother was expressing to me that she has been left alone in the department before when she was here for similar complaints and when the pt went to the bathroom unwitnessed, she took apart the toilet paper roman and slit her wrists. The mother also expressed to me that the pt has had several inpatient stays for SI and that [facility] is her preferred facility if she was to need inpatient treatment. Mother and Pt do not want her to go to [facility] due to previous encounters at that facility. ASHLEY De La Vega aware of conversations I had with pt and Mother. Pt has a sitter and is on one on one observation at this time.
--- NOTE | 2024-06-06 22:06 | ED.PSYCH ---
HPI - Psych <Srinivasa Martinez MD - Last Filed: 06/07/24 11:04> General Chief Complaint: Psychiatric Symptoms Stated Complaint: self harm, L thigh Time Seen by Provider: 06/06/24 21:57 Source: EMS and police Mode of arrival: EMS History of Present Illness HPI Narrative: 49-year-old female with history of prior suicidal ideation, admits to self-inflicted lacerations to bilateral thighs today, cut with a knife, left thigh deeper laceration that other superficial cuts, after initial transport by EMS she attempted to leave the emergency department, attempted to walk out of the department, escorted by police back into the emergency department, agitated, but directable. Admitted to nursing that she wanted to drink enough alcohol when she got out of here in order to kill herself. Related Data Home Medications Medication Instructions Recorded Confirmed alprazolam 1 mg tablet 2 mg PO BEDTIME ##0 05/05/17 09/20/23 gabapentin 600 mg tablet 1,200 mg PO BEDTIME 11/24/20 09/20/23 albuterol sulfate 90 mcg/actuation 2 inh inhalation Q6H PRN Shortness 09/20/23 09/20/23 breath activated powder inhaler Of Breath Or Wheezing cariprazine 3 mg capsule (Vraylar) 3 mg PO DAILY 09/20/23 09/20/23 cyclobenzaprine 10 mg tablet 10 mg PO 3XD PRN muscle spasm 09/20/23 09/20/23 hydroxyzine HCl 50 mg tablet 50 mg PO BID PRN Anxiety 09/20/23 09/20/23 lamotrigine 200 mg tablet 200 mg PO DAILY 09/20/23 09/20/23 lisdexamfetamine 60 mg capsule 60 mg PO DAILY 09/20/23 09/20/23 (Vyvanse) methocarbamol 500 mg tablet 500 mg PO BID PRN muscle spasm 09/20/23 09/20/23 omeprazole 40 mg capsule,delayed 40 mg PO DAILY 09/20/23 09/20/23 release ondansetron 8 mg disintegrating 8 mg PO Q8H PRN nausea/vomiting 09/20/23 09/20/23 tablet zolpidem 10 mg tablet 10 mg PO ONCE PM PRN Insomnia 09/20/23 09/20/23 Previous Rx's Medication Instructions Recorded cephalexin 500 mg capsule 500 mg PO QID 5 days #20 caps 06/07/24 Allergies Allergy/AdvReac Type Severity Reaction Status Date / Time Sulfa (Sulfonamide Allergy Intermediate RASH Verified 04/02/22 13:23 Antibiotics) [SULFA (SULFONAMIDE ANTIBIOTICS)] hydrocodone AdvReac Intermediate ITCHING Verified 04/02/22 13:23 Review of Systems <Srinivasa Martinez MD - Last Filed: 06/07/24 11:04> Review of Systems Narrative: See HPI Patient History <Srinivasa Martinez MD - Last Filed: 06/07/24 11:04> Medical History Anxiety Bipolar disorder with depression Borderline personality disorder Degenerative disc disease, cervical History of alcoholism Menorrhagia Migraine headache with aura Suicide attempt (~2016) Suicide ideation (~06/2018) Surgical History H/O breast augmentation H/O section H/O tubal ligation History of endometrial ablation (02/01/19) History of tonsillectomy Hx of appendectomy (~02/26/20) Social History household members: family Smoking Status: Former smoker alcohol intake: former Smoking Status: Former smoker tobacco type: vaping alcohol intake frequency: 0-2 drinks per day Substance Use Type: does not use Exam <Srinivasa Martinez MD - Last Filed: 06/07/24 11:04> Narrative Exam Narrative: GENERAL:Well-developed patient, in mild distress. HEAD: Atraumatic. Normocephalic. EYES: Pupils equal round and reactive. Extraocular motions intact. No scleral icterus. No injection or drainage. ENT: Nose without bleeding, purulent drainage. Throat without erythema, tonsillar hypertrophy or exudate. Airway patent. NECK: Trachea midline. Non tender CARDIOVASCULAR: Regular rate and rhythm without murmurs, gallops, or rubs. RESPIRATORY: Clear to auscultation. Breath sounds equal bilaterally. No wheezes, rales, or rhonchi. GASTROINTESTINAL: Abdomen soft, non-tender, nondistended. EXTREMITIES: Bilateral thighs with linear parallel superficial lacerations, left anterior thigh with deeper larger 14 cm length laceration, central half of the wound fairly deep at 2-2.5 cm but without visible venules or arterials, nonpulsatile bright red blood oozing from the wound, lateral medial portions of the wound were more superficial but still 1-1.5cm depth through the subcutaneous tissue. No visible muscle bodies or fascial planes disrupted. No foreign body seen. BACK: Nontender without deformity or crepitance. No flank tenderness. NEURO: AOx3. Motor functions grossly nonfocal SKIN: No rash or erythema of visible areas Initial Vital Signs Initial Vital Signs: Vital Signs Temperature 98.6 F 06/06/24 21:03 Pulse Rate 112 H 06/06/24 21:03 Respiratory Rate 25 H 06/06/24 21:03 Blood Pressure 142/85 H 06/06/24 21:03 Pulse Oximetry 98 06/06/24 21:03 Oxygen Delivery Method Room Air 06/06/24 21:03 <Blaire Gonzales DO - Last Filed: 06/08/24 11:22> Initial Vital Signs Initial Vital Signs: Vital Signs Temperature 98.6 F 06/06/24 21:03 Pulse Rate 112 H 06/06/24 21:03 Respiratory Rate 25 H 06/06/24 21:03 Blood Pressure 142/85 H 06/06/24 21:03 Pulse Oximetry 98 06/06/24 21:03 Oxygen Delivery Method Room Air 06/06/24 21:03 <Jann Moreno DO - Last Filed: 06/07/24 18:51> Initial Vital Signs Initial Vital Signs: Vital Signs Temperature 98.6 F 06/06/24 21:03 Pulse Rate 112 H 06/06/24 21:03 Respiratory Rate 25 H 06/06/24 21:03 Blood Pressure 142/85 H 06/06/24 21:03 Pulse Oximetry 98 06/06/24 21:03 Oxygen Delivery Method Room Air 06/06/24 21:03 Procedures <Srinivasa Martinez MD - Last Filed: 06/07/24 11:04> Laceration Repair Laceration 1: Time of procedure: 00:11 Site: lower extremity Side (If applicable): left Size (cm): 14 Description: linear Depth: simple, single layer (1-2 cm depth through subcutaneous space, not through any fascia or muscle structures, no foreign body seen, no large vascular structures identified) Local Anesthetic: lidocaine 1% Amount of anesthesia used (mL): 20 Pre-repair: wound explored and irrigated extensively Skin layer closed with: janis (Skin layer closed with 21 janis) Subcutaneous layer closed with: vicryl Subcutaneous layer suture size: other (0-Vicryl deeper subcutaneous layer closed with locking running suture, 0-Vicryl more superficial subcutaneous layer closed with nonlocking running suture, in order to approximate skin edges for staple closure) Number of sutures: 2 Technique: running Procedural Sedation Time of procedure: 23:00 Consent signed: Yes Indication: other (Large anterior left thigh multilayer laceration closure) ASA Class: I Mallampati Airway Classification: Class I Preparation: actuarial technician applied, pulse oximeter, capnometry used, reversal agents at bedside, suction/airway equipment at bedside and IV secured Ketamine: IM Ketamine dose (mg): 400 ED Sedation Level: Moderate (Concious) Patient Tolerated Procedure: Well Complications: none Additional Comments: Tolerated sedation well for multilayer large left anterior thigh complex laceration repair Course <Srinivasa Martinez MD - Last Filed: 06/07/24 11:04> Orders Ordered: Discontinued Medications Acetaminophen (Acetaminophen 325 Mg Tablet) 650 mg PO NOW ONE Stop: 06/07/24 03:20 Last Admin: 06/07/24 03:26 Dose: 650 mg Documented By: Acetaminophen (Acetaminophen 325 Mg Tablet) 650 mg PO NOW ONE Stop: 06/07/24 09:43 Last Admin: 06/07/24 09:46 Dose: 650 mg Documented By: BRENDAN Bacitracin (Bacitracin Oint 0.9 Gm Pckt) 1 applic TOP NOW ONE Stop: 06/06/24 22:48 Last Admin: 06/07/24 00:15 Dose: 1 applic Documented By: Cephalexin HCl (Cephalexin 250 Mg Capsule) 500 mg PO NOW ONE Stop: 06/07/24 00:11 Last Admin: 06/07/24 00:44 Dose: 500 mg Documented By: Cephalexin HCl (Cephalexin 250 Mg Capsule) 500 mg PO QID [facility] Last Admin: 06/07/24 19:08 Dose: 500 mg Documented By: Admin: 06/07/24 16:05 Dose: 500 mg Documented By: Admin: 06/07/24 09:48 Dose: 500 mg Documented By: BRENDAN Diphtheria/Tetanus/Acell Pertussis (Tet,Diph,Pertuss(Acell),Vac/Pf 0.5 Ml Syringe) 0.5 ml IM .ONCE ONE Stop: 06/07/24 00:16 Last Admin: 06/07/24 00:45 Dose: 0.5 ml Documented By: Estradiol (Estradiol 1 Mg Tablet) 1 mg PO NOW ONE Stop: 06/07/24 09:57 Last Admin: 06/07/24 09:57 Dose: 1 mg Documented By: BRENDAN Gabapentin (Gabapentin 600 Mg Tablet) 600 mg PO BID [facility] Last Admin: 06/07/24 09:28 Dose: Not Given Documented By: BRENDAN Gabapentin (Gabapentin 600 Mg Tablet) 600 mg PO 799,1999 [facility] Last Admin: 06/07/24 09:59 Dose: 600 mg Documented By: BRENDAN Hydroxyzine HCl (Hydroxyzine Hcl 25 Mg Tablet) 50 mg PO NOW ONE Stop: 06/07/24 08:52 Last Admin: 06/07/24 09:49 Dose: 50 mg Documented By: BRENDAN Ketamine HCl (Ketamine 500 Mg/5 Ml Inj) 400 mg IM NOW ONE Stop: 06/06/24 22:22 Last Admin: 06/06/24 22:34 Dose: 400 mg Documented By: Lorazepam (Lorazepam 2 Mg/Ml Inj) 2 mg IV NOW ONE Stop: 06/06/24 23:28 Last Admin: 06/06/24 23:31 Dose: 2 mg Documented By: Non-Formulary Medication (Omeprazole) 40 mg PO NOW ONE Stop: 06/07/24 09:28 Last Admin: 06/07/24 09:53 Dose: 40 mg Documented By: BRENDAN Home Medication (Storage) 0 each PO PRN PRN PRN Reason: Home Medication Storage Ondansetron HCl (Ondansetron 4 Mg/2 Ml Inj) 4 mg IV NOW ONE Stop: 06/07/24 00:58 Last Admin: 06/07/24 01:00 Dose: 4 mg Documented By: Valacyclovir HCl (Valacyclovir 500 Mg Tablet) 500 mg PO NOW ONE Stop: 06/07/24 09:56 Last Admin: 06/07/24 09:58 Dose: 500 mg Documented By: BRENDAN Vital Signs Vital signs: Vital Signs - 8 hr 06/07/24 17:07 06/07/24 18:40 Pulse Rate 95 H 102 H Respiratory Rate 18 Blood Pressure 136/79 144/72 H Pulse Oximetry 100 100 Oxygen Delivery Method Room Air Room Air Oxygen Flow Rate 0 <Blaire Gonzales, DO - Last Filed: 06/08/24 11:22> Orders Ordered: Discontinued Medications Acetaminophen (Acetaminophen 325 Mg Tablet) 650 mg PO NOW ONE Stop: 06/07/24 03:20 Last Admin: 06/07/24 03:26 Dose: 650 mg Documented By: Acetaminophen (Acetaminophen 325 Mg Tablet) 650 mg PO NOW ONE Stop: 06/07/24 09:43 Last Admin: 06/07/24 09:46 Dose: 650 mg Documented By: SPF Bacitracin (Bacitracin Oint 0.9 Gm Pckt) 1 applic TOP NOW ONE Stop: 06/06/24 22:48 Last Admin: 06/07/24 00:15 Dose: 1 applic Documented By: Cephalexin HCl (Cephalexin 250 Mg Capsule) 500 mg PO NOW ONE Stop: 06/07/24 00:11 Last Admin: 06/07/24 00:44 Dose: 500 mg Documented By: Cephalexin HCl (Cephalexin 250 Mg Capsule) 500 mg PO QID [facility] Last Admin: 06/07/24 19:08 Dose: 500 mg Documented By: Admin: 06/07/24 16:05 Dose: 500 mg Documented By: Admin: 06/07/24 09:48 Dose: 500 mg Documented By: SPF Diphtheria/Tetanus/Acell Pertussis (Tet,Diph,Pertuss(Acell),Vac/Pf 0.5 Ml Syringe) 0.5 ml IM .ONCE ONE Stop: 06/07/24 00:16 Last Admin: 06/07/24 00:45 Dose: 0.5 ml Documented By: Estradiol (Estradiol 1 Mg Tablet) 1 mg PO NOW ONE Stop: 06/07/24 09:57 Last Admin: 06/07/24 09:57 Dose: 1 mg Documented By: SPF Gabapentin (Gabapentin 600 Mg Tablet) 600 mg PO BID [facility] Last Admin: 06/07/24 09:28 Dose: Not Given Documented By: BRENDAN Gabapentin (Gabapentin 600 Mg Tablet) 600 mg PO 799,1999 [facility] Last Admin: 06/07/24 09:59 Dose: 600 mg Documented By: SPF Hydroxyzine HCl (Hydroxyzine Hcl 25 Mg Tablet) 50 mg PO NOW ONE Stop: 06/07/24 08:52 Last Admin: 06/07/24 09:49 Dose: 50 mg Documented By: BRENDAN Ketamine HCl (Ketamine 500 Mg/5 Ml Inj) 400 mg IM NOW ONE Stop: 06/06/24 22:22 Last Admin: 06/06/24 22:34 Dose: 400 mg Documented By: Lorazepam (Lorazepam 2 Mg/Ml Inj) 2 mg IV NOW ONE Stop: 06/06/24 23:28 Last Admin: 06/06/24 23:31 Dose: 2 mg Documented By: Non-Formulary Medication (Omeprazole) 40 mg PO NOW ONE Stop: 06/07/24 09:28 Last Admin: 06/07/24 09:53 Dose: 40 mg Documented By: BRENDAN Home Medication (Storage) 0 each PO PRN PRN PRN Reason: Home Medication Storage Ondansetron HCl (Ondansetron 4 Mg/2 Ml Inj) 4 mg IV NOW ONE Stop: 06/07/24 00:58 Last Admin: 06/07/24 01:00 Dose: 4 mg Documented By: Valacyclovir HCl (Valacyclovir 500 Mg Tablet) 500 mg PO NOW ONE Stop: 06/07/24 09:56 Last Admin: 06/07/24 09:58 Dose: 500 mg Documented By: BRENDAN Vital Signs Vital signs: Vital Signs - 8 hr 06/07/24 17:07 06/07/24 18:40 Pulse Rate 95 H 102 H Respiratory Rate 18 Blood Pressure 136/79 144/72 H Pulse Oximetry 100 100 Oxygen Delivery Method Room Air Room Air Oxygen Flow Rate 0 <Jann Moreno DO - Last Filed: 06/07/24 18:51> Orders Ordered: Discontinued Medications Acetaminophen (Acetaminophen 325 Mg Tablet) 650 mg PO NOW ONE Stop: 06/07/24 03:20 Last Admin: 06/07/24 03:26 Dose: 650 mg Documented By: Acetaminophen (Acetaminophen 325 Mg Tablet) 650 mg PO NOW ONE Stop: 06/07/24 09:43 Last Admin: 06/07/24 09:46 Dose: 650 mg Documented By: BRENDAN Bacitracin (Bacitracin Oint 0.9 Gm Pckt) 1 applic TOP NOW ONE Stop: 06/06/24 22:48 Last Admin: 06/07/24 00:15 Dose: 1 applic Documented By: Cephalexin HCl (Cephalexin 250 Mg Capsule) 500 mg PO NOW ONE Stop: 06/07/24 00:11 Last Admin: 06/07/24 00:44 Dose: 500 mg Documented By: Cephalexin HCl (Cephalexin 250 Mg Capsule) 500 mg PO QID [facility] Last Admin: 06/07/24 19:08 Dose: 500 mg Documented By: Admin: 06/07/24 16:05 Dose: 500 mg Documented By: Admin: 06/07/24 09:48 Dose: 500 mg Documented By: BRENDAN Diphtheria/Tetanus/Acell Pertussis (Tet,Diph,Pertuss(Acell),Vac/Pf 0.5 Ml Syringe) 0.5 ml IM .ONCE ONE Stop: 06/07/24 00:16 Last Admin: 06/07/24 00:45 Dose: 0.5 ml Documented By: Estradiol (Estradiol 1 Mg Tablet) 1 mg PO NOW ONE Stop: 06/07/24 09:57 Last Admin: 06/07/24 09:57 Dose: 1 mg Documented By: BRENDAN Gabapentin (Gabapentin 600 Mg Tablet) 600 mg PO BID [facility] Last Admin: 06/07/24 09:28 Dose: Not Given Documented By: BRENDAN Gabapentin (Gabapentin 600 Mg Tablet) 600 mg PO 799,1999 [facility] Last Admin: 06/07/24 09:59 Dose: 600 mg Documented By: BRENDAN Hydroxyzine HCl (Hydroxyzine Hcl 25 Mg Tablet) 50 mg PO NOW ONE Stop: 06/07/24 08:52 Last Admin: 06/07/24 09:49 Dose: 50 mg Documented By: BRENDAN Ketamine HCl (Ketamine 500 Mg/5 Ml Inj) 400 mg IM NOW ONE Stop: 06/06/24 22:22 Last Admin: 06/06/24 22:34 Dose: 400 mg Documented By: Lorazepam (Lorazepam 2 Mg/Ml Inj) 2 mg IV NOW ONE Stop: 06/06/24 23:28 Last Admin: 06/06/24 23:31 Dose: 2 mg Documented By: Non-Formulary Medication (Omeprazole) 40 mg PO NOW ONE Stop: 06/07/24 09:28 Last Admin: 06/07/24 09:53 Dose: 40 mg Documented By: BRENDAN Home Medication (Storage) 0 each PO PRN PRN PRN Reason: Home Medication Storage Ondansetron HCl (Ondansetron 4 Mg/2 Ml Inj) 4 mg IV NOW ONE Stop: 06/07/24 00:58 Last Admin: 06/07/24 01:00 Dose: 4 mg Documented By: Valacyclovir HCl (Valacyclovir 500 Mg Tablet) 500 mg PO NOW ONE Stop: 06/07/24 09:56 Last Admin: 06/07/24 09:58 Dose: 500 mg Documented By: BRENDAN Vital Signs Vital signs: Vital Signs - 8 hr 06/07/24 17:07 06/07/24 18:40 Pulse Rate 95 H 102 H Respiratory Rate 18 Blood Pressure 136/79 144/72 H Pulse Oximetry 100 100 Oxygen Delivery Method Room Air Room Air Oxygen Flow Rate 0 MDM - Psych <Srinivasa Martinez MD - Last Filed: 06/07/24 11:04> Lab Data Attestation: I reviewed the patient's lab results. Lab results narrative: Up blood cell count 9200, hemoglobin 13.1, platelets adequate. Basic metabolic panel unremarkable. Glucose 96. Slight elevation ALT, otherwise unremarkable liver functions. Serum hCG negative. Urine drug screen positive for tricyclic antidepressant, amphetamine, benzodiazepine. Serum ethanol 175. 06/06/24 22:18 06/06/24 22:18 Labs: Lab Results 06/06/24 06/06/24 06/07/24 Range/Units 22:02 22:18 01:30 WBC 9.2 (4.5-11.0) X10^3/uL RBC 5.41 H (4.0-5.2) X10^6/uL Hgb 13.1 (12.0-16.0) g/dL Hct 40.4 (36-46) % MCV 74.7 L (80-100) fL MCH 24.1 L (26-34) PG MCHC 32.3 (30-36) % RDW 14.7 (11.6-14.8) % Plt Count 305 (150-400) X10^3/uL Neut % (Auto) 63.5 (50-75) % Lymph % (Auto) 28.7 (25-40) % [place] % (Auto) 6.2 (3-14) % Eos % (Auto) 1.3 L (2-4) % Baso % (Auto) 0.3 (0-2) % Neut # (Auto) 5800 (2321-9176) /uL Lymph # (Auto) 2600 (8432-8673) /uL [place] # (Auto) 600 (0-900) /uL Eos # (Auto) 100 (0-450) /uL Baso # (Auto) 0 (0-100) /uL Sodium 142 (137-145) mmol/L Potassium 3.4 (3.4-5.1) mmol/L Chloride 109 H (98-107) mmol/L Carbon Dioxide 21 L (22-32) mmol/L BUN 4 L (7-17) mg/dL Creatinine 0.89 (0.52-1.04) mg/dL Estimated GFR > 60 (>60) mL/min BUN/Creatinine Ratio 4.5 L (6-22) Glucose 96 (70-100) mg/dL Calcium 9.2 (8.4-10.2) mg/dL Total Bilirubin 0.4 (0.2-1.3) mg/dL AST 32 (14-36) IU/L ALT 35 H (<35) IU/L Alkaline Phosphatase 68 (38-126) U/L Total Protein 7.1 (6.3-8.2) g/dL Albumin 4.3 (3.5-5.0) g/dL Globulin 2.8 (1.7-4.1) g/dL Albumin/Globulin Ratio 1.5 (1.0-2.8) TSH 2.41 (0.47-4.68) uIU/mL Serum , Qual Negative (Negative) Salicylates < 1.0 (<20) mg/dL U Opiates 300ng/mL cut Negative (Negative) Ur Oxycodone Screen Negative (Negative) Urine Methadone Screen Negative (Negative) Acetaminophen < 10 (10-30) ug/mL Ur Barbiturates Screen Negative (Negative) U Tricyclic Antidepress Positive H (Negative) Ur Phencyclidine Scrn Negative (Negative) Ur Amphetamines Screen Positive H (Negative) U Methamphetamines Scrn Negative (Negative) Ur MDMA Scrn (Ecstasy) Negative (Negative) U Benzodiazepines Scrn Positive H (Negative) Urine Cocaine Screen Negative (Negative) U Marijuana (THC) Screen Negative (Negative) Urine pH Normal (Normal) Urine Specific [place] Normal (Normal) Ethyl Alcohol 175 H ( - 10) mg/dL Ur Creatinine Normal (Normal) SARS-CoV-2 (PCR) (Negative) 06/07/24 Range/Units 12:17 WBC (4.5-11.0) X10^3/uL RBC (4.0-5.2) X10^6/uL Hgb (12.0-16.0) g/dL Hct (36-46) % MCV (80-100) fL MCH (26-34) PG MCHC (30-36) % RDW (11.6-14.8) % Plt Count (150-400) X10^3/uL Neut % (Auto) (50-75) % Lymph % (Auto) (25-40) % [place] % (Auto) (3-14) % Eos % (Auto) (2-4) % Baso % (Auto) (0-2) % Neut # (Auto) (5839-3943) /uL Lymph # (Auto) (5987-6983) /uL [place] # (Auto) (0-900) /uL Eos # (Auto) (0-450) /uL Baso # (Auto) (0-100) /uL Sodium (137-145) mmol/L Potassium (3.4-5.1) mmol/L Chloride (98-107) mmol/L Carbon Dioxide (22-32) mmol/L BUN (7-17) mg/dL Creatinine (0.52-1.04) mg/dL Estimated GFR (>60) mL/min BUN/Creatinine Ratio (6-22) Glucose (70-100) mg/dL Calcium (8.4-10.2) mg/dL Total Bilirubin (0.2-1.3) mg/dL AST (14-36) IU/L ALT (<35) IU/L Alkaline Phosphatase (38-126) U/L Total Protein (6.3-8.2) g/dL Albumin (3.5-5.0) g/dL Globulin (1.7-4.1) g/dL Albumin/Globulin Ratio (1.0-2.8) TSH (0.47-4.68) uIU/mL Serum , Qual (Negative) Salicylates (<20) mg/dL U Opiates 300ng/mL cut (Negative) Ur Oxycodone Screen (Negative) Urine Methadone Screen (Negative) Acetaminophen (10-30) ug/mL Ur Barbiturates Screen (Negative) U Tricyclic Antidepress (Negative) Ur Phencyclidine Scrn (Negative) Ur Amphetamines Screen (Negative) U Methamphetamines Scrn (Negative) Ur MDMA Scrn (Ecstasy) (Negative) U Benzodiazepines Scrn (Negative) Urine Cocaine Screen (Negative) U Marijuana (THC) Screen (Negative) Urine pH (Normal) Urine Specific [place] (Normal) Ethyl Alcohol ( - 10) mg/dL Ur Creatinine (Normal) SARS-CoV-2 (PCR) Negative (Negative) Point of Care Testing Test Results Negative Urine Dip Bedside Urine Glucose Negative Bedside Urine Bilirubin - Negative Bedside Urine Ketone - Negative Urine Specific [place] 1.010 Bedside Urine Occult Blood - Negative Bedside Urine pH 6.0 Bedside Urine Protein - Negative Bedside Urine Urobilinogen - Negative Bedside Urine Nitrite - Negative Bedside Urine Leukocytes +/- 15 Esterase MDM Narrative Medical decision making narrative: Self-inflicted right and left anterior thigh lacerations, perhaps 20 on each thigh, all but one superficial. Larger oblique linear 14 cm laceration anteromedial left thigh, no pulsatile bleeding, scant ooze, center depth 2-2.5cm, at wound edges more like 1 cm depth. No visible venules or arterial structures. No foreign bodies visible. Patient on arrival to EMS, told nursing that when she leaves here she would drink herself to , attempted to leavee the department, PD was called and redirected back in the room. She was somewhat agitated but generally re-directable. Patient from room 13 floor mat moved to room 1 for conscious sedation and wound repair of large left anterior deep laceration. See procedure notes for wound closure and sedation. IM ketamine, IV Ativan. Local 1% lidocaine with epinephrine into subcutaneous space and along skin wound edge, total 20mL. Deep component laceration closed 0-Vicryl running locking suture. More superficial subcutaneous laceration layer closed 0-Vicryl running suture. Skin layer closed then with janis. Screening labs notable for blood alcohol level 170s, urine tox screen positive for amphetamine and benzodiazepine and TCA. Acetaminophen and salicylate levels negative. 0030, Tetanus updated, oral cephalexin dose given. Mental status improved, stable for procedure. Moved back to room 13. Medically cleared for DCS consult. 0045, case discussed with DEJA Medellin, he will come to consult in ED for disposition plan 0400, DCS consulting 0530, bed search in progress 0545, case discussed with DEJA Medellin, for now there has been no identified facility willing to take patient, citing varied concerns, such as risk of developing alcohol withdrawal, such as presence of janis closure surgical wound. He defers further bed search to foster care social worker when available later today during regular hours. 0700, signed out to oncoming ED shift physician Dr Gonzales 06/07/2024 Dr. Gonzales: Patient signed out to myself while awaiting evaluation with [employer]. Patient was seen by DCS Vignesh unable to identify facility and had a walk away. <Blaire Gonzales, DO - Last Filed: 06/08/24 11:22> Lab Data Labs: Lab Results 06/06/24 06/06/24 06/07/24 Range/Units 22:02 22:18 01:30 WBC 9.2 (4.5-11.0) X10^3/uL RBC 5.41 H (4.0-5.2) X10^6/uL Hgb 13.1 (12.0-16.0) g/dL Hct 40.4 (36-46) % MCV 74.7 L (80-100) fL MCH 24.1 L (26-34) PG MCHC 32.3 (30-36) % RDW 14.7 (11.6-14.8) % Plt Count 305 (150-400) X10^3/uL Neut % (Auto) 63.5 (50-75) % Lymph % (Auto) 28.7 (25-40) % [place] % (Auto) 6.2 (3-14) % Eos % (Auto) 1.3 L (2-4) % Baso % (Auto) 0.3 (0-2) % Neut # (Auto) 5800 (4967-0745) /uL Lymph # (Auto) 2600 (3106-3878) /uL [place] # (Auto) 600 (0-900) /uL Eos # (Auto) 100 (0-450) /uL Baso # (Auto) 0 (0-100) /uL Sodium 142 (137-145) mmol/L Potassium 3.4 (3.4-5.1) mmol/L Chloride 109 H (98-107) mmol/L Carbon Dioxide 21 L (22-32) mmol/L BUN 4 L (7-17) mg/dL Creatinine 0.89 (0.52-1.04) mg/dL Estimated GFR > 60 (>60) mL/min BUN/Creatinine Ratio 4.5 L (6-22) Glucose 96 (70-100) mg/dL Calcium 9.2 (8.4-10.2) mg/dL Total Bilirubin 0.4 (0.2-1.3) mg/dL AST 32 (14-36) IU/L ALT 35 H (<35) IU/L Alkaline Phosphatase 68 (38-126) U/L Total Protein 7.1 (6.3-8.2) g/dL Albumin 4.3 (3.5-5.0) g/dL Globulin 2.8 (1.7-4.1) g/dL Albumin/Globulin Ratio 1.5 (1.0-2.8) TSH 2.41 (0.47-4.68) uIU/mL Serum , Qual Negative (Negative) Salicylates < 1.0 (<20) mg/dL U Opiates 300ng/mL cut Negative (Negative) Ur Oxycodone Screen Negative (Negative) Urine Methadone Screen Negative (Negative) Acetaminophen < 10 (10-30) ug/mL Ur Barbiturates Screen Negative (Negative) U Tricyclic Antidepress Positive H (Negative) Ur Phencyclidine Scrn Negative (Negative) Ur Amphetamines Screen Positive H (Negative) U Methamphetamines Scrn Negative (Negative) Ur MDMA Scrn (Ecstasy) Negative (Negative) U Benzodiazepines Scrn Positive H (Negative) Urine Cocaine Screen Negative (Negative) U Marijuana (THC) Screen Negative (Negative) Urine pH Normal (Normal) Urine Specific [place] Normal (Normal) Ethyl Alcohol 175 H ( - 10) mg/dL Ur Creatinine Normal (Normal) SARS-CoV-2 (PCR) (Negative) 06/07/24 Range/Units 12:17 WBC (4.5-11.0) X10^3/uL RBC (4.0-5.2) X10^6/uL Hgb (12.0-16.0) g/dL Hct (36-46) % MCV (80-100) fL MCH (26-34) PG MCHC (30-36) % RDW (11.6-14.8) % Plt Count (150-400) X10^3/uL Neut % (Auto) (50-75) % Lymph % (Auto) (25-40) % [place] % (Auto) (3-14) % Eos % (Auto) (2-4) % Baso % (Auto) (0-2) % Neut # (Auto) (1240-9240) /uL Lymph # (Auto) (8700-6597) /uL [place] # (Auto) (0-900) /uL Eos # (Auto) (0-450) /uL Baso # (Auto) (0-100) /uL Sodium (137-145) mmol/L Potassium (3.4-5.1) mmol/L Chloride (98-107) mmol/L Carbon Dioxide (22-32) mmol/L BUN (7-17) mg/dL Creatinine (0.52-1.04) mg/dL Estimated GFR (>60) mL/min BUN/Creatinine Ratio (6-22) Glucose (70-100) mg/dL Calcium (8.4-10.2) mg/dL Total Bilirubin (0.2-1.3) mg/dL AST (14-36) IU/L ALT (<35) IU/L Alkaline Phosphatase (38-126) U/L Total Protein (6.3-8.2) g/dL Albumin (3.5-5.0) g/dL Globulin (1.7-4.1) g/dL Albumin/Globulin Ratio (1.0-2.8) TSH (0.47-4.68) uIU/mL Serum , Qual (Negative) Salicylates (<20) mg/dL U Opiates 300ng/mL cut (Negative) Ur Oxycodone Screen (Negative) Urine Methadone Screen (Negative) Acetaminophen (10-30) ug/mL Ur Barbiturates Screen (Negative) U Tricyclic Antidepress (Negative) Ur Phencyclidine Scrn (Negative) Ur Amphetamines Screen (Negative) U Methamphetamines Scrn (Negative) Ur MDMA Scrn (Ecstasy) (Negative) U Benzodiazepines Scrn (Negative) Urine Cocaine Screen (Negative) U Marijuana (THC) Screen (Negative) Urine pH (Normal) Urine Specific [place] (Normal) Ethyl Alcohol ( - 10) mg/dL Ur Creatinine (Normal) SARS-CoV-2 (PCR) Negative (Negative) Point of Care Testing Test Results Negative Urine Dip Bedside Urine Glucose Negative Bedside Urine Bilirubin - Negative Bedside Urine Ketone - Negative Urine Specific [place] 1.010 Bedside Urine Occult Blood - Negative Bedside Urine pH 6.0 Bedside Urine Protein - Negative Bedside Urine Urobilinogen - Negative Bedside Urine Nitrite - Negative Bedside Urine Leukocytes +/- 15 Esterase MDM Narrative Medical decision making narrative: Self-inflicted right and left anterior thigh lacerations, perhaps 20 on each thigh, all but one superficial. Larger oblique linear 14 cm laceration anteromedial left thigh, no pulsatile bleeding, scant ooze, center depth 2-2.5cm, at wound edges more like 1 cm depth. No visible venules or arterial structures. No foreign bodies visible. Patient on arrival to EMS, told nursing that when she leaves here she would drink herself to , attempted to leavee the department, PD was called and redirected back in the room. She was somewhat agitated but generally re-directable. Patient from room 13 floor mat moved to room 1 for conscious sedation and wound repair of large left anterior deep laceration. See procedure notes for wound closure and sedation. IM ketamine, IV Ativan. Local 1% lidocaine with epinephrine into subcutaneous space and along skin wound edge, total 20mL. Deep component laceration closed 0-Vicryl running locking suture. More superficial subcutaneous laceration layer closed 0-Vicryl running suture. Skin layer closed then with janis. Screening labs notable for blood alcohol level 170s, urine tox screen positive for amphetamine and benzodiazepine and TCA. Acetaminophen and salicylate levels negative. 0030, Tetanus updated, oral cephalexin dose given. Mental status improved, stable for procedure. Moved back to room 13. Medically cleared for DCS consult. 0045, case discussed with DEJA Medellin, he will come to consult in ED for disposition plan 0400, DCS consulting 0530, bed search in progress 0545, case discussed with DEJA Medellin, for now there has been no identified facility willing to take patient, citing varied concerns, such as risk of developing alcohol withdrawal, such as presence of janis closure surgical wound. He defers further bed search to foster care social worker when available later today during regular hours. 0700, signed out to oncoming ED shift physician Dr Gonzales 06/07/2024 Dr. Gonzales: Patient signed out to myself while awaiting evaluation with [facility]. Patient was seen by DEJA Medellin unable to identify facility and had a walk away could not find bed placement. Throughout the day patient has been cooperative, calm, expresses not feeling suicidal at this time. Was interested in voluntary/dual diagnosis detox. [facility] was looking found a place but they did not take the patient's insurance. Was going to discuss if patient wants to be self pay. Patient received oral cephalexin. Family also brought in her home medications given her a.m. doses. Dr moreno: Received turned over. Review patient's history and physical exam. Patient has had multiple evaluations by both the DCR and social work. No facility he was capable of taking patient has an inpatient for various reasons. Patient is now luc for safety with foster care social worker. Would like to be discharged home. Is being discharged home with mother. <Jann Moreno, DO - Last Filed: 06/07/24 18:51> Lab Data Labs: Lab Results 06/06/24 06/06/24 06/07/24 Range/Units 22:02 22:18 01:30 WBC 9.2 (4.5-11.0) X10^3/uL RBC 5.41 H (4.0-5.2) X10^6/uL Hgb 13.1 (12.0-16.0) g/dL Hct 40.4 (36-46) % MCV 74.7 L (80-100) fL MCH 24.1 L (26-34) PG MCHC 32.3 (30-36) % RDW 14.7 (11.6-14.8) % Plt Count 305 (150-400) X10^3/uL Neut % (Auto) 63.5 (50-75) % Lymph % (Auto) 28.7 (25-40) % [place] % (Auto) 6.2 (3-14) % Eos % (Auto) 1.3 L (2-4) % Baso % (Auto) 0.3 (0-2) % Neut # (Auto) 5800 (3075-7506) /uL Lymph # (Auto) 2600 (6724-3575) /uL [place] # (Auto) 600 (0-900) /uL Eos # (Auto) 100 (0-450) /uL Baso # (Auto) 0 (0-100) /uL Sodium 142 (137-145) mmol/L Potassium 3.4 (3.4-5.1) mmol/L Chloride 109 H (98-107) mmol/L Carbon Dioxide 21 L (22-32) mmol/L BUN 4 L (7-17) mg/dL Creatinine 0.89 (0.52-1.04) mg/dL Estimated GFR > 60 (>60) mL/min BUN/Creatinine Ratio 4.5 L (6-22) Glucose 96 (70-100) mg/dL Calcium 9.2 (8.4-10.2) mg/dL Total Bilirubin 0.4 (0.2-1.3) mg/dL AST 32 (14-36) IU/L ALT 35 H (<35) IU/L Alkaline Phosphatase 68 (38-126) U/L Total Protein 7.1 (6.3-8.2) g/dL Albumin 4.3 (3.5-5.0) g/dL Globulin 2.8 (1.7-4.1) g/dL Albumin/Globulin Ratio 1.5 (1.0-2.8) TSH 2.41 (0.47-4.68) uIU/mL Serum , Qual Negative (Negative) Salicylates < 1.0 (<20) mg/dL U Opiates 300ng/mL cut Negative (Negative) Ur Oxycodone Screen Negative (Negative) Urine Methadone Screen Negative (Negative) Acetaminophen < 10 (10-30) ug/mL Ur Barbiturates Screen Negative (Negative) U Tricyclic Antidepress Positive H (Negative) Ur Phencyclidine Scrn Negative (Negative) Ur Amphetamines Screen Positive H (Negative) U Methamphetamines Scrn Negative (Negative) Ur MDMA Scrn (Ecstasy) Negative (Negative) U Benzodiazepines Scrn Positive H (Negative) Urine Cocaine Screen Negative (Negative) U Marijuana (THC) Screen Negative (Negative) Urine pH Normal (Normal) Urine Specific [place] Normal (Normal) Ethyl Alcohol 175 H ( - 10) mg/dL Ur Creatinine Normal (Normal) SARS-CoV-2 (PCR) (Negative) 06/07/24 Range/Units 12:17 WBC (4.5-11.0) X10^3/uL RBC (4.0-5.2) X10^6/uL Hgb (12.0-16.0) g/dL Hct (36-46) % MCV (80-100) fL MCH (26-34) PG MCHC (30-36) % RDW (11.6-14.8) % Plt Count (150-400) X10^3/uL Neut % (Auto) (50-75) % Lymph % (Auto) (25-40) % [place] % (Auto) (3-14) % Eos % (Auto) (2-4) % Baso % (Auto) (0-2) % Neut # (Auto) (2024-0443) /uL Lymph # (Auto) (3089-4446) /uL [place] # (Auto) (0-900) /uL Eos # (Auto) (0-450) /uL Baso # (Auto) (0-100) /uL Sodium (137-145) mmol/L Potassium (3.4-5.1) mmol/L Chloride (98-107) mmol/L Carbon Dioxide (22-32) mmol/L BUN (7-17) mg/dL Creatinine (0.52-1.04) mg/dL Estimated GFR (>60) mL/min BUN/Creatinine Ratio (6-22) Glucose (70-100) mg/dL Calcium (8.4-10.2) mg/dL Total Bilirubin (0.2-1.3) mg/dL AST (14-36) IU/L ALT (<35) IU/L Alkaline Phosphatase (38-126) U/L Total Protein (6.3-8.2) g/dL Albumin (3.5-5.0) g/dL Globulin (1.7-4.1) g/dL Albumin/Globulin Ratio (1.0-2.8) TSH (0.47-4.68) uIU/mL Serum , Qual (Negative) Salicylates (<20) mg/dL U Opiates 300ng/mL cut (Negative) Ur Oxycodone Screen (Negative) Urine Methadone Screen (Negative) Acetaminophen (10-30) ug/mL Ur Barbiturates Screen (Negative) U Tricyclic Antidepress (Negative) Ur Phencyclidine Scrn (Negative) Ur Amphetamines Screen (Negative) U Methamphetamines Scrn (Negative) Ur MDMA Scrn (Ecstasy) (Negative) U Benzodiazepines Scrn (Negative) Urine Cocaine Screen (Negative) U Marijuana (THC) Screen (Negative) Urine pH (Normal) Urine Specific [place] (Normal) Ethyl Alcohol ( - 10) mg/dL Ur Creatinine (Normal) SARS-CoV-2 (PCR) Negative (Negative) Point of Care Testing Test Results Negative Urine Dip Bedside Urine Glucose Negative Bedside Urine Bilirubin - Negative Bedside Urine Ketone - Negative Urine Specific [place] 1.010 Bedside Urine Occult Blood - Negative Bedside Urine pH 6.0 Bedside Urine Protein - Negative Bedside Urine Urobilinogen - Negative Bedside Urine Nitrite - Negative Bedside Urine Leukocytes +/- 15 Esterase MDM Narrative Medical decision making narrative: Self-inflicted right and left anterior thigh lacerations, perhaps 20 on each thigh, all but one superficial. Larger oblique linear 14 cm laceration anteromedial left thigh, no pulsatile bleeding, scant ooze, center depth 2-2.5cm, at wound edges more like 1 cm depth. No visible venules or arterial structures. No foreign bodies visible. Patient on arrival to EMS, told nursing that when she leaves here she would drink herself to , attempted to leavee the department, PD was called and redirected back in the room. She was somewhat agitated but generally re-directable. Patient from room 13 floor mat moved to room 1 for conscious sedation and wound repair of large left anterior deep laceration. See procedure notes for wound closure and sedation. IM ketamine, IV Ativan. Local 1% lidocaine with epinephrine into subcutaneous space and along skin wound edge, total 20mL. Deep component laceration closed 0-Vicryl running locking suture. More superficial subcutaneous laceration layer closed 0-Vicryl running suture. Skin layer closed then with janis. Screening labs notable for blood alcohol level 170s, urine tox screen positive for amphetamine and benzodiazepine and TCA. Acetaminophen and salicylate levels negative. 0030, Tetanus updated, oral cephalexin dose given. Mental status improved, stable for procedure. Moved back to room 13. Medically cleared for DCS consult. 0045, case discussed with DEJA Medellin, he will come to consult in ED for disposition plan 0400, DCS consulting 0530, bed search in progress 0545, case discussed with DEJA Medellin, for now there has been no identified facility willing to take patient, citing varied concerns, such as risk of developing alcohol withdrawal, such as presence of janis closure surgical wound. He defers further bed search to foster care social worker when available later today during regular hours. 0700[facility] 06/07/2024 Dr. Gonzales: Patient signed out to myself while awaiting evaluation with [facility]. Patient was seen by DEJA Medellin unable to identify facility and had a walk away. Dr moreno: Received turned over. Review patient's history and physical exam. Patient has had multiple evaluations by both the DCR and social work. No facility he was capable of taking patient has an inpatient for various reasons. Patient is now luc for safety with foster care social worker. Would like to be discharged home. Is being discharged home with mother. Discharge Plan Departure Patient Disposition: Home Clinical Impression: Suicidal ideation, Lacerations of multiple sites of left leg, Lacerations of multiple sites of right leg, Alcohol abuse Instructions: DI for Laceration Repair, DI for Suicidal Ideation-Adult Activity Restrictions/Additional Instructions: Continue to take all of your medications as directed. You are going to need follow-up in approximately 7-10 days to have the stitches/janis removed from the cut to your leg. You can go to the walk-in clinic or your primary doctor for this. Until then you can put topical antibiotic ointment over the area. You can shower like normal. Return to the emergency department for new or worsening symptoms. Prescriptions: New cephalexin 500 mg capsule 500 mg PO QID 5 Days Qty: 20 0RF No Action alprazolam 1 MG tablet 2 mg PO BEDTIME Qty: 0 gabapentin 600 mg Tablet 1,200 mg PO BEDTIME methocarbamol 500 mg tablet 500 mg PO BID PRN (Reason: muscle spasm) omeprazole 40 mg capsule,delayed release(DR/EC) 40 mg PO DAILY cyclobenzaprine 10 mg tablet 10 mg PO 3XD PRN (Reason: muscle spasm) ondansetron 8 mg tablet,disintegrating 8 mg PO Q8H PRN (Reason: nausea/vomiting) Vraylar 3 mg capsule 3 mg PO DAILY lisdexamfetamine [Vyvanse] 60 mg Capsule 60 mg PO DAILY albuterol sulfate 90 mcg/actuation Aerosol Powdr Breath Activated 2 inh INHALATION Q6H PRN (Reason: Shortness Of Breath Or Wheezing) zolpidem 10 mg tablet 10 mg PO ONCE PM PRN (Reason: Insomnia) lamotrigine 200 mg tablet 200 mg PO DAILY hydroxyzine HCl 50 mg Tablet 50 mg PO BID PRN (Reason: Anxiety) Referrals: Christal Hubbard DO [Primary Care Provider] - Stand Alone Forms: Patient Portal/API/Survey
--- NOTE | 2024-06-06 22:15 | PC.NURSE ---
Provider Dr. Martinez at bedside
--- NOTE | 2024-06-06 22:25 | PC.NURSE ---
While dressing patient's leg, patient stated If I get out of here I am going to drink this away and I asked if that was the answer and she said probably not but hopefully it ends it and I asked your life and she said hopefully.
[2024-06-06 22:27] LABS: Add Manual Diff / Slide Review NO; Basophils Absolute Auto 0 /uL (0-100); Basophils Percent Auto 0.3 % (0-2); Eosinophils Absolute Auto 100 /uL (0-450); Eosinophils Percent Auto 1.3 % (2-4); Hematocrit 40.4 % (36-46); Hemoglobin 13.1 g/dL (12.0-16.0); Lymphocytes Absolute Auto 2600 /uL (1100-4500); Lymphocytes Percent Auto 28.7 % (25-40); Mean Corpuscular HGB Conc 32.3 % (30-36); Mean Corpuscular Hemoglobin 24.1 PG (26-34); Mean Corpuscular Volume 74.7 fL (80-100); Monocytes Absolute Auto 600 /uL (0-900); Monocytes Percent Auto 6.2 % (3-14); Neutrophils Absolute Auto 5800 /uL (1500-7000); Neutrophils Percent Auto 63.5 % (50-75); Platelet Count 305 X10^3/uL (150-400); Red Blood Cell Count 5.41 X10^6/uL (4.0-5.2); Red Cell Distribution Width 14.7 % (11.6-14.8); White Blood Cell Count 9.2 X10^3/uL (4.5-11.0)
[2024-06-06] MEDS: KETAMINE 500 MG/5 ML INJ 400 MG IM (22:34)
[2024-06-06 22:35] LABS: Ur Creatinine Normal (Normal); Ur Specific Gravity Normal (Normal); Urine Amphetamines Positive (Negative); Urine Tetrahydrocannabinol Negative (Negative); Urine pH Normal (Normal)
[2024-06-06 22:36] LABS: UR Morphine/Opiate cutoff 300 Negative (Negative); Urine Barbiturates Negative (Negative); Urine Benzodiazepines Positive (Negative); Urine MDMA Negative (Negative); Urine Methadone Negative (Negative); Urine Methamphetamines Negative (Negative); Urine Oxycodone Negative (Negative); Urine Phencyclidine Negative (Negative); Urine Tricyclic Antidepressant Positive (Negative)
[2024-06-06 22:37] LABS: Urine Cocaine Negative (Negative)
[2024-06-06 22:54] LABS: Pregnancy Test Serum,Qual Negative (Negative)
[2024-06-06 23:11] LABS: Alanine Aminotransferase 35 IU/L (<35); Albumin 4.3 g/dL (3.5-5.0); Albumin Globulin Ratio 1.5 (1.0-2.8); Alkaline Phosphatase 68 U/L (38-126); Aspartate Aminotransferase 32 IU/L (14-36); BUN Creatinine Ratio 4.5 (6-22); Bilirubin Total 0.4 mg/dL (0.2-1.3); Blood Urea Nitrogen 4 mg/dL (7-17); Calcium 9.2 mg/dL (8.4-10.2); Carbon Dioxide 21 mmol/L (22-32); Chloride 109 mmol/L (98-107); Estimated Glomerular Filt Rate > 60 mL/min (>60); Ethanol (ETOH) 175 mg/dL; Globulin 2.8 g/dL (1.7-4.1); Glucose 96 mg/dL (70-100); HEMOLYSIS < 15 (0-50); Potassium 3.4 mmol/L (3.4-5.1); Sodium 142 mmol/L (137-145); Total Protein 7.1 g/dL (6.3-8.2)
[2024-06-06] MEDS: LORazepam 2 MG/ML INJ IV (23:31)
[2024-06-06 23:42] LABS: TSH w/ Reflex to FT4 2.41 uIU/mL (0.47-4.68)
[2024-06-07] VITALS (18 sets, daily range): BP systolic 108–144; BP diastolic 57–89; PULSE 68–117; RESP 14–20; TEMP 36.8; O2SAT 96–100
[2024-06-07] MEDS: BACITRACIN OINT 0.9 GM PCKT 1 APPLIC TOP (00:15)
--- NOTE | 2024-06-07 00:20 | PC.NURSE ---
Bacitracin applied to bilateral thighs to lacerations/wound.
--- NOTE | 2024-06-07 00:30 | PC.NURSE ---
Pt ate sandwich, yogurt, and drinking water. Pt tolerating fluids well.
[2024-06-07] MEDS: cephALEXin 250 MG CAPSULE 500 MG PO ×4 (00:44→19:08)
[2024-06-07] MEDS: TET,DIPH,PERTUSS(ACELL),VAC/PF 0.5 ML SYRINGE IM (00:45)
[2024-06-07] MEDS: ONDANSETRON 4 MG/2 ML INJ IV (01:00)
[2024-06-07 01:41] LABS: Acetaminophen < 10 ug/mL (10-30); Salicylate < 1.0 mg/dL (<20)
--- NOTE | 2024-06-07 02:00 | PC.NURSE ---
Pt calm and cooperative. Denies feeling shaky, no diaphoresis noted. No signs of ETOH withdrawl.
--- NOTE | 2024-06-07 02:39 | PC.NURSE ---
DCR Vignesh at bedside with pt
--- NOTE | 2024-06-07 03:00 | PC.NURSE ---
Pt lying back in [place]. Eyes closed assume asleep. Appears in NAD.
[2024-06-07] MEDS: ACETAMINOPHEN 325 MG TABLET 650 MG PO ×2 (03:26→09:46)
--- NOTE | 2024-06-07 05:42 | PC.NURSE ---
Pt continues to remain calm and cooperative. Lying back in [place], talking quietly with observation staff.
[2024-06-07] MEDS: hydrOXYzine HCL 25 MG TABLET 50 MG PO (09:49)
[2024-06-07] MEDS: estradioL 1 MG TABLET PO (09:57)
[2024-06-07] MEDS: valACYclovir 500 MG TABLET PO (09:58)
[2024-06-07] MEDS: GABAPENTIN 600 MG TABLET PO (09:59)
--- NOTE | 2024-06-07 10:03 | PC.NURSE ---
Provider okayed giving patient medications brought in by family for pt includinmg estradiol 500mg valacyclovir 40mg omeprazole 600mg gabapentin prn dose hydroxyzine HCL 50mg. Medications from home in 2x ziploc bags and called pharmacy to keep possession of her medications.
[2024-06-07 12:40] LABS: COVID19 -Nasal RAPID Negative (Negative)
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
--- NOTE | 2024-06-07 13:01 | CM.SWNOTE ---
Addendum entered by ANGELINA Allen 06/07/24 18:33: ED SPECIAL EDUCATION PROFESSOR DCP Update: SPECIAL EDUCATION PROFESSOR calls [facility], it was reported that there are beds available. SPECIAL EDUCATION PROFESSOR sent a packet for review. It is later reported that pt is not accepted due to not meeting inpatient criteria. SPECIAL EDUCATION PROFESSOR calls [facility], it was reported that there are beds available. SPECIAL EDUCATION PROFESSOR sent a packet for review. It is later reported that pt is not accepted due to not meeting inpatient criteria. SPECIAL EDUCATION PROFESSOR calls [facility], requesting an update on referral sent. It is reported that pt's insurance (any managed Medicare) is not accepted for their residential treatment programs. Pt was still reviewed for dual diagnosis treatment and pt does not meet inpatient criteria. Pt is being recommended for IOP. SPECIAL EDUCATION PROFESSOR reviewed the above with pt and her mother (via phone). Pt states she feels safe with discharging from hospital, denies SI/HI. Pt explains she wants to continue with residential rehab search and self-referral. ED SPECIAL EDUCATION PROFESSOR provided pt with rehab list to continue with bed search. Pt open to [facility] outpatient at this time and consents to this SPECIAL EDUCATION PROFESSOR making referral to [facility]. Pt mom indicated understanding and states she will assist in any way possible. SPECIAL EDUCATION PROFESSOR discussed the [facility] [place] and provided this number to pt and mother. SPECIAL EDUCATION PROFESSOR confirmed pt has a profile open with Care Crisis Line. Plan: Pt to discharge home with mother (mother plans to get rid of all alcohol in home), follow up with [facility] for [facility] assessment on 06/08 at 2:00pm. Pt to also continue with rehab bed search with self-referral. Pt understands she can follow up with Care Crisis Line if necessary. CHARLES Knox Original Note: ED SPECIAL EDUCATION PROFESSOR Note: ED SPECIAL EDUCATION PROFESSOR initiated bed search for residential rehab treatment for co-occurring dx (alcohol use disorder and bipolar I disorder). SPECIAL EDUCATION PROFESSOR calls [facility], it was reported that there are no beds available for tonight but might have availability tomorrow. Requested this SPECIAL EDUCATION PROFESSOR send a packet for review. ED SPECIAL EDUCATION PROFESSOR sent clinicals via [employer] (fax#[phone]). SPECIAL EDUCATION PROFESSOR calls [facility], it was reported that there are no beds available and they are three weeks out. SPECIAL EDUCATION PROFESSOR calls [facility], SPECIAL EDUCATION PROFESSOR left a voice message and received a call back from Admissions, it was reported that there are no beds until July. SPECIAL EDUCATION PROFESSOR calls [facility], it was reported that there are no beds available until July. SPECIAL EDUCATION PROFESSOR calls [facility], SPECIAL EDUCATION PROFESSOR left a voice message on intake line requesting bed census. Plan: Pending acceptance at residential treatment facility vs. rigorous [facility] IOP plan with collaboration between patient, mother and other supports. ED Staff following for discharge coordination. CHARLES Knox
--- NOTE | 2024-06-07 19:22 | PC.NURSE ---
Marcel Burk for pharmacy will return to get patients home medications. Primary RN Pablo frankel.
--- NOTE | 2024-06-07 19:51 | PC.NURSE ---
Marcel Pharmacist, brought in patient's home medications from pharmacy.
--- NOTE | 2024-06-07 19:59 | PC.NURSE ---
Patient received all of her home medications. Patient's mother in room and has possession of them at this time.
== END 2024-06-07 20:12 | disposition home or self-care (01) ==
PROVIDERS: Emergency Medicine; Emergency Provider Emergency Medicine; PCP Family Medicine
DX: R45.851 Suicidal ideations (principal); S81.812A Laceration without foreign body, left lower leg, initial encounter; S81.811A Laceration without foreign body, right lower leg, initial encounter; X78.1XXA Intentional self-harm by knife, initial encounter; Z11.52 Encounter for screening for COVID-19; Z23 Encounter for immunization
CPT/HCPCS: 12005; 80053; 80305; 80320; 80329; 81003; 81025; 84443; 84703; 85025; 87635; 90471; 96374; 96375; 99152; 99153; 99285; 90715; A9270; G0480; J2060; J2405

== ENCOUNTER 2025-03-07 19:55 | Emergency (ER) | payer MEDICARE, MEDICAID, SELFPAY ==
[2023-09-20 13:25] VITALS: BMI 41.4
[2025-03-07 20:24] VITALS: BP 138/79; PULSE 98; RESP 18; TEMP 36.5; O2SAT 100; BMI 36.8
--- NOTE | 2025-03-07 20:27 | DI.RAD.S_ITS ---
PROCEDURE: XR CHEST 1V INDICATIONS: cough TECHNIQUE: One view of the chest was acquired. COMPARISON: [facility], CR, XR CHEST 1V, 09/20/2023, 2:59. FINDINGS: Surgical changes and devices: None. Lungs and pleura: Lungs are clear. No pleural effusions or pneumothorax. Mediastinum: Mediastinal contours appear normal. Heart size is normal. Bones and chest wall: No suspicious bony lesions. Overlying soft tissues appear unremarkable. IMPRESSION: No acute cardiopulmonary abnormality is seen. Dictated by: Carlos Thompson M.D. on 03/07/2025 at 21:27 Approved by: Carlos Thompson M.D. on 03/07/2025 at 21:27
[2025-03-07 21:29] LABS: Coronavirus NL 63 Not Detected (Not Detect); SARS- CoV-2 Not Detected (Not Detecte)
== END 2025-03-07 22:50 | disposition left against medical advice (07) ==
PROVIDERS: Emergency Provider Emergency Medicine; PCP Family Medicine
DX: R05.9 Cough, unspecified (principal); R07.89 Other chest pain; R42 Dizziness and giddiness; R53.1 Weakness
CPT/HCPCS: 71045; 87633; 99281

== ENCOUNTER 2025-05-23 13:56 | Emergency (ER) | payer MEDICARE, MEDICAID, SELFPAY ==
[2023-09-20 13:25] VITALS: BMI 41.4
[2025-05-23 14:01] VITALS: BP 138/67; PULSE 116; RESP 20; TEMP 36.8; O2SAT 96; BMI 36.8
--- NOTE | 2025-05-23 14:05 | EKG_ITS ---
[id number] [address] Test Date: 2025-05-23 Pat Name: Avis Vazquez Department: Room: Gender: Female [employer] Supervisor: CHIDI : 1975 Requested By: Order Number: [id number] Reading MD: Luis Manuel Hernandez MD Measurements Intervals [place] Rate: 119 P: 67 WY: 132 QRS: 27 QRSD: 74 T: 43 QT: 308 QTc: 433 Interpretive Statements Sinus tachycardia Nonspecific ST and T wave abnormality Electronically Signed On 05-23-2025 16:18:29 PDT by Luis Manuel Hernandez MD
[2025-05-23 15:27] LABS: COVID-19 CEPHEID 4-PLEX PCR Negative (Negative); Influenza A - CEPHEID Flu A NEGATIVE (NEGATIVE); Influenza B - CEPHEID Flu B NEGATIVE (NEGATIVE)
[2025-05-23 15:45] VITALS: BP 119/74; PULSE 114; O2SAT 98
--- NOTE | 2025-05-24 15:48 | ED.FEVER ---
HPI - Fever <Wing Solano PA-C - Last Filed: 05/24/25 15:53> General Chief Complaint: Fever Stated Complaint: Covid shot, Hard time breathing , not feeling good Time Seen by Provider: 05/23/25 15:22 Source: patient Mode of arrival: Ambulatory History of Present Illness HPI Narrative: 49-year-old female presents to the ED complaining of fever, body aches and cough after getting a COVID vaccine 3 days prior to arrival. No chest pain, shortness of breath. Patient states that she commonly has side-effects such as these to the flu and COVID vaccines. Related Data Home Medications ?Medication ?Instructions ?Recorded ?Confirmed alprazolam 1 mg tablet 2 mg PO BEDTIME ##0 05/05/17 09/20/23 gabapentin 600 mg tablet 1,200 mg PO BEDTIME 11/24/20 09/20/23 albuterol sulfate 90 mcg/actuation 2 inh inhalation Q6H PRN Shortness 09/20/23 09/20/23 breath activated powder inhaler Of Breath Or Wheezing cariprazine 3 mg capsule (Vraylar) 3 mg PO DAILY 09/20/23 09/20/23 cyclobenzaprine 10 mg tablet 10 mg PO 3XD PRN muscle spasm 09/20/23 09/20/23 hydroxyzine HCl 50 mg tablet 50 mg PO BID PRN Anxiety 09/20/23 09/20/23 lamotrigine 200 mg tablet 200 mg PO DAILY 09/20/23 09/20/23 lisdexamfetamine 60 mg capsule 60 mg PO DAILY 09/20/23 09/20/23 (Vyvanse) methocarbamol 500 mg tablet 500 mg PO BID PRN muscle spasm 09/20/23 09/20/23 omeprazole 40 mg capsule,delayed 40 mg PO DAILY 09/20/23 09/20/23 release ondansetron 8 mg disintegrating 8 mg PO Q8H PRN nausea/vomiting 09/20/23 09/20/23 tablet zolpidem 10 mg tablet 10 mg PO ONCE PM PRN Insomnia 09/20/23 09/20/23 Previous Rx's ?Medication ?Instructions ?Recorded hydrocodone 5 mg-acetaminophen 325 1 tab PO Q6H PRN pain #7 tabs 05/31/ mg tablet Allergies Allergy/AdvReac Type Severity Reaction Status Date / Time Sulfa (Sulfonamide Allergy Intermediate RASH Verified 05/31/25 06:12 Antibiotics) (SULFA (SULFONAMIDE ANTIBIOTICS)) hydrocodone AdvReac Intermediate ITCHING Verified 05/31/25 06:12 Review of Systems <Wing Solano PA-C - Last Filed: 05/24/25 15:53> Constitutional Constitutional: Reports body ache(s), Denies chills, Denies fatigue, Reports fever(s), Denies frequent falls, Denies lethargy and Denies weakness Eyes Eyes: Denies change in vision, Denies eye discharge, Denies irritation and Denies loss of vision ENT Ears, Nose, Mouth, and Throat: Denies change in voice, Denies dizziness, Reports nasal discharge, Denies neck pain, Denies sore throat and Denies throat swelling Cardiovascular Cardiovascular: Denies chest pain, Denies irregular heart rhythm, Denies lightheadedness, Denies palpitations, Denies dyspnea, Denies dyspnea on exertion and Denies orthopnea Respiratory Respiratory: Reports cough, Denies dyspnea, Denies dyspnea on exertion and Denies wheezing Gastrointestinal Gastrointestinal: Denies abdominal pain, Denies change in bowel habits, Denies diarrhea, Denies nausea and Denies vomiting Musculoskeletal Musculoskeletal: Denies neck pain and Denies numbness Integumentary/Breasts Skin/Breast: Denies pruritus, Denies erythema, Denies rash and Denies wounds Neurologic Neurologic: Denies behavioral changes, Denies confusion, Denies dizziness, Denies frequent falls, Denies loss of vision, Denies numbness and Denies weakness Psychiatric Psychiatric: Denies anxiety, Denies behavioral changes, Denies confusion, Denies depression, Denies homicidal ideation and Denies suicidal ideation Endocrine Endocrine: Denies fatigue, Denies flushing and Denies palpitations Hematologic/Lymphatic Hematologic/Lymphatic: Denies easy bruising Allergic/Immunologic Allergic/Immunologic: Denies urticaria, Denies throat swelling and Denies wheezing Patient History <Wing Solano PA-C - Last Filed: 05/24/25 15:53> Medical History Borderline personality disorder Anxiety Suicide ideation (~06/2018) Suicide attempt (~2017) Menorrhagia History of alcoholism Degenerative disc disease, cervical Migraine headache with aura Bipolar disorder with depression Surgical History History of endometrial ablation (02/01/19) Hx of appendectomy (~02/26/20) H/O breast augmentation H/O section History of tonsillectomy H/O tubal ligation Social History household members: family alcohol intake: former tobacco type: vaping alcohol intake frequency: 0-2 drinks per day Exam <Wing Solano PA-C - Last Filed: 05/24/25 15:53> Narrative Exam Narrative: Const General:?cooperative, healthy appearing and comfortable HENNE Head:?normal to inspection Ears:?hearing grossly normal bilaterally Nose:?external nose normal Face and sinus:?normal facial exam and sinuses nontender Mouth:?oral mucosae normal Throat:?posterior oropharynx normal Eyes General:?appearance normal, both eyes and all related structures Neck Neck:?normal visual inspection and no lymphadenopathy noted Resp Effort & Inspection:?normal respiratory effort Auscultation:?clear to auscultation bilaterally Cardio Rate:?regular rate Rhythm:?regular rhythm Neuro General:?patient alert, patient awake and patient oriented x3 Initial Vital Signs Initial Vital Signs: Vital Signs Temperature 98.3 F 05/23/25 14:01 Pulse Rate 116 H 05/23/25 14:01 Respiratory Rate 20 05/23/25 14:01 Blood Pressure 138/67 05/23/25 14:01 Pulse Oximetry 96 05/23/25 14:01 Oxygen Delivery Method Room Air 05/23/25 14:01 <Mahendra Workman MD - Last Filed: 05/31/25 23:49> Initial Vital Signs Initial Vital Signs: Vital Signs Temperature 98.3 F 05/23/25 14:01 Pulse Rate 116 H 05/23/25 14:01 Respiratory Rate 20 05/23/25 14:01 Blood Pressure 138/67 05/23/25 14:01 Pulse Oximetry 96 05/23/25 14:01 Oxygen Delivery Method Room Air 05/23/25 14:01 MDM - Fever <Wing Solano PA-C - Last Filed: 05/24/25 15:53> Lab Data Labs: Lab Results 05/23/25 Range/Units 14:06 SARS-CoV-2 (PCR) Negative (Negative) Influenza A (RT-PCR) Flu a negative (NEGATIVE) Influenza B (RT-PCR) Flu b negative (NEGATIVE) RSV (PCR) Negative (Negative) MDM Narrative Medical decision making narrative: 49-year-old female presents to the ED complaining of fever, body aches and cough after getting a COVID vaccine 3 days prior to arrival. Patient tested negative for the respiratory panel. Patient's symptoms consistent with mounting an immune response to the COVID vaccine versus other viral infection. Discussed findings with patient. Discussed supportive care. ED return precautions were discussed with patient. Patient verbalized understanding. Medical records reviewed: Yes <Mahendra Workman MD - Last Filed: 05/31/25 23:49> Lab Data Labs: Lab Results 05/23/25 Range/Units 14:06 SARS-CoV-2 (PCR) Negative (Negative) Influenza A (RT-PCR) Flu a negative (NEGATIVE) Influenza B (RT-PCR) Flu b negative (NEGATIVE) RSV (PCR) Negative (Negative) MDM Narrative Medical decision making narrative: 49-year-old female presents to the ED complaining of fever, body aches and cough after getting a COVID vaccine 3 days prior to arrival. Patient tested negative for the respiratory panel. Patient's symptoms consistent with mounting an immune response to the COVID vaccine versus other viral infection. Discussed findings with patient. Discussed supportive care. ED return precautions were discussed with patient. Patient verbalized understanding. Medical records reviewed: Yes I was available for consultation during this patient visible it was not involved in the care. Discharge Plan Departure Patient Disposition: Home Clinical Impression: Fever after vaccination Instructions: DI for Fever (Symptom) -- Adult Activity Restrictions/Additional Instructions: You were evaluated in the emergency department today for having a fever, cough and achiness from the COVID and flu vaccines. You may continue to take Tylenol, ibuprofen for your symptoms. You were experiencing these symptoms because your body is trying to build an immune response to these vaccines, which is a good sign. Your symptoms will improve over the next few days. Return to the ED if you have worsening symptoms such as chest pain, shortness of breath. Prescriptions: No Action alprazolam 1 MG tablet 2 mg PO BEDTIME Qty: 0 hydrocodone-acetaminophen 5-325 mg tablet 1 tab PO Q6H PRN (Reason: pain) Qty: 7 0RF gabapentin 600 mg Tablet 1,200 mg PO BEDTIME methocarbamol 500 mg tablet 500 mg PO BID PRN (Reason: muscle spasm) omeprazole 40 mg capsule,delayed release(DR/EC) 40 mg PO DAILY cyclobenzaprine 10 mg tablet 10 mg PO 3XD PRN (Reason: muscle spasm) ondansetron 8 mg tablet,disintegrating 8 mg PO Q8H PRN (Reason: nausea/vomiting) Vraylar 3 mg capsule 3 mg PO DAILY lisdexamfetamine [Vyvanse] 60 mg Capsule 60 mg PO DAILY albuterol sulfate 90 mcg/actuation Aerosol Powdr Breath Activated 2 inh INHALATION Q6H PRN (Reason: Shortness Of Breath Or Wheezing) zolpidem 10 mg tablet 10 mg PO ONCE PM PRN (Reason: Insomnia) lamotrigine 200 mg tablet 200 mg PO DAILY hydroxyzine HCl 50 mg Tablet 50 mg PO BID PRN (Reason: Anxiety) Referrals: Christal Hubbard DO [Primary Care Provider, Family Practice] Stand Alone Forms: Patient Portal/API
== END 2025-05-23 15:55 | disposition home or self-care (01) ==
PROVIDERS: Emergency Medicine; Emergency Provider Student in an Organized Health Care Education/Training Program; PCP Family Medicine
DX: R50.83 Postvaccination fever (principal)
CPT/HCPCS: 87637; 93005; 99282; 99283

== ENCOUNTER 2025-05-31 05:52 | Emergency (ER) | payer MEDICARE, MEDICAID, SELFPAY ==
[2023-09-20 13:25] VITALS: BMI 41.4
[2025-05-31] VITALS (14 sets, daily range): BP systolic 116–176; BP diastolic 71–115; PULSE 86–107; RESP 18–24; TEMP 35.6–36.8; O2SAT 95–100; BMI 36.0
--- NOTE | 2025-05-31 06:05 | ED.ABDPAIN ---
HPI - Abdominal Pain <Sunitha Jose Eduardo, DO - Last Filed: 06/04/25 08:12> General Chief Complaint: Abdominal Pain Stated Complaint: Abdominal Pain Time Seen by Provider: 05/31/25 05:55 History of Present Illness HPI narrative: Patient is a 50-year-old female history of bipolar fibromyalgia, cholecystectomy appendectomy presenting today with severe epigastric pain. He has a reports that she was in her normal state of health last night when she went to bed this pain and nausea woke her up. She could not have any vomiting. Is not radiating to her chest. She recently upped her dose of Trulicity>?>? She has not had problems with it before. However the dose was increased 5 days prior now having pretty severe epigastric pain. No fevers no chills no lower abdominal pain. Related Data Home Medications ?Medication ?Instructions ?Recorded ?Confirmed alprazolam 1 mg tablet 2 mg PO BEDTIME ##0 05/05/17 09/20/23 gabapentin 600 mg tablet 1,200 mg PO BEDTIME 11/24/20 09/20/23 albuterol sulfate 90 mcg/actuation 2 inh inhalation Q6H PRN Shortness 09/20/23 09/20/23 breath activated powder inhaler Of Breath Or Wheezing cariprazine 3 mg capsule (Vraylar) 3 mg PO DAILY 09/20/23 09/20/23 cyclobenzaprine 10 mg tablet 10 mg PO 3XD PRN muscle spasm 09/20/23 09/20/23 hydroxyzine HCl 50 mg tablet 50 mg PO BID PRN Anxiety 09/20/23 09/20/23 lamotrigine 200 mg tablet 200 mg PO DAILY 09/20/23 09/20/23 lisdexamfetamine 60 mg capsule 60 mg PO DAILY 09/20/23 09/20/23 (Vyvanse) methocarbamol 500 mg tablet 500 mg PO BID PRN muscle spasm 09/20/23 09/20/23 omeprazole 40 mg capsule,delayed 40 mg PO DAILY 09/20/23 09/20/23 release ondansetron 8 mg disintegrating 8 mg PO Q8H PRN nausea/vomiting 09/20/23 09/20/23 tablet zolpidem 10 mg tablet 10 mg PO ONCE PM PRN Insomnia 09/20/23 09/20/23 Previous Rx's ?Medication ?Instructions ?Recorded hydrocodone 5 mg-acetaminophen 325 1 tab PO Q6H PRN pain #7 tabs 05/31/25 mg tablet Allergies Allergy/AdvReac Type Severity Reaction Status Date / Time Sulfa (Sulfonamide Allergy Intermediate RASH Verified 05/31/25 06:12 Antibiotics) (SULFA (SULFONAMIDE ANTIBIOTICS)) hydrocodone AdvReac Intermediate ITCHING Verified 05/31/25 06:12 Patient History <Sunitha Whitt DO - Last Filed: 06/04/25 08:12> Medical History Borderline personality disorder Anxiety Suicide ideation (~06/2018) Suicide attempt (~2016) Menorrhagia History of alcoholism Degenerative disc disease, cervical Migraine headache with aura Bipolar disorder with depression Surgical History History of endometrial ablation (02/01/19) Hx of appendectomy (~02/26/20) H/O breast augmentation H/O section History of tonsillectomy H/O tubal ligation Social History household members: family alcohol intake: former tobacco type: vaping alcohol intake frequency: 0-2 drinks per day Exam <Sunitha Whitt DO - Last Filed: 06/04/25 08:12> Initial Vital Signs Initial Vital Signs: Vital Signs Pulse Oximetry 99 05/31/25 06:01 GENERAL: Alert 42-year-old female appears in pretty severe pain and in no acute distress. HEENT: Head atraumatic,EOMI, pupils reactive, face symmetric, moist mucous membranes CARDIOVASCULAR: Regular rate and rhythm without murmurs, rubs or gallops. RESPIRATORY: Breath sounds equal bilaterally, no wheezes rales or rhonchi. ABDOMEN: Soft, tender epigastric region negative Flower's sign lower abdominal areas nontender EXTREMITIES: Normal range of motion, no clubbing or edema. Neurovascularly intact NEUROLOGICAL: Alert and oriented x4.Normal gait and speech. Cranial nerves II through XII grossly intact. SKIN: Warm, dry, no laceration, no petechiae, no rashes or lesions. <Blaire Gonzales DO - Last Filed: 05/31/25 15:31> Initial Vital Signs Initial Vital Signs: Vital Signs Pulse Oximetry 99 05/31/25 06:01 Course <Sunitha Whitt DO - Last Filed: 06/04/25 08:12> Orders Ordered: Discontinued Medications Sodium Chloride (Normal Saline 0.9%) 1,000 mls @ 1,000 mls/hr IV BOLUS ONE Stop: 05/31/25 06:58 Last Infusion: 05/31/25 07:29 Dose: Infused Documented By: Admin: 05/31/25 06:20 Dose: 1,000 mls/hr Documented By: RICARDO [facility]amin[facility] ([facility] 1,000 mg in 100 mls @ 400 mls/hr IV NOW ONE Stop: 05/31/25 07:15 Last Infusion: 05/31/25 08:38 Dose: Infused Documented By: Admin: 05/31/25 07:55 Dose: 400 mls/hr Documented By: MELQUIADES Ketorolac Tromethamine (Ketorolac 30 Mg/Ml Vial) 15 mg IV NOW ONE Stop: 05/31/25 06:08 Last Admin: 05/31/25 06:21 Dose: 15 mg Documented By: RICARDO Metoclopramide HCl (Metoclopramide 10 Mg/2 Ml Inj) 10 mg IV NOW ONE Stop: 05/31/25 07:02 Last Admin: 05/31/25 07:54 Dose: 10 mg Documented By: RB Morphine Sulfate (Morphine 4 Mg/Ml Inj) 4 mg IV NOW ONE Stop: 05/31/25 08:41 Last Admin: 05/31/25 09:04 Dose: 4 mg Documented By: RB Ondansetron HCl (Ondansetron 4 Mg/2 Ml Inj) 4 mg IV NOW ONE Stop: 05/31/25 06:00 Last Admin: 05/31/25 06:21 Dose: 4 mg Documented By: RICARDO Pantoprazole Sodium (Pantoprazole 40 Mg Vial) 40 mg IV NOW ONE Stop: 05/31/25 06:00 Last Admin: 05/31/25 06:21 Dose: 40 mg Documented By: LS Vital Signs Vital signs: Vital Signs - 8 hr 05/31/25 07:40 05/31/25 07:40 05/31/25 07:55 Temperature 98.2 F Pulse Rate 91 H Respiratory Rate Blood Pressure 158/107 H Pulse Oximetry 100 Oxygen Delivery Method 05/31/25 08:00 05/31/25 08:01 05/31/25 08:01 Temperature Pulse Rate 95 H 95 H Respiratory Rate Blood Pressure 168/97 H Pulse Oximetry 100 100 Oxygen Delivery Method 05/31/25 08:30 05/31/25 08:30 05/31/25 09:05 Temperature Pulse Rate 95 H 101 H Respiratory Rate Blood Pressure 176/115 H Pulse Oximetry 99 99 Oxygen Delivery Method 05/31/25 09:06 05/31/25 09:06 05/31/25 09:30 Temperature Pulse Rate 96 H Respiratory Rate Blood Pressure 123/72 116/71 Pulse Oximetry 98 Oxygen Delivery Method 05/31/25 09:30 05/31/25 10:03 Temperature Pulse Rate 86 Respiratory Rate 18 Blood Pressure 121/78 Pulse Oximetry 95 98 Oxygen Delivery Method Room Air <Blaire Gonzales, - Last Filed: 05/31/25 15:31> Orders Ordered: Discontinued Medications Sodium Chloride (Normal Saline 0.9%) 1,000 mls @ 1,000 mls/hr IV BOLUS ONE Stop: 05/31/25 06:58 Last Infusion: 05/31/25 07:29 Dose: Infused Documented By: Admin: 05/31/25 06:20 Dose: 1,000 mls/hr Documented By: RICARDO Acetaminophen (Ofirmev) 1,000 mg in 100 mls @ 400 mls/hr IV NOW ONE Stop: 05/31/25 07:15 Last Infusion: 05/31/25 08:38 Dose: Infused Documented By: Admin: 05/31/25 07:55 Dose: 400 mls/hr Documented By: RB Ketorolac Tromethamine (Ketorolac 30 Mg/Ml Vial) 15 mg IV NOW ONE Stop: 05/31/25 06:08 Last Admin: 05/31/25 06:21 Dose: 15 mg Documented By: RICARDO Metoclopramide HCl (Metoclopramide 10 Mg/2 Ml Inj) 10 mg IV NOW ONE Stop: 05/31/25 07:02 Last Admin: 05/31/25 07:54 Dose: 10 mg Documented By: RB Morphine Sulfate (Morphine 4 Mg/Ml Inj) 4 mg IV NOW ONE Stop: 05/31/25 08:41 Last Admin: 05/31/25 09:04 Dose: 4 mg Documented By: RB Ondansetron HCl (Ondansetron 4 Mg/2 Ml Inj) 4 mg IV NOW ONE Stop: 05/31/25 06:00 Last Admin: 05/31/25 06:21 Dose: 4 mg Documented By: RICARDO Pantoprazole Sodium (Pantoprazole 40 Mg Vial) 40 mg IV NOW ONE Stop: 05/31/25 06:00 Last Admin: 05/31/25 06:21 Dose: 40 mg Documented By: RICARDO Vital Signs Vital signs: Vital Signs - 8 hr 05/31/25 07:40 05/31/25 07:40 05/31/25 07:55 Temperature 98.2 F Pulse Rate 91 H Respiratory Rate Blood Pressure 158/107 H Pulse Oximetry 100 Oxygen Delivery Method 05/31/25 08:00 05/31/25 08:01 05/31/25 08:01 Temperature Pulse Rate 95 H 95 H Respiratory Rate Blood Pressure 168/97 H Pulse Oximetry 100 100 Oxygen Delivery Method 05/31/25 08:30 05/31/25 08:30 05/31/25 09:05 Temperature Pulse Rate 95 H 101 H Respiratory Rate Blood Pressure 176/115 H Pulse Oximetry 99 99 Oxygen Delivery Method 05/31/25 09:06 05/31/25 09:06 05/31/25 09:30 Temperature Pulse Rate 96 H Respiratory Rate Blood Pressure 123/72 116/71 Pulse Oximetry 98 Oxygen Delivery Method 05/31/25 09:30 05/31/25 10:03 Temperature Pulse Rate 86 Respiratory Rate 18 Blood Pressure 121/78 Pulse Oximetry 95 98 Oxygen Delivery Method Room Air MDM - Abdominal Pain <Sunitha Whitt, DO - Last Filed: 06/04/25 08:12> Lab Data 05/31/25 06:09 05/31/25 06:09 Labs: Lab Results 05/31/25 Range/Units 06:09 WBC 7.5 (4.5-11.0) X10^3/uL RBC 5.87 H (4.0-5.2) X10^6/uL Hgb 13.4 (12.0-16.0) g/dL Hct 40.9 (36-46) % MCV 69.6 L (80-100) fL MCH 22.9 L (26-34) PG MCHC 32.9 (30-36) % RDW 14.5 (11.6-14.8) % Plt Count 483 H (150-400) X10^3/uL Neut % (Auto) 54.0 (50-75) % Lymph % (Auto) 36.5 (25-40) % [place] % (Auto) 7.5 (3-14) % Eos % (Auto) 1.1 L (2-4) % Baso % (Auto) 0.9 (0-2) % Neut # (Auto) 4000 (1527-1521) /uL Lymph # (Auto) 2700 (8629-8105) /uL [place] # (Auto) 600 (0-900) /uL Eos # (Auto) 100 (0-450) /uL Baso # (Auto) 100 (0-100) /uL RBC Morphology See below Microcytosis 2+ H Sodium 137 (137-145) mmol/L Potassium 3.9 (3.4-5.1) mmol/L Chloride 104 (98-107) mmol/L Carbon Dioxide 19 L (22-32) mmol/L BUN 7 (7-17) mg/dL Creatinine 0.95 (0.52-1.04) mg/dL Estimated GFR > 60 (>60) mL/min BUN/Creatinine Ratio 7.4 (6-22) Glucose 138 H (70-99) mg/dL Calcium 9.3 (8.4-10.2) mg/dL Total Bilirubin 0.6 (0.2-1.3) mg/dL AST 34 (14-36) IU/L ALT 34 (<35) IU/L Alkaline Phosphatase 79 (38-126) U/L Troponin I < 0.012 (0.01-0.034) ng/mL Total Protein 7.9 (6.3-8.2) g/dL Albumin 4.8 (3.5-5.0) g/dL Globulin 3.1 (1.7-4.1) g/dL Albumin/Globulin Ratio 1.5 (1.0-2.8) Lipase 121 (23-300) U/L Point of care testing: Urine Dip Bedside Urine Glucose Negative Bedside Urine Bilirubin - Negative Bedside Urine Ketone - Negative Urine Specific [place] 1.005 Bedside Urine Occult Blood - Negative Bedside Urine pH 8.0 Bedside Urine Protein - Negative Bedside Urine Urobilinogen - Negative Bedside Urine Nitrite - Negative Bedside Urine Leukocytes - Negative Esterase ECG Data Attestation: I personally reviewed and interpreted this ECG as follows: Prior ECG tracings: available for review Interpretation: Normal sinus rhythm rate 107 CA interval 132 QRS [address] changes no T-wave inversions MDM Narrative Medical decision making narrative: Patient is 50-year-old female presenting today with epigastric pain nausea vomiting. She is on GLP 1 inhibitor of the dose recently increased she thinks she might have some gastroparesis. She has a surgical history of prior cholecystectomy and appendectomy. Blood work has been reviewed CBC shows no leukocytosis or anemia CMP no electrolyte abnormality although bicarb is 19 creatinine 0.9 Bilirubin liver enzymes and lipase all within normal limits Troponin is negative EKGs has been reviewed sinus rhythm no ischemia 0700 patient reexamined she just vomited still very tender in epigastric region. I discussed with patient about ordering a CT. 05/31/2025 Dr. Gonzales: Patient signed out to myself by Dr. Whitt patient presents with the epigastric pain nausea and vomiting had a recent increase in GLP 1 inhibitor dosage suspect a potential gastroparesis but has had prior cholecystectomy and appendectomy. Blood work was reviewed she will platelets of 483 normal white count hemoglobin is 13.4, CO2 is 19 electrolytes, BUN and creatinine are otherwise appropriate glucose is 138 LFTs are normal troponins less than 0.012 with a lipase of 121. EKG shows sinus tachycardia rate of 107 CA 132 QRS is 78 QTC of 397, no acute ST elevation. Nonspecific ST-T change. Patient has prior from 05/2025, no acute ST changes appreciate CT abdomen pelvis shows no acute intra-abdominal process. Urine point of care is negative Patient received Toradol Zofran, pantoprazole and fluids. Patient's nausea improved but was still uncomfortable received morphine 4 mg. Patient feeling much more comfortable repeat evaluation reviewed all of her findings she notes she had increased dose in her GLP 1 inhibitor but also started Chantix yesterday took it in the late afternoon. This can sometimes have nausea or vomiting adverse reaction discuss could possibly have some synergistic effect as well. Patient feels comfortable returning home reviewed all of her findings we will have her hold her medications for this week and touch base with her primary care to follow up her medications and plan. Discussed return precautions all questions answered. <Blaire Gonzales, DO - Last Filed: 05/31/25 15:31> Lab Data Labs: Lab Results 05/31/25 Range/Units 06:09 WBC 7.5 (4.5-11.0) X10^3/uL RBC 5.87 H (4.0-5.2) X10^6/uL Hgb 13.4 (12.0-16.0) g/dL Hct 40.9 (36-46) % MCV 69.6 L (80-100) fL MCH 22.9 L (26-34) PG MCHC 32.9 (30-36) % RDW 14.5 (11.6-14.8) % Plt Count 483 H (150-400) X10^3/uL Neut % (Auto) 54.0 (50-75) % Lymph % (Auto) 36.5 (25-40) % [place] % (Auto) 7.5 (3-14) % Eos % (Auto) 1.1 L (2-4) % Baso % (Auto) 0.9 (0-2) % Neut # (Auto) 4000 (1528-1178) /uL Lymph # (Auto) 2700 (6066-2088) /uL [place] # (Auto) 600 (0-900) /uL Eos # (Auto) 100 (0-450) /uL Baso # (Auto) 100 (0-100) /uL RBC Morphology See below Microcytosis 2+ H Sodium 137 (137-145) mmol/L Potassium 3.9 (3.4-5.1) mmol/L Chloride 104 (98-107) mmol/L Carbon Dioxide 19 L (22-32) mmol/L BUN 7 (7-17) mg/dL Creatinine 0.95 (0.52-1.04) mg/dL Estimated GFR > 60 (>60) mL/min BUN/Creatinine Ratio 7.4 (6-22) Glucose 138 H (70-99) mg/dL Calcium 9.3 (8.4-10.2) mg/dL Total Bilirubin 0.6 (0.2-1.3) mg/dL AST 34 (14-36) IU/L ALT 34 (<35) IU/L Alkaline Phosphatase 79 (38-126) U/L Troponin I < 0.012 (0.01-0.034) ng/mL Total Protein 7.9 (6.3-8.2) g/dL Albumin 4.8 (3.5-5.0) g/dL Globulin 3.1 (1.7-4.1) g/dL Albumin/Globulin Ratio 1.5 (1.0-2.8) Lipase 121 (23-300) U/L Point of care testing: Urine Dip Bedside Urine Glucose Negative Bedside Urine Bilirubin - Negative Bedside Urine Ketone - Negative Urine Specific [place] 1.005 Bedside Urine Occult Blood - Negative Bedside Urine pH 8.0 Bedside Urine Protein - Negative Bedside Urine Urobilinogen - Negative Bedside Urine Nitrite - Negative Bedside Urine Leukocytes - Negative Esterase MDM Narrative Medical decision making narrative: Patient is 50-year-old female presenting today with epigastric pain nausea vomiting. She is on GLP 1 inhibitor of the dose recently increased she thinks she might have some gastroparesis. She has a surgical history of prior cholecystectomy and appendectomy. Blood work has been reviewed CBC shows no leukocytosis or anemia CMP no electrolyte abnormality although bicarb is 19 creatinine 0.9 Bilirubin liver enzymes and lipase all within normal limits Troponin is negative EKGs has been reviewed 0700 patient reexamined she just vomited still very tender in epigastric region. I discussed with patient about ordering a CT. 05/31/2025 Dr. Gonzales: Patient signed out to myself by Dr. Whitt patient presents with the epigastric pain nausea and vomiting had a recent increase in GLP 1 inhibitor dosage suspect a potential gastroparesis but has had prior cholecystectomy and appendectomy. Blood work was reviewed she will platelets of 483 normal white count hemoglobin is 13.4, CO2 is 19 electrolytes, BUN and creatinine are otherwise appropriate glucose is 138 LFTs are normal troponins less than 0.012 with a lipase of 121. EKG shows sinus tachycardia rate of 107 CA 132 QRS is 78 QTC of 397, no acute ST elevation. Nonspecific ST-T change. Patient has prior from 05/2025, no acute ST changes appreciate CT abdomen pelvis shows no acute intra-abdominal process. Urine point of care is negative Patient received Toradol Zofran, pantoprazole and fluids. Patient's nausea improved but was still uncomfortable received morphine 4 mg. Patient feeling much more comfortable repeat evaluation reviewed all of her findings she notes she had increased dose in her GLP 1 inhibitor but also started Chantix yesterday took it in the late afternoon. This can sometimes have nausea or vomiting adverse reaction discuss could possibly have some synergistic effect as well. Patient feels comfortable returning home reviewed all of her findings we will have her hold her medications for this week and touch base with her primary care to follow up her medications and plan. Discussed return precautions all questions answered. Discharge Plan Departure Patient Disposition: Home Clinical Impression: Nausea & vomiting, Epigastric abdominal pain Instructions: Nausea and Vomiting-Adult Activity Restrictions/Additional Instructions: Follow up with your physician for rechecked. I would have you hold your GLP 1 and your Chantix for the next week. Talk with your physician about whether they would want she had a restart on your normal dose of your GLP 1. Your labs and imaging today did not show any major changes but if you are having persistent mild symptoms talk with your physician they may wish to repeat your labs. You can take [place] 1-2 tablets every 6 hours as needed for pain. This medication can make you sleepy do not drive, perform hazardous activities or make any major decisions while taking it. This medication will make you constipated please take a stool softener once to twice daily until stools are soft and regular. Prescription sent to [facility] in [place] Please return for fevers, new or worsening abdominal back or flank pain, any persistent vomiting, black or bloody stools, passing out, new chest pain or shortness of breath or other new or concerning changes. Prescriptions: New hydrocodone-acetaminophen 5-325 mg tablet 1 tab PO Q6H PRN (Reason: pain) Qty: 7 0RF No Action alprazolam 1 MG tablet 2 mg PO BEDTIME Qty: 0 gabapentin 600 mg Tablet 1,200 mg PO BEDTIME methocarbamol 500 mg tablet 500 mg PO BID PRN (Reason: muscle spasm) omeprazole 40 mg capsule,delayed release(DR/EC) 40 mg PO DAILY cyclobenzaprine 10 mg tablet 10 mg PO 3XD PRN (Reason: muscle spasm) ondansetron 8 mg tablet,disintegrating 8 mg PO Q8H PRN (Reason: nausea/vomiting) Vraylar 3 mg capsule 3 mg PO DAILY lisdexamfetamine [Vyvanse] 60 mg Capsule 60 mg PO DAILY albuterol sulfate 90 mcg/actuation Aerosol Powdr Breath Activated 2 inh INHALATION Q6H PRN (Reason: Shortness Of Breath Or Wheezing) zolpidem 10 mg tablet 10 mg PO ONCE PM PRN (Reason: Insomnia) lamotrigine 200 mg tablet 200 mg PO DAILY hydroxyzine HCl 50 mg Tablet 50 mg PO BID PRN (Reason: Anxiety) Referrals: Christal Hubbard DO [Non-Staff, Family Practice] Stand Alone Forms: Patient Portal/API
--- NOTE | 2025-05-31 06:14 | EKG_ITS ---
[id number] [address] Test Date: 2025-05-31 Pat Name: Avis Vazquez Department: 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
[2025-05-31 06:16] LABS: Add Manual Diff / Slide Review NO; Hematocrit 40.9 % (36-46); Hemoglobin 13.4 g/dL (12.0-16.0); Lymphocytes Absolute Auto 2700 /uL (1100-4500); Mean Corpuscular HGB Conc 32.9 % (30-36); Mean Corpuscular Hemoglobin 22.9 PG (26-34); Mean Corpuscular Volume 69.6 fL (80-100); Platelet Count 483 X10^3/uL (150-400)
[2025-05-31] MEDS: SODIUM CHLORIDE 0.9% 1,000 ML 1000 ML IV (06:20)
[2025-05-31] MEDS: ONDANSETRON 4 MG/2 ML INJ IV (06:21)
[2025-05-31] MEDS: PANTOPRAZOLE 40 MG VIAL IV (06:21)
[2025-05-31] MEDS: KETOROLAC 30 MG/ML VIAL 15 MG IV (06:21)
[2025-05-31 06:28] LABS: Alanine Aminotransferase 34 IU/L (<35); Albumin 4.8 g/dL (3.5-5.0); Albumin Globulin Ratio 1.5 (1.0-2.8); Alkaline Phosphatase 79 U/L (38-126); Blood Urea Nitrogen 7 mg/dL (7-17); Calcium 9.3 mg/dL (8.4-10.2); Carbon Dioxide 19 mmol/L (22-32); Chloride 104 mmol/L (98-107); Estimated Glomerular Filt Rate > 60 mL/min (>60); Globulin 3.1 g/dL (1.7-4.1); Glucose 138 mg/dL (70-99); HEMOLYSIS < 15 (0-50); Lipase 121 U/L (23-300); Potassium 3.9 mmol/L (3.4-5.1); Sodium 137 mmol/L (137-145); Total Protein 7.9 g/dL (6.3-8.2)
[2025-05-31 06:39] LABS: Microcytosis 2+; Troponin I < 0.012 ng/mL (0.01-0.034)
--- NOTE | 2025-05-31 07:01 | DI.CT.S_ITS ---
PROCEDURE: CT ABDOMEN PELVIS W CON INDICATIONS: epigastric pain with vomiting TECHNIQUE: After the administration of intravenous contrast, axial sections acquired from the lung bases to the pubic symphysis. Coronal and sagittal reformats were performed. For radiation dose reduction, the following was used: automated exposure control, adjustment of mA and/or kV according to patient size. COMPARISON: [facility], CT, CT ABDOMEN PELVIS W CON, 02/26/2020, 2:28. FINDINGS: Image quality: Diagnostic. Lower Chest: No significant findings. ABDOMEN: Liver: No solid mass. Gallbladder: Likely absent Biliary ducts: No biliary dilation. Pancreas: No ductal dilation. Spleen: Size is within normal limits. Adrenal Glands: No adrenal nodules. Kidneys and Ureters: No hydronephrosis. No solid mass. No complex renal cystic lesion which requires follow up. Stomach and Bowel: Normal colonic caliber, without significant wall thickening. Interval appendectomy. Peritoneum: No abnormal intraperitoneal fluid. No free air. Ventral Wall: No significant ventral hernia. Abdominal Nodes: No retroperitoneal or mesenteric adenopathy by size criteria. Vessels: Aorta and inferior vena cava are normal in size. PELVIS: Pelvic Organs: Hysterectomy. Small left ovarian cyst. Bladder: No bladder wall thickening, accounting for underdistention. Pelvic Nodes: No enlarged lymph nodes. Miscellaneous: No inguinal hernias are seen. Bones: No aggressive osseous abnormality. IMPRESSION: No acute abdominal process. Dictated by: Cabrera Hines M.D. on 05/31/2025 at 8:01 Approved by: Cabrera Hines M.D. on 05/31/2025 at 8:03
[2025-05-31] MEDS: METOCLOPRAMIDE 10 MG/2 ML INJ IV (07:54)
[2025-05-31] MEDS: ACETAMINOPHEN IV 1,000 MG/100 ML VIAL 400 MG IV (07:55)
[2025-05-31] MEDS: MORPHINE 4 MG/ML INJ IV (09:04)
== END 2025-05-31 10:04 | disposition home or self-care (01) ==
PROVIDERS: Emergency Medicine; Emergency Provider Emergency Medicine; PCP Student in an Organized Health Care Education/Training Program
DX: R10.13 Epigastric pain (principal); R11.2 Nausea with vomiting, unspecified; Z79.85 Long-term (current) use of injectable non-insulin antidiabetic drugs
CPT/HCPCS: 74177; 80053; 81003; 83690; 84484; 85025; 93005; 93010; 96361; 96365; 96375; 99284; J0131; J1885; J2272; J2405; J2470; J2765; J7030; Q9967